=== PATIENT | female | born 1935 | race Caucasian/White ===

== ENCOUNTER 2020-04-22 18:50 | Observation (INO) ==
[2020-04-22] MEDS ORDERED: ONDANSETRON INJ 2 MG/ML 2 ML VIAL IV STA (19:10)
[2020-04-22] MEDS ORDERED: SODIUM CHLORIDE 0.9% 1000ML 500 ML IV ONE (19:10)
[2020-04-22 19:30] LABS: Basophils # (auto) 0.01 K/uL (0-0.2); Basophils % (auto) 0.1 %; Eosinophils # (auto) 0.05 K/uL (0-0.5); Eosinophils % (auto) 0.4 %; Hematocrit (blood only) 41.3 % (37-47); Hemoglobin 14.1 g/dL (12.0-16.0); Immature Granulocytes # (auto) 0.04 K/uL (0.00-0.02); Immature Granulocytes % (auto) 0.3 %; Lymphocytes # (auto) 1.27 K/uL (1.2-3.4); Lymphocytes % (auto) 10.4 %; Mean Corpuscular Hemoglobin 30.7 pg (25-34); Mean Corpuscular Hgb Conc 34.1 g/dL (32-36); Mean Platelet Volume 10.1 fL (7.4-10.4); Monocytes # (auto) 0.35 K/uL (0.11-0.59); Monocytes % (auto) 2.9 %; Neutrophils # (auto) 10.46 K/uL (1.4-6.5); Neutrophils % (auto) 85.9 %; Platelet Count 132 K/uL (130-400); RDW Coefficient of Variation 13.8 % (11.5-14.5); RDW Standard Deviation 45.5 fL (36.4-46.3); Red Blood Count 4.59 M/uL (4.2-5.4); White Blood Count 12.18 K/uL (4.8-10.8)
[2020-04-22 19:46] LABS: Alanine Aminotransferase 15 U/L (12-78); Aspartate Aminotransferase 20 U/L (15-37); BUN Creatinine Ratio 15.5 (10-20); Blood Urea Nitrogen 18 mg/dl (7-18); Calcium 9.7 mg/dl (8.5-10.1); Carbon Dioxide 26 mmol/L (21-32); Chloride 105 mmol/L (98-107); Creatinine Clr Calc Pharmacy 38.5 ml/min; Est GFR (African American) 48.5; Est GFR (Non-African American) 41.9; Glucose 134 mg/dl (70-99); Lipase 62 U/L (73-393); Potassium 3.5 mmol/L (3.5-5.1); Sodium 139 mmol/L (136-145)
[2020-04-22 19:51] LABS: Alkaline Phosphatase 77 U/L (45-117); Bilirubin,Total 0.8 mg/dl (0.2-1); Globulin 3.8 gm/dl (2.5-4.0); Total Protein 7.8 gm/dl (6.4-8.2); Troponin I < 0.015 ng/ml (0-0.045)
[2020-04-22] MEDS ORDERED: IOVERSOL 100ml IV ONE (19:57)
--- NOTE | 2020-04-22 20:18 | CT Scan Report ---
HEAD CT NONCONTRAST CT DOSE: 537.48 mGy.cm HISTORY: nausea vomiting, dizziness TECHNIQUE: Multiaxial CT images of the head were performed without the use of intravenous contrast. A utomated exposure control was utilized for this study. A dose lowering technique was utilized adheri ng to the principles of ALARA. Comparison: None. Findings: The paranasal sinuses and mastoid air cells are clear. The calvarium and skull base are int act. There is no mass, hematoma, midline shift, acute infarct. White matter hypodensity is nonspecifi c but suggestive of microvascular ischemic change. The ventricles and sulci demonstrate mild age-rela kiana involutional changes. 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 1 cm focus of encephalomalacia within the right cerebellar hemisphere is also consist ent with an old infarct. Impression: No acute intracranial abnormality. Atrophy and microvascular ischemic changes. A few old small infarc ts as described above. ACT 112: Negative or not required by law. Electronically signed by: Jarred Quintanilla M.D. 04/22/2020 8:17 PM
--- NOTE | 2020-04-22 20:26 | CT Scan Report ---
ABDOMEN AND PELVIS CT WITH IV CONTRAST CT DOSE: 1323.89 mGy.cm HISTORY: nausea vomiting TECHNIQUE: Multiaxial CT images of the abdomen and pelvis were performed following the use of intrave nous contrast. A dose lowering technique was utilized adhering to the principles of ALARA. COMPARISON STUDY: Abdomen and pelvis CT 02/14/2007. FINDINGS: Patchy groundglass densities and a few linear densities within the lung bases. This may rep resent mild pulmonary edema or an atypical pneumonia. The heart is enlarged. Pacemaker wires are note d. No pleural or pericardial effusions. There are poststernotomy changes. No pneumoperitoneum. No pne umatosis. No suspicious lytic or blastic osseous lesions. Subtle nodular contour to the liver consist ent with mild cirrhosis. No hepatic or splenic masses. The adrenal glands, pancreas, and right kidney are unremarkable. There is a punctate stone within the left kidney. A 6.4 cm exophytic cyst within t he lower pole the left kidney. No ureteral stones. No hydronephrosis. Multiple small gallstones parti ally filling the gallbladder. The gallbladder is distended. No definite gallbladder wall thickening. Normal caliber common bile duct. Calcified plaque within the normal caliber abdominal aorta. No retro peritoneal lymphadenopathy. The bladder, uterus, bilateral adnexa are within normal limits. No pelvic free fluid. A few colonic diverticula. No evidence for acute diverticulitis. No bowel wall thickenin g or obstruction. Normal appendix. IMPRESSION: 1. Multiple small gallstones within a distended gallbladder. No definite gallbladder wall thickening. Clinical correlation recommended to assess for the possibility of a developing acute cholecystitis g iven the gallbladder distention. 2. Patchy groundglass densities within the lung bases and cardiomegaly. This may represent mild pulmo nary edema or an atypical pneumonia. 3. Cirrhotic liver. 4. Left-sided nephrolithiasis. No ureteral stones. No hydronephrosis. 5. No bowel wall thickening or obstruction. 6. Normal appendix. ACT 112: Negative or not required by law. Electronically signed by: Jarred Quintanilla M.D. 04/22/2020 8:25 PM
[2020-04-22] MEDS ORDERED: PIPERACILL/TAZOBAC CONSULT ACTIVE PRN (20:42)
[2020-04-22] MEDS ORDERED: PIPERACILLIN/TAZOBACTAM 4.5 GM/120 ML BAG IV ONE (20:42)
--- NOTE | 2020-04-22 20:59 | Surgery Consultation ---
Date of Consultation April 22, 2020 Assessment & Plan (1) Cholelithiasis: -pt. is pain free and has normal LFTs -no surgical intervention at this time -pt. will need to be treated for underlying pneumonia prior to entertaining surgery Dr. Patel-Caroline saw the patient in the emergency room with her daughter-she appears to be resting comfortably and in no distress Her abdomen is soft she has no tenderness and is not complaining of any abdominal pain Her gallbladder on CT is distended with multiple gallstones but no thickening or pericholecystic fluid to indicate acute cholecystitis We will follow her with you with no urgent plan for cholecystectomy. May consider a HIDA scan depending on her progress History of Present Illness History of Present Illness 84 year old female presented to ED due to N/V over the past 24 hours. She denies cough or SOB. No fevers. She denies abdominal pain. No weight loss. No post-prandial abdominal pain. She denies recent travel or exposure to any contacts with COVID-19. In the ED, she was afebrile with stable vital signs. WBC was 12.1 Electrolytes, LFTs, and lipase were normal. CT scan showed distention of GB with gallstones. No GB wall thickening. She was noted to have bibasilar infiltrates. At the time of my exam she was resting comfortable in bed in no distress. Allergies Allergy/AdvReac Type Severity Reaction Status Date / Time oxycodone Allergy Intermediate HIVES Verified 04/22/20 20:15 propoxyphene Allergy Intermediate RASH Verified 04/22/20 20:15 lisinopril Allergy Unknown patient Verified 04/22/20 20:15 does not remember Home Medications Home Medications Medication Instructions Recorded Confirmed Type ascorbic acid (vitamin C) 100 mg 100 mg PO DAILY tab 06/10/19 04/22/20 History tablet cholecalciferol (vitamin D3) 25 25 mcg PO DAILY tab 06/10/19 04/22/20 History mcg (1,000 unit) tablet levothyroxine 125 mcg tablet 125 mcg PO DAILY #90 tab 08/26/19 04/22/20 Rx pen needle, diabetic 31 gauge x #100 ea 11/25/19 01/23/20 Rx 5/16" metoprolol succinate 100 mg 100 mg PO DAILY #90 tab 12/17/19 04/22/20 Rx tablet,extended release 24 hr lancing device with lancets kit #1 ea 01/09/20 01/23/20 Rx furosemide 40 mg tablet 40 mg PO DAILY #30 tab 02/03/20 04/22/20 Rx rivaroxaban 15 mg tablet 15 mg PO DAILY #90 tab 02/05/20 04/22/20 Rx flash glucose scanning reader #1 ea 02/15/20 Rx flash glucose sensor #1 ea 02/15/20 Rx amlodipine 5 mg tablet 5 mg PO BID #180 tab 02/19/20 04/22/20 Rx metformin 1,000 mg tablet 1,000 mg PO BID #180 tab 02/19/20 04/22/20 Rx calcium carbonate-vitamin D3 1 tab PO DAILY 04/22/20 04/22/20 History [Calcium 600 + D(3)] insulin glargine [Basaglar KwikPen 30 units SQ QAM 04/22/20 04/22/20 History U-100 Insulin] grhbnolrkbte-hejkrohs-vnflcj 1 tab PO DAILY 04/22/20 04/22/20 History [Centrum Silver] pravastatin 40 mg PO QPM 04/22/20 04/22/20 History Patient History Medical History (Updated 04/22/20 @ 20:56 by Leroy Zamorano PA-C) Atrial fibrillation with normal ventricular rate Diabetes DVT of lower extremity (deep venous thrombosis) History of cardioversion HX: breast cancer Hypertension Hypothyroidism Pure hypercholesterolemia Surgical History (Updated 04/16/20 @ 14:12 by Hernan Delaney MD) H/O aortic valve replacement History of hysterectomy Knee joint replacement status S/P breast lumpectomy S/P cardiac catheterization S/P rotator cuff repair S/P umbilical hernia repair, follow-up exam Family History Mother Myocardial infarction Cardiac disorder Brother Myocardial infarction Denies family history of Colon cancer Ovarian cancer Prostate cancer Breast cancer Social History Smoking Status: Never smoker Age Quit Using Tobacco: 31; Second Hand Exposure: No; Hx Alcohol Use: No Hx Substance Use: No Visual Impairment: No Limitations Hearing Ability: Hard of Hearing marital status: Single Current Living Situation: Alone current occupational status: retired Childhood Exposure to Second-Hand Smoke: No Dental Care, Regularly: No Physical Activity Frequency: Does not Exercise Seatbelt Use: always Review of Systems Constitutional: no fever and no chills Eyes: no diplopia Ear, Nose, Mouth, Throat: + hearing loss Respiratory: no cough and no dyspnea Cardiovascular: no chest pain Gastrointestinal: + nausea and + vomiting; no abdominal pain Genitourinary: no dysuria Musculoskeletal: no back pain Integumentary: no rash Neurologic: no localized weakness Physical Exam Constitutional: well developed and well nourished; no acute distress Eyes: wears glasses ENMT: Ears: no hearing impairment Neck: trachea midline Respiratory: normal respiratory effort; no respiratory distress and no labored breathing BS decreased slightly at bases Cardiovascular: Rate/Rhythm: regular rate and regular rhythm Gastrointestinal (Abdomen): Inspection/Auscultation: normal bowel sounds; abdomen not distended Percussion/Palpation: abdomen soft; abdomen nontender and no guarding Musculoskeletal: no calf pain Skin: no rashes, warm and dry Neurologic: moves all extremities Results & Data ([facility]) Vital Signs (Past 12 Hours) Vital Signs Temp Pulse Resp BP Pulse Ox 04/22/20 20:30 80 18 136/78 92 04/22/20 20:23 82 18 147/76 H 92 04/22/20 19:34 97 04/22/20 19:04 36.4 C L 85 20 113/74 89 L PG Care Time/CCT Total # of Minutes Spent Total Time Spent with Patient: Total time spent is greater than 50% in c oordination of care (as documented) at patient's floor/unit and/or counseling patient: Coding Level of Care Code 23358 Inpt Consult Level 5 Diagnoses Cholelithiasis K80.20
--- NOTE | 2020-04-22 21:13 | Emergency Department Note ---
Impression & Plan Respiratory failure with hypoxia, Pneumonia, Nausea & vomiting, Dizziness ED Provider Note NAME: GONZÁLEZ DICKENS AGE: 84 SEX: F : 1935 ARRIVES VIA: Ambulance INFORMANT: Patient, ED PROVIDER(S): Jey Denny MD Chief Complaint: Nausea, vomiting, dizziness HPI: Does present with the above complaints. He started today just around 1:30 PM. The patient states that she had gone about her normal day and been out shopping with the patient gradually felt the symptoms and they progressively got worse. The patient believes that she has vomited about 6 times. Patient is on rivaroxaban for history of A. fib. The patient denies any headache, shortness of breath, chest pain, or current nausea or vomiting. The patient denies any recent changes in medications or diet. The patient denies any recent travel. The patient did have a normal BSG prior to arrival. The patient was also noted to be in the high 80s and was placed on a small amount of supplemental oxygen. The patient does have a remote history of smoking many many years ago. The patient denies any current alcohol or tobacco use. The patient denies any vertiginous symptoms, numbness tingling or weakness. ROS: See HPI for pertinent positives and negatives. A total of 10 systems were reviewed and otherwise negative. Past medical history: See below Surgical history: See below Social history: See below Physical Exam: GENERAL: Wearing glasses and a mask, nasal cannula in place. NAD, non-toxic. EYE EXAM: Normal conjunctiva. PERRL, no anisocoria and EOM's grossly intact w/o pain. NECK: Supple, no nuchal rigidity, no adenopathy, non-tender. No signs of meningismus. LUNGS: Clear to auscultation. Normal chest wall mechanics. HEART: Irregularly irregular, no MRG. ABDOMEN: Abdomen soft, non-tender, normo-active bowel sounds, no masses, no rebound or guarding. BACK: No CVA TTP. SKIN: No rashes and no bruising. UPPER EXTREMITIES: Upper extremities are grossly normal. LOWER EXTREMITIES: Grossly normal, no edema. NEURO EXAM: A&O x3, cranial nerves II-XII grossly intact, normal speech, moves all 4 extremities on command w/o issue. Differential diagnoses: Appendicitis, ovarian cyst, ovarian torsion, ectopic , TOA, PID, infections, diverticulitis, UTI, obstruction, mesenteric ischemia, aortic pathology, inflammatory bowel disease, renal colic, PUD, pancreatitis, biliary pathology, hernia, volvulus, constipation, as well as other pathologies. Course: Patient was seen and evaluated the bedside. Full history physical exam was performed. EKG: Indication: Nausea vomiting A. fib, rate of 78, wide QRS, V paced complexes. Left bundle branch block throughout without obvious scar Bosa criteria. Imaging Studies: Radiology results as stated below per my review in the radiologist's interpretation: HEAD CT NONCONTRAST CT DOSE: 537.48 mGy.cm HISTORY: nausea vomiting, dizziness TECHNIQUE: Multiaxial CT images of the head were performed without the use of intravenous contrast. Automated exposure control was utilized for this study. A dose lowering technique was utilized adhering to the principles of ALARA. Comparison: None. Findings: The paranasal sinuses and mastoid air cells are clear. The calvarium and skull base are intact. There is no mass, hematoma, midline shift, acute infarct. White matter hypodensity is nonspecific but suggestive of microvascular ischemic change. The ventricles and sulci demonstrate mild age-related involutional changes. 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 1 cm focus of encephalomalacia within the right cerebellar hemisphere is also consistent with an old infarct. Impression: No acute intracranial abnormality. Atrophy and microvascular ischemic changes. A few old small infarcts as described above. ACT 112: Negative or not required by law. Electronically signed by: Jarred Quintanilla M.D. 04/22/2020 8:17 PM Dictated: 04/22/202005 Transcribed: 04/22/[address] WITH IV CONTRAST CT DOSE: 1323.89 mGy.cm HISTORY: nausea vomiting TECHNIQUE: Multiaxial CT images of the abdomen and pelvis were performed following the use of intravenous contrast. A dose lowering technique was utilized adhering to the principles of ALARA. COMPARISON STUDY: Abdomen and pelvis CT 02/14/2007. FINDINGS: Patchy groundglass densities and a few linear densities within the lung bases. This may represent mild pulmonary edema or an atypical pneumonia. The heart is enlarged. Pacemaker wires are noted. No pleural or pericardial effusions. There are poststernotomy changes. No pneumoperitoneum. No pneumatosis. No suspicious lytic or blastic osseous lesions. Subtle nodular contour to the liver consistent with mild cirrhosis. No hepatic or splenic masses. The adrenal glands, pancreas, and right kidney are unremarkable. There is a punctate stone within the left kidney. A 6.4 cm exophytic cyst within the lower pole the left kidney. No ureteral stones. No hydronephrosis. Multiple small gallstones partially filling the gallbladder. The gallbladder is distended. No definite gallbladder wall thickening. Normal caliber common bile duct. Calcified plaque within the normal caliber abdominal aorta. No retroperitoneal lymphadenopathy. The bladder, uterus, bilateral adnexa are within normal limits. No pelvic free fluid. A few colonic diverticula. No evidence for acute diverticulitis. No bowel wall thickening or obstruction. Normal appendix. IMPRESSION: 1. Multiple small gallstones within a distended gallbladder. No definite gallbladder wall thickening. Clinical correlation recommended to assess for the possibility of a developing acute cholecystitis given the gallbladder distention. 2. Patchy groundglass densities within the lung bases and cardiomegaly. This may represent mild pulmonary edema or an atypical pneumonia. 3. Cirrhotic liver. 4. Left-sided nephrolithiasis. No ureteral stones. No hydronephrosis. 5. No bowel wall thickening or obstruction. 6. Normal appendix. ACT 112: Negative or not required by law. Electronically signed by: Jarred Quintanilla M.D. 04/22/2020 8:25 PM Dictated: 04/22/202017 Transcribed: 04/22/202017 Cardiac monitoring: An order was placed for continuous cardiac monitoring. The monitor shows a rate of 78 with irregularly irregular rhythm. MDM: Patient was seen due to concern for nausea vomiting and lightheadedness. The patient denied a vertiginous symptoms or headache. Blood work is obtained along with a CT of the abdomen pelvis. EKG does show occasionally paced rhythm and A. fib. Patient is already anticoagulated. CT the head is unremarkable. Patient's blood work shows very mild white count. Patient CT did show multiple gallstones and distended gallbladder without any gallbladder wall thickening. Patient also does have the possibility for atypical pneumonia versus pulmonary edema. Given that patient does have some associated hypoxia I did consider the possibility of pneumonia or COVID or even aspiration pneumonia. Given the patient does have bilateral groundglass densities at the lung bases COVID swab was obtained. Blood cultures were obtained and the patient was given Zosyn. The patient does not complain of any acute symptoms of shortness of breath, chest pain. Troponin is negative. I did speak with Sean Zamorano PA-C who kindly evaluated the patient. The patient was admitted to the medicine service under Dr. Chiqui Weaver. Critical Care: I have personally spent 45 minutes of critical care time in direct management of this patient. This includes bedside care, interpretation of diagnostic studies, and testing, discussion with consultants, patient, and family members, and other require inpatient management activities. This 45 minutes is in excess of all separately billable procedures. Past Med/Surg History Medical History Atrial fibrillation with normal ventricular rate Diabetes DVT of lower extremity (deep venous thrombosis) History of cardioversion HX: breast cancer Hypertension Hypothyroidism Pure hypercholesterolemia Surgical History H/O aortic valve replacement History of hysterectomy Knee joint replacement status S/P breast lumpectomy S/P cardiac catheterization S/P rotator cuff repair S/P umbilical hernia repair, follow-up exam Family History Mother Myocardial infarction Cardiac disorder Brother Myocardial infarction Denies family history of Colon cancer Ovarian cancer Prostate cancer Breast cancer Social History Smoking Status: Never smoker Age Quit Using Tobacco: 31; Second Hand Exposure: No; Hx Alcohol Use: No Hx Substance Use: No Visual Impairment: No Limitations Hearing Ability: Hard of Hearing marital status: Single Current Living Situation: Alone current occupational status: retired Childhood Exposure to Second-Hand Smoke: No Dental Care, Regularly: No Physical Activity Frequency: Does not Exercise Seatbelt Use: always Allergies Allergies Allergy/AdvReac Type Severity Reaction Status Date / Time oxycodone Allergy Intermediate HIVES Verified 04/22/20 20:15 propoxyphene Allergy Intermediate RASH Verified 04/22/20 20:15 lisinopril Allergy Unknown patient Verified 04/22/20 20:15 does not remember Home Meds Home Medications Medication Instructions Recorded Confirmed ascorbic acid (vitamin C) 100 mg 100 mg PO DAILY tab 06/10/19 04/22/20 tablet cholecalciferol (vitamin D3) 25 25 mcg PO DAILY tab 06/10/19 04/22/20 mcg (1,000 unit) tablet calcium carbonate-vitamin D3 1 tab PO DAILY 04/22/20 04/22/20 [Calcium 600 + D(3)] insulin glargine [Basaglar KwikPen 30 units SQ QAM 04/22/20 04/22/20 U-100 Insulin] [id number]-[id number] 1 tab PO DAILY 04/22/20 04/22/20 [Centrum Silver] pravastatin 40 mg PO QPM 04/22/20 04/22/20 Previous Rx's Medication Instructions Recorded levothyroxine 125 mcg tablet 125 mcg PO DAILY #90 tab 08/26/19 pen needle, diabetic 31 gauge x #100 ea 11/25/1912/26" metoprolol succinate 100 mg 100 mg PO DAILY #90 tab 12/17/19 tablet,extended release 24 hr lancing device with lancets kit #1 ea 01/09/20 furosemide 40 mg tablet 40 mg PO DAILY #30 tab 02/03/20 rivaroxaban 15 mg tablet 15 mg PO DAILY #90 tab 02/05/20 flash glucose scanning reader #1 ea 02/15/20 flash glucose sensor #1 ea 02/15/20 amlodipine 5 mg tablet 5 mg PO BID #180 tab 02/19/20 metformin 1,000 mg tablet 1,000 mg PO BID #180 tab 02/19/20 Results & Data (ED) Vital Signs Vital Signs - 24 hr 04/22/20 19:04 04/22/20 19:34 04/22/20 20:23 Temperature 36.4 C L Temperature Source Oral Pulse Rate 85 82 Pulse Rate from SpO2 Sensor 89 Respiratory Rate 20 18 Respiratory Effort / Characteristics Non-Labored Spontaneous Respiratory Depth Normal Blood Pressure 113/74 147/76 H Blood Pressure Mean 87 85 Pulse Oximetry 89 L 97 92 Oxygen Delivery Method Room Air Nasal Cannula Oxygen Flow Rate 2 2 Sepsis Recent Fever Within 48 Hours No Sepsis New/Unexplained Change in Mental Status No Sepsis Action Taken by Nursing No Action Required 04/22/20 20:30 Temperature Temperature Source Pulse Rate 80 Pulse Rate from SpO2 Sensor 84 Respiratory Rate 18 Respiratory Effort / Characteristics Respiratory Depth Blood Pressure 136/78 Blood Pressure Mean 105 Pulse Oximetry 92 Oxygen Delivery Method Oxygen Flow Rate 2 Sepsis Recent Fever Within 48 Hours Sepsis New/Unexplained Change in Mental Status Sepsis Action Taken by Care Home Medications Current Medication List: was personally reviewed by me Laboratory Data Attestation: I reviewed the patient's lab results. Result diagrams: 04/22/20 19:01 04/22/20 19:01 Lab Results 04/22/20 04/22/20 04/22/20 Range/Units 19:01 19: 20:54 WBC 12.18 H (4.8-10.8) K/uL RBC 4.59 (4.2-5.4) M/uL Hgb 14.1 (12.0-16.0) g/dL Hct 41.3 (37-47) % MCV 90.0 (80-100) fL MCH 30.7 (25-34) pg MCHC 34.1 (32-36) g/dL RDW Std Deviation 45.5 (36.4-46.3) fL RDW Coeff of Patti 13.8 (11.5-14.5) % Plt Count 132 (130-400) K/uL MPV 10.1 (7.4-10.4) fL Immature Gran % (Auto) 0.3 % Neut % (Auto) 85.9 % Lymph % (Auto) 10.4 % Liberty % (Auto) 2.9 % Eos % (Auto) 0.4 % Baso % (Auto) 0.1 % Neut # (Auto) 10.46 H (1.4-6.5) K/uL Lymph # (Auto) 1.27 (1.2-3.4) K/uL Liberty # (Auto) 0.35 (0.11-0.59) K/uL Eos # (Auto) 0.05 (0-0.5) K/uL Baso # (Auto) 0.01 (0-0.2) K/uL Immature Gran # (Auto) 0.04 H (0.00-0.02) K/uL Sodium 139 (136-145) mmol/L Potassium 3.5 (3.5-5.1) mmol/L Chloride 105 (98-107) mmol/L Carbon Dioxide 26 (21-32) mmol/L Anion Gap 8.0 (3-11) BUN 18 (7-18) mg/dl Creatinine 1.19 (0.6-1.2) mg/dl Est Cr Clr Drug Dosing 38.5 ml/min Est GFR ( Amer) 48.5 Est GFR (Non-Af Amer) 41.9 BUN/Creatinine Ratio 15.5 (10-20) Glucose 134 H (70-99) mg/dl Calcium 9.7 (8.5-10.1) mg/dl Total Bilirubin 0.8 (0.2-1) mg/dl AST 20 (15-37) U/L ALT 15 (12-78) U/L Alkaline Phosphatase 77 (45-117) U/L Troponin I < 0.015 (0-0.045) ng/ml Total Protein 7.8 (6.4-8.2) gm/dl Albumin 4.0 (3.4-5.0) gm/dl Globulin 3.8 (2.5-4.0) gm/dl Albumin/Globulin Ratio 1.0 (0.9-2) Lipase 62 L (73-393) U/L COVID-19 Eval Order Covid19 Done at [facility] Administered Medications Discontinued Medications Sodium Chloride (Nss 1000ml) 500 mls @ 999 mls/hr IV .Q31M ONE Stop: 04/22/20 19:40 Last Infusion: 04/22/20 20:32 Dose: 0 mls/hr Documented by: [id number] Admin: 04/22/20 19:33 Dose: 999 mls/hr Documented by: [id number] Ioversol (Ioversol 100ml) 90 ml IV ONCE ONE Stop: 04/22/20 19:58 Last Admin: 04/22/20 19:58 Dose: 90 ml Documented by: [id number] Ondansetron HCl (Ondansetron Inj 2 Mg/Ml 2 Ml Vial) 4 mg IV NOW STA Stop: 04/22/20 19:11 Last Admin: 04/22/20 19:33 Dose: 4 mg Documented by: [id number] Discharge Plan Visit Data Chief Complaint: Vomiting Stated Complaint: dizzy, nausea, vomiting ED Provider: Jey Denny Discharge Problem: Respiratory failure with hypoxia, Pneumonia, Nausea & vomiting, Dizziness Forms Stand Alone Forms: My [employer] Prescriptions Prescriptions: No Action levothyroxine 125 mcg tablet 125 mcg PO DAILY Qty: 90 RF: 11 (DME) pen needle, diabetic [BD Ultra-Fine Short Pen Needle] 31 gauge x 5/16" needle See Dose Instructions .ROUTE .MEDSUPPLY Qty: 100 RF: 1 metoprolol succinate 100 mg tablet extended release 24 hr 100 mg PO DAILY Qty: 90 RF: 3 (DME) lancing device with lancets [Accu-Chek FastClix Lancing Dev] Kit See Rx Instructions .ROUTE .MEDSUPPLY Qty: 1 RF: 0 furosemide 40 mg tablet 40 mg PO DAILY Qty: 30 RF: 5 Xarelto 15 mg tablet 15 mg PO DAILY Qty: 90 RF: 1 (DME) FreeStyle Shannan 14 Day Sensor Kit See Rx Instructions .ROUTE .MEDSUPPLY Qty: 1 RF: 0 (DME) FreeStyle Shannan 14 Day [place] Misc See Rx Instructions .ROUTE .MEDSUPPLY Qty: 1 RF: 0 amlodipine 5 mg tablet 5 mg PO BID Qty: 180 RF: 1 metformin 1,000 mg tablet 1,000 mg PO BID Qty: 180 RF: 1 ascorbic acid (vitamin C) 100 mg tablet 100 mg PO DAILY RF: 0 cholecalciferol (vitamin D3) 25 mcg (1,000 unit) tablet 25 mcg PO DAILY RF: 0 calcium carbonate-vitamin D3 [Calcium 600 + D(3)] 600 mg(1,500mg) -200 unit Tablet 1 tab PO DAILY RF: 0 pravastatin 40 mg tablet 40 mg PO QPM RF: 0 Basaglar KwikPen U-100 Insulin 100 unit/mL (3 mL) insulin pen 30 units SQ QAM RF: 0 Centrum Silver Tablet 1 tab PO DAILY RF: 0 Discharge Problem: Respiratory failure with hypoxia Qualifiers: Chronicity: acute Qualified Code(s): J96.01 - Acute respiratory failure with hypoxia Pneumonia Qualifiers: Pneumonia type: due to unspecified organism Laterality: bilateral Lung location: lower lobe of lung Qualified Code(s): J18.9 - Pneumonia, unspecified organism Nausea & vomiting Qualifiers: Vomiting type: unspecified Vomiting Intractability: non-intractable Qualified Code(s): R11.2 - Nausea with vomiting, unspecified
[2020-04-22 23:30] LABS: Appearance Urine Turbid (Clear); Bacteria Urine Automated 4+ (Negative); Bilirubin Urine Negative (Negative); Blood Urine Trace (Negative); Color Urine Yellow; Epithelial Cell Urine Auto >30 /lpf (0-5); Glucose Urine UA Negative (Negative); Ketones Urine Negative (Negative); Leukocyte Esterase Urine 2+ (Negative); Nitrite Urine Negative (Negative); Protein Urine Negative (Negative); Specific Gravity Urine 1.028 (1.000-1.030); Urobilinogen Urine Negative (Negative); WBC Urine Automated >30 /hpf (0-5)
--- NOTE | 2020-04-22 23:44 | History & Physical Report ---
Date of Service April 22, 2020 Assessment & Plan (1) Nausea & vomitin-year-old female presenting with acute onset nausea with multiple episodes of nonbloody/nonbilious emesis. She is afebrile, hemodynamically stable, no acute distress. CT of the abdomen with multiple gal lstones and distention of the gallbladder. LFTs are unremarkable. Etiology of nausea uncertain. Has resolved at this time Check right upper quadrant ultrasound Repeat LFTs in the morning Zofran as needed for nausea Fluid and electrolyte repletion as needed P.o. as tolerated Present on Admission?: Yes (2) Pneumonia: CT chest with bilateral patchy infiltrates noted question pulmonary edema versus atypical pneumonia. Patient denies symptoms of fever/chills/cough/shortness of breath/night sweats. Also denies weight gain/orthopnea/edema. She does have a mild neutrophil predominant leukocytosis with WBC = 12.18. COVID testing by PCR negative. Currently no respiratory distress. Adequate oxygenation on 2 L nasal cannula. Patient does not wear oxygen at home Observation to medical floor Continue supplemental oxygen as needed to maintain saturation greater than 92% Check BNP Check procalcitonin Follow cultures Ceftriaxone and azithromycin to cover for community-acquired pneumonia Present on Admission?: Yes (3) Dizziness: Patient reports dizziness with positional changes over the last few days Check orthostatic vital signs Gentle fluids Present on Admission?: Yes (4) Respiratory failure with hypoxia: Patient hypoxic in the ER to 89% on room air. Has improved with supplemental oxygen. Question pneumonia versus possible CHF as above Supplemental oxygen as needed Continue to monitor Present on Admission?: Yes (5) CAD (coronary artery disease): Chronic. Stable. Patient denies chest pain. Troponin is negative and EKG with no evidence of acute ischemia Continue metoprolol 100 mg p.o. daily Continue pravastatin 40 mg p.o. every p.m. Present on Admission?: Yes (6) Hypertension: Blood pressure currently acceptable Continue amlodipine 5 mg p.o. twice daily Continue metoprolol Continue to monitor Present on Admission?: Yes (7) Atrial fibrillation with normal ventricular rate: Rate controlled. Continue metoprolol Continue rivaroxaban Present on Admission?: Yes (8) Hyperlipidemia: Chronic. Stable. Continue pravastatin Present on Admission?: Yes (9) Hypothyroidism: Chronic. Check TSH with a.m. labs Present on Admission?: Yes (10) Type 2 diabetes mellitus treated with insulin: Blood sugar = 134 Hold metformin Continue insulin Basaglar 30 units every morning with insulin sliding scale Goal blood sugar 100-140 [id number], electrolytes within normal limits, check magnesium and phosphorus x1, consistent carb diet as tolerated Prophylaxiscontinue rivaroxaban at home dose Codefull per discussion with patient Dispositionobservation to medical floor Present on Admission?: Yes History of Present Illness Chief Complaint: Nausea, vomiting Primary Care Provider: Nu Castro MD Temi Carter is an 84-year-old female presenting with nausea and v omiting. Patient reports nausea with approximately 10 episodes of nonbloody/nonbilious emesis and p.o. intolerance that started today around 1330. Patient denies chest pain/shortness of breath/fever /chills/headache/dysuria/myalgias/malaise/night sweats/loss of taste or smell. She did have some dizziness upon standing for the last few days. Otherwise, no complaints. Patient with past medical history significant for atrial fibrillation on rivaroxaban anticoagulation, diabetes, hypertension, hyperlipidemia, hypothyroidism and bioprosthetic aortic valve replacement. On arrival to the ER she was found to be afebrile, hemodynamically stable, mildly hypoxic at 89% on room air. Supplemental oxygen was placed in patient's saturations improved to 92% on 2 L. Patient denies recent travel or contact with COVID 19+ individuals. ER course: Zosyn, Zofran Allergies Allergy/AdvReac Type Severity Reaction Status Date / Time oxycodone Allergy Intermediate HIVES Verified 04/22/20 20:15 propoxyphene Allergy Intermediate RASH Verified 04/22/20 20:15 lisinopril Allergy Unknown patient Verified 04/22/20 20:15 does not remember Home Medications Home Medications Medication Instructions Recorded Confirmed Type ascorbic acid (vitamin C) 100 mg 100 mg PO DAILY tab 06/10/19 04/22/20 History tablet cholecalciferol (vitamin D3) 25 25 mcg PO DAILY tab 06/10/19 04/22/20 History mcg (1,000 unit) tablet levothyroxine 125 mcg tablet 125 mcg PO DAILY #90 tab 08/26/19 04/22/20 Rx pen needle, diabetic 31 gauge x #100 ea 11/25/19 01/23/20 Rx 5/16" metoprolol succinate 100 mg 100 mg PO DAILY #90 tab 12/17/19 04/22/20 Rx tablet,extended release 24 hr lancing device with lancets kit #1 ea 01/09/20 01/23/20 Rx furosemide 40 mg tablet 40 mg PO DAILY #30 tab 02/03/20 04/22/20 Rx rivaroxaban 15 mg tablet 15 mg PO DAILY #90 tab 02/05/20 04/22/20 Rx flash glucose scanning reader #1 ea 02/15/20 Rx flash glucose sensor #1 ea 02/15/20 Rx amlodipine 5 mg tablet 5 mg PO BID #180 tab 02/19/20 04/22/20 Rx metformin 1,000 mg tablet 1,000 mg PO BID #180 tab 02/19/20 04/22/20 Rx calcium carbonate-vitamin D3 1 tab PO DAILY 04/22/20 04/22/20 History [Calcium 600 + D(3)] insulin glargine [Basaglar KwikPen 30 units SQ QAM 04/22/20 04/22/20 History U-100 Insulin] mbartjdfzjls-ajefjury-labmaj 1 tab PO DAILY 04/22/20 04/22/20 History [Centrum Silver] pravastatin 40 mg PO QPM 04/22/20 04/22/20 History Past Med/Surg History Medical History Atrial fibrillation with normal ventricular rate Diabetes DVT of lower extremity (deep venous thrombosis) History of cardioversion HX: breast cancer Hypertension Hypothyroidism Pure hypercholesterolemia Surgical History H/O aortic valve replacement History of hysterectomy Knee joint replacement status S/P breast lumpectomy S/P cardiac catheterization S/P rotator cuff repair S/P umbilical hernia repair, follow-up exam Family History Mother Myocardial infarction Cardiac disorder Brother Myocardial infarction Denies family history of Colon cancer Ovarian cancer Prostate cancer Breast cancer Social History Smoking Status: Never smoker Age Quit Using Tobacco: 31; Second Hand Exposure: No; Hx Alcohol Use: No Hx Substance Use: No Visual Impairment: No Limitations Hearing Ability: Hard of Hearing marital status: Single Current Living Situation: Alone current occupational status: retired Childhood Exposure to Second-Hand Smoke: No Dental Care, Regularly: No Physical Activity Frequency: Does not Exercise Seatbelt Use: always Review of Systems Review of Systems: All systems reviewed & are unremarkable except as noted in HPI & below Physical Exam Physical Exam: General: patient resting comfortably, NAD, non-toxic in appearance, AA&O x3, hard of hearing Skin: warm, dry, intact, no rashes or lesions HEENT: NC/AT, PERRL, EOMI, anicteric sclera, conjunctiva without injection, external ear normal to inspection and nontender, nares patent, slightly dry mucus membranes, dentition intact, no oropharyngeal lesions, neck supple, trachea midline, no LAD, no thyromegaly, no JVD Heart: +S1/S2, irregularly irregular, 3/6 systolic ejection murmur at right second intercostal space Lungs: equal air entry bilaterally, faint crackles at the bases bilaterally, left greater than right Abd: +BS, soft, NT/ND, no masses/organomegaly/ascites Ext: warm, 2+ pulses in UE/LE bilaterally, no clubbing/cyanosis, trace pitting edema bilaterally Neuro: nonfocal, patient AA&O x 3, speech intact, no facial droop, moving all extremities on command with equal strength 5/5 Results & Data Results & Data ([facility]) Vital Signs (Past 12 Hours) Vital Signs Temp Pulse Resp BP Pulse Ox 04/22/20 22:00 89 18 144/88 H 04/22/20 21:00 75 18 136/77 92 04/22/20 20:30 80 18 136/78 92 04/22/20 20:23 82 18 147/76 H 92 04/22/20 19:34 97 04/22/20 19:04 36.4 C L 85 20 113/74 89 L Laboratory Results Lab Results 04/22/20 04/22/20 04/22/20 Range/Units 19:01 19:01 20:54 WBC 12.18 H (4.8-10.8) K/uL RBC 4.59 (4.2-5.4) M/uL Hgb 14.1 (12.0-16.0) g/dL Hct 41.3 (37-47) % MCV 90.0 (80-100) fL MCH 30.7 (25-34) pg MCHC 34.1 (32-36) g/dL RDW Std Deviation 45.5 (36.4-46.3) fL RDW Coeff of Patti 13.8 (11.5-14.5) % Plt Count 132 (130-400) K/uL MPV 10.1 (7.4-10.4) fL Immature Gran % (Auto) 0.3 % Neut % (Auto) 85.9 % Lymph % (Auto) 10.4 % Greer % (Auto) 2.9 % Eos % (Auto) 0.4 % Baso % (Auto) 0.1 % Neut # (Auto) 10.46 H (1.4-6.5) K/uL Lymph # (Auto) 1.27 (1.2-3.4) K/uL Greer # (Auto) 0.35 (0.11-0.59) K/uL Eos # (Auto) 0.05 (0-0.5) K/uL Baso # (Auto) 0.01 (0-0.2) K/uL Immature Gran # (Auto) 0.04 H (0.00-0.02) K/uL Sodium 139 (136-145) mmol/L Potassium 3.5 (3.5-5.1) mmol/L Chloride 105 (98-107) mmol/L Carbon Dioxide 26 (21-32) mmol/L Anion Gap 8.0 (3-11) BUN 18 (7-18) mg/dl Creatinine 1.19 (0.6-1.2) mg/dl Est Cr Clr Drug Dosing 38.5 ml/min Est GFR ( Amer) 48.5 Est GFR (Non-Af Amer) 41.9 BUN/Creatinine Ratio 15.5 (10-20) Glucose 134 H (70-99) mg/dl Calcium 9.7 (8.5-10.1) mg/dl Total Bilirubin 0.8 (0.2-1) mg/dl AST 20 (15-37) U/L ALT 15 (12-78) U/L Alkaline Phosphatase 77 (45-117) U/L Troponin I < 0.015 (0-0.045) ng/ml Total Protein 7.8 (6.4-8.2) gm/dl Albumin 4.0 (3.4-5.0) gm/dl Globulin 3.8 (2.5-4.0) gm/dl Albumin/Globulin Ratio 1.0 (0.9-2) Lipase 62 L (73-393) U/L COVID-19 Eval Order Covid19 Done at [facility] COVID-19 PCR (Negative) 04/22/20 Range/Units 20:54 WBC (4.8-10.8) K/uL RBC (4.2-5.4) M/uL Hgb (12.0-16.0) g/dL Hct (37-47) % MCV (80-100) fL MCH (25-34) pg MCHC (32-36) g/dL RDW Std Deviation (36.4-46.3) fL RDW Coeff of Patti (11.5-14.5) % Plt Count (130-400) K/uL MPV (7.4-10.4) fL Immature Gran % (Auto) % Neut % (Auto) % Lymph % (Auto) % Greer % (Auto) % Eos % (Auto) % Baso % (Auto) % Neut # (Auto) (1.4-6.5) K/uL Lymph # (Auto) (1.2-3.4) K/uL Greer # (Auto) (0.11-0.59) K/uL Eos # (Auto) (0-0.5) K/uL Baso # (Auto) (0-0.2) K/uL Immature Gran # (Auto) (0.00-0.02) K/uL Sodium (136-145) mmol/L Potassium (3.5-5.1) mmol/L Chloride (98-107) mmol/L Carbon Dioxide (21-32) mmol/L Anion Gap (3-11) BUN (7-18) mg/dl Creatinine (0.6-1.2) mg/dl Est Cr Clr Drug Dosing ml/min Est GFR ( Amer) Est GFR (Non-Af Amer) BUN/Creatinine Ratio (10-20) Glucose (70-99) mg/dl Calcium (8.5-10.1) mg/dl Total Bilirubin (0.2-1) mg/dl AST (15-37) U/L ALT (12-78) U/L Alkaline Phosphatase (45-117) U/L Troponin I (0-0.045) ng/ml Total Protein (6.4-8.2) gm/dl Albumin (3.4-5.0) gm/dl Globulin (2.5-4.0) gm/dl Albumin/Globulin Ratio (0.9-2) Lipase (73-393) U/L COVID-19 Eval Order COVID-19 PCR NEGATIVE (Negative) Diagnostic Findings HEAD CT NONCONTRAST CT DOSE: 537.48 mGy.cm HISTORY: nausea vomiting, dizziness TECHNIQUE: Multiaxial CT images of the head were performed without the use of intravenous contrast. Automated exposure control was utilized for this study. A dose lowering technique was utilized adhering to the principles of ALARA. Comparison: None. Findings: The paranasal sinuses and mastoid air cells are clear. The calvarium and skull base are intact. There is no mass, hematoma, midline shift, acute infarct. White matter hypodensity is nonspecific but suggestive of microvascular ischemic change. The ventricles and sulci demonstrate mild age-related involutional changes. 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 1 cm focus of encephalomalacia within the right cerebellar hemisphere is also consistent with an old infarct. Impression: No acute intracranial abnormality. Atrophy and microvascular ischemic changes. A few old small infarcts as described above. ACT 112: Negative or not required by law. Electronically signed by: Jarred Quintanilla M.D. 04/22/2020 8:17 PM Dictated: 04/22/202005 Transcribed: 04/22/[address] WITH IV CONTRAST CT DOSE: 1323.89 mGy.cm HISTORY: nausea vomiting TECHNIQUE: Multiaxial CT images of the abdomen and pelvis were performed following the use of intravenous contrast. A dose lowering technique was utilized adhering to the principles of ALARA. COMPARISON STUDY: Abdomen and pelvis CT 02/14/2007. FINDINGS: Patchy groundglass densities and a few linear densities within the lung bases. This may represent mild pulmonary edema or an atypical pneumonia. The heart is enlarged. Pacemaker wires are noted. No pleural or pericardial effusions. There are poststernotomy changes. No pneumoperitoneum. No pneumatosis. No suspicious lytic or blastic osseous lesions. Subtle nodular contour to the liver consistent with mild cirrhosis. No hepatic or splenic masses. The adrenal glands, pancreas, and right kidney are unremarkable. There is a punctate stone within the left kidney. A 6.4 cm exophytic cyst within the lower pole the left kidney. No ureteral stones. No hydronephrosis. Multiple small gallstones partially filling the gallbladder. The gallbladder is distended. No definite gallbladder wall thickening. Normal caliber common bile duct. Calcified plaque within the normal caliber abdominal aorta. No retroperitoneal lymphadenopathy. The bladder, uterus, bilateral adnexa are within normal limits. No pelvic free fluid. A few colonic diverticula. No evidence for acute diverticulitis. No bowel wall thickening or obstruction. Normal appendix. IMPRESSION: 1. Multiple small gallstones within a distended gallbladder. No definite gallbladder wall thickening. Clinical correlation recommended to assess for the possibility of a developing acute cholecystitis given the gallbladder distention. 2. Patchy groundglass densities within the lung bases and cardiomegaly. This may represent mild pulmonary edema or an atypical pneumonia. 3. Cirrhotic liver. 4. Left-sided nephrolithiasis. No ureteral stones. No hydronephrosis. 5. No bowel wall thickening or obstruction. 6. Normal appendix. ACT 112: Negative or not required by law. Chest x-rayper my interpretation, sternotomy wires in place, pacemaker device in place, cardiomegaly, increased interstitial markings Electronically signed by: Jarred Quintanilla M.D. 04/22/2020 8:25 PM Dictated: 04/22/202017 Transcribed: 04/22/202017 ECG Additional Comments: EKG shows atrial fibrillation with ventricular pacing complexes, left axis deviation, QRS = 138, QTc = 495 Code Status & VTE Plan Code Status Full code VTE Prophylaxis Plan VTE Prophylaxis will be ordered: Yes PG Care Time/CCT Total # of Minutes Spent Total Time Spent with Patient: Total time spent is greater than 50% in coordination of care (as documented) at patient's floor/unit and/or counseling patient: Coding Level of Care Code 08125 OBS Care - Level 3 Diagnoses Nausea & vomiting R11.2 Vomiting Intractability: non-intractable Vomiting type: unspecified Pneumonia J18.9 Laterality: bilateral Lung location: lower lobe of lung Pneumonia type: due to unspecified organism Dizziness R42 Respiratory failure with hypoxia J96.01 Chronicity: acute CAD (coronary artery disease) I25.10 Coronary Disease-Associated Artery/Lesion type: craig artery [place] vs. transplanted heart: craig heart Associated angina: without angina Hypertension I10 Hypertension type: essential hypertension Atrial fibrillation with normal ventricular rate I48.91 Hyperlipidemia E78.5 Hyperlipidemia type: unspecified Hypothyroidism E03.9 Hypothyroidism type: unspecified Type 2 diabetes mellitus treated with insulin E11.9; Z79.4 (1) Nausea & vomiting Vomiting Intractability: non-intractable Vomiting type: unspecified Qualified Code(s): R11.2 - Nausea with vomiting, unspecified (2) Pneumonia Laterality: bilateral Lung location: lower lobe of lung Pneumonia type: due to unspecified organism Qualified Code(s): J18.9 - Pneumonia, unspecified organism (3) Respiratory failure with hypoxia Chronicity: acute Qualified Code(s): J96.01 - Acute respiratory failure with hypoxia (4) CAD (coronary artery disease) Coronary Disease-Associated Artery/Lesion type: craig artery [place] vs. transplanted heart: craig heart Associated angina: without angina Qualified Code(s): I25.10 - Atherosclerotic heart disease of craig coronary artery without angina pectoris (5) Hypertension Hypertension type: essential hypertension Qualified Code(s): I10 - Essential (primary) hypertension (6) Hyperlipidemia Hyperlipidemia type: unspecified Qualified Code(s): E78.5 - Hyperlipidemia, unspecified (7) Hypothyroidism Hypothyroidism type: unspecified Qualified Code(s): E03.9 - Hypothyroidism, unspecified
[2020-04-23] MEDS ORDERED: DEXTROSE 50% 50 ML SYRINGE IV PRN (00:20)
[2020-04-23] MEDS ORDERED: GLUCAGON FOR INJ 1 MG VIAL SQ PRN (00:20)
[2020-04-23] MEDS ORDERED: GLUCOSE 40% GEL 15 GM TUBE PO PRN (00:20)
[2020-04-23] MEDS ORDERED: ONDANSETRON INJ 2 MG/ML 2 ML VIAL IV PRN (00:20)
[2020-04-23] MEDS ORDERED: CARBOHYDRATES FOR HYPOGLYCEMIA PO PRN (00:20)
[2020-04-23] MEDS ORDERED: AZITHROMYCIN 500 MG in DEXTROSE 5% 250 ML IV ONE (00:20)
[2020-04-23] MEDS ORDERED: GLUCOSE 10 TABS/TUBE PO PRN (00:20)
[2020-04-23] MEDS ORDERED: ACETAMINOPHEN 325 MG TAB PO PRN (00:20)
[2020-04-23 00:43] LABS: NT Pro B Type Natriuretic Pept 3323 pg/ml (0-1800)
[2020-04-23] MEDS ORDERED: PNEUMOCOCCAL Polysaccharide Vaccine 25mcg/0.5mL vial/Syr IM ONE (02:15)
[2020-04-23] MEDS ORDERED: cefTRIAXone SODIUM 2,000 MG in DEXTROSE 5% 50 ML IV SCH (06:00)
[2020-04-23 06:19] LABS: Basophils # (auto) 0.01 K/uL (0-0.2); Basophils % (auto) 0.1 %; Eosinophils # (auto) 0.02 K/uL (0-0.5); Eosinophils % (auto) 0.2 %; Hematocrit (blood only) 37.9 % (37-47); Hemoglobin 12.3 g/dL (12.0-16.0); Immature Granulocytes # (auto) 0.01 K/uL (0.00-0.02); Immature Granulocytes % (auto) 0.1 %; Lymphocytes # (auto) 1.55 K/uL (1.2-3.4); Lymphocytes % (auto) 17.2 %; Mean Corpuscular Hemoglobin 29.2 pg (25-34); Mean Corpuscular Hgb Conc 32.5 g/dL (32-36); Mean Platelet Volume 10.2 fL (7.4-10.4); Monocytes # (auto) 0.67 K/uL (0.11-0.59); Monocytes % (auto) 7.4 %; Neutrophils # (auto) 6.77 K/uL (1.4-6.5); Platelet Count 138 K/uL (130-400); RDW Standard Deviation 45.7 fL (36.4-46.3); Red Blood Count 4.21 M/uL (4.2-5.4); White Blood Count 9.03 K/uL (4.8-10.8)
--- NOTE | 2020-04-23 06:26 | XRay Report ---
XR chest 1V portable HISTORY: 84 years-old Female hypoxia, ?PNA acute hypoxia with possible pneumonia COMPARISON: CT abdomen and pelvis of same day, chest radiograph 06/04/2014 TECHNIQUE: Portable AP view of the chest FINDINGS: Moderate cardiomegaly. Prior median sternotomy with left subclavian pacer and prosthetic aortic valve . Calcified plaque of the thoracic aortic arch. No pneumothorax, pleural effusion or overt pulmonary edema. Chronic interstitial coarsening with mild bibasilar opacities. Pulmonary vascular congestion. Unchanged moderate hemidiaphragmatic elevation. Degenerative changes of the shoulders and spine. IMPRESSION: 1. Cardiomegaly with prior median sternotomy and prosthetic aortic valve. 2. Pulmonary vascular congestion without overt pulmonary edema. 3. Mild bibasilar opacities are suggestive of probable atelectasis. ACT 112: Negative or not required by law. The above report was generated using voice recognition software. It may contain grammatical, syntax o r spelling errors. Electronically signed by: Melchor Hawley M.D. 04/23/2020 6:24 AM
[2020-04-23] MEDS ORDERED: LEVOTHYROXINE SODIUM 125 MCG TABLET PO SCH (06:30)
--- NOTE | 2020-04-23 06:31 | Surgery Progress Note ---
Date of Service April 23, 2020 Assessment & Plan (1) Nausea & vomiting: Patient does not appear to have acute cholecystitis I would treat her expectantly Advance diet as tolerated Treat for pulmonary infiltrates Could consider HIDA scan depending on her progress but would not change plan at this point Admission and Anticipated Discharge Date Admission Date: April 22, 2020 Subjective Patient is awake and alert with no complaints no abdominal pain Physical Exam Constitutional: no acute distress and not ill appearing Eyes: + anicteric sclerae Respiratory: normal respiratory effort; no respiratory distress Cardiovascular: Rate/Rhythm: regular rate Gastrointestinal (Abdomen): Inspection/Auscultation: abdomen not distended Percussion/Palpation: abdomen soft Skin: no rashes, warm and dry Neurologic: awake Psychiatric: Orientation: alert Results & Data ([facility]) Vital Signs (Past 12 Hours) Vital Signs Temp Pulse Resp BP Pulse Ox 04/23/20 00:30 36.7 C 04/22/20 23:30 90 21 126/69 95 04/22/20 23:01 94 H 19 118/53 L 94 04/22/20 22:00 89 18 144/88 H 04/22/20 21:00 75 18 136/77 92 04/22/20 20:30 80 18 136/78 92 04/22/20 20:23 82 18 147/76 H 92 04/22/20 19:34 97 04/22/20 19:04 36.4 C L 85 20 113/74 89 L PG Care Time/CCT Total # of Minutes Spent Total Time Spent with Patient: Total time spent is greater than 50% in coordination of care (as documented) at patient's floor/unit and/or counseling patient: Coding Level of Care Code 62139 Subseq Hosp Care Lvl 3 Diagnoses Nausea & vomiting R11.2 Vomiting Intractability: non-intractable Vomiting type: unspecified (1) Nausea & vomiting Vomiting Intractability: non-intractable Vomiting type: unspecified Qualified Code(s): R11.2 - Nausea with vomiting, unspecified
[2020-04-23 06:48] LABS: Albumin Level 3.2 gm/dl (3.4-5.0); Bilirubin Direct 0.2 mg/dl (0-0.2); Calcium 9.2 mg/dl (8.5-10.1); Creatinine Clr Calc Pharmacy 40.1 ml/min; Est GFR (African American) 51.1; Est GFR (Non-African American) 44.1; Magnesium 2.4 mg/dl (1.8-2.4); Potassium 3.7 mmol/L (3.5-5.1)
[2020-04-23 07:05] LABS: Bilirubin,Total 0.7 mg/dl (0.2-1); Phosphorus 3.1 mg/dl (2.5-4.9); Thyroid Stimulating Hormone 0.825 uIu/ml (0.300-4.500); Total Protein 6.5 gm/dl (6.4-8.2)
[2020-04-23] MEDS: INSULIN ASPART 100 UNITS/ML 3 ML PEN SC SCH ×2 (08:39→12:45)
[2020-04-23] MEDS ORDERED: FUROSEMIDE 40 MG TAB PO SCH (09:00)
[2020-04-23] MEDS ORDERED: AMLODIPINE BESYLATE 5 MG TAB PO SCH (09:00)
[2020-04-23] MEDS ORDERED: INSULIN GLARGINE SOLOSTAR 100 UNITS/ML 3 ML PEN SQ SCH (09:00)
[2020-04-23] MEDS ORDERED: METOPROLOL SUCC 50MG EXT REL TAB PO SCH (09:00)
--- NOTE | 2020-04-23 10:15 | Ultrasound Report ---
ABDOMINAL ULTRASOUND, RIGHT UPPER QUADRANT HISTORY: Abnormal CT. Distended gallbladder. ?developing acute cholecystitis. COMPARISON: Abdomen and pelvis CT 04/22/2020. FINDINGS: Pancreas: The pancreatic tail is obscured by overlying bowel gas. The remaining portions of the pancr eas are within normal limits. Liver: Subtle nodular contour to the liver consistent with mild cirrhosis. No hepatic masses. Gallbladder: Multiple stones filling the gallbladder. No gallbladder wall thickening. No pericholecys tic fluid. CBD: 7 mm. This is within the range of normal limits given the patient's age. Right kidney: No hydronephrosis. IMPRESSION: 1. The gallbladder is filled with multiple small gallstones. No definite gallbladder wall thickening. 2. Mild cirrhosis. ACT 112: Negative or not required by law. Electronically signed by: Jarred Quintanilla M.D. 04/23/2020 10:14 AM
--- NOTE | 2020-04-23 12:11 | Discharge Summary ---
Date of Service April 23, 2020 Admission HPI Per Admitting Provider Temi Carter is an 84-year-old female presenting with nausea and vomiting. Patient reports nausea with approximately 10 episodes of nonbloody/nonbilious emesis and p.o. intolerance that started today around 1330. Patient denies chest pain/shortness of breath/fever/chills/headache/dysuria/myalgias/malaise/night sweats/loss of taste or smell. She did have some dizziness upon standing for the last few days. Otherwise, no complaints. Patient with past medical history significant for atrial fibrillation on rivaroxaban anticoagulation, diabetes, hypertension, hyperlipidemia, hypothyroidism and bioprosthetic aortic valve replacement. On arrival to the ER she was found to be afebrile, hemodynamically stable, mildly hypoxic at 89% on room air. Supplemental oxygen was placed in patient's saturations improved to 92% on 2 L. Patient denies recent travel or contact with COVID 19+ individuals. ER course: [facility] Admission Exam Per Admitting Provider General: patient resting comfortably, NAD, non-toxic in appearance, AA&O x3, hard of hearing Skin: warm, dry, intact, no rashes or lesions HEENT: NC/AT, PERRL, EOMI, anicteric sclera, conjunctiva without injection, external ear normal to inspection and nontender, nares patent, slightly dry mucus membranes, dentition intact, no oropharyngeal lesions, neck supple, trachea midline, no LAD, no thyromegaly, no JVD Heart: +S1/S2, irregularly irregular, 3/6 systolic ejection murmur at right second intercostal space Lungs: equal air entry bilaterally, faint crackles at the bases bilaterally, left greater than right Abd: +BS, soft, NT/ND, no masses/organomegaly/ascites Ext: warm, 2+ pulses in UE/LE bilaterally, no clubbing/cyanosis, trace pitting edema bilaterally Neuro: nonfocal, patient AA&O x 3, speech intact, no facial droop, moving all extremities on command with equal strength 5/5 Principal Diagnosis Nausea and Vomiting, Pneumonia Discharge Exam Constitutional well developed and well nourished; no acute distress and not ill appearing Eyes PERRL, conjunctivae normal, anicteric sclerae Respiratory normal respiratory effort; no respiratory distress Auscultation: + crackles (slight crackles in right lung base ); no diminished lung sounds Cardiovascular Rate/Rhythm: + irregularly irregular Heart Sounds: + click (aortic valve replacement) Vessels: no JVD Gastrointestinal (Abdomen) normal bowel sounds, soft, nontender, no hepatosplenomegaly Musculoskeletal no cyanosis or clubbing, extremities motor strength 5/5 Skin no rashes, warm and dry Psychiatric A+Ox3, euthymic affect Discharge Data Allergies Allergy/AdvReac Type Severity Reaction Status Date / Time oxycodone Allergy Intermediate HIVES Verified 04/22/20 20:15 propoxyphene Allergy Intermediate RASH Verified 04/22/20 20:15 lisinopril Allergy Unknown patient Verified 04/22/20 20:15 does not remember Consultations 04/22/20 20:42 ED Decision to Admit Stat Ordered Studies 04/22/20 19:10 CT abd pelvis IV con only Stat CT head/brain wo con Stat 04/23/20 09:00 US liver DAILY Hospital Course (1) Nausea & vomiting: Patient is a 84 year old female with PMHx Afib, Cardiac PM, HLD, Hypothyroidism, TDM2, HTN, CAD, who presented with 1 day history of non-billious non-bloody vomiting and dizziness upon standing, found to have ground glass opacities and concern for infiltrates in her lung bases bilateral on ab/pelv CTA. Nausea and Vomiting -Abdomen Pelv/CT noting stones in the gallbladder, no distention or wall thickening and a cirrhotic liver. -US Abdomen again showed stones in the gallbladder without signs of acute cholecystitis -Given a 500ml fluid bolus, Zofran, and IV Zosyn in the ED -Surgery consulted - patient not in acute cholecystitis, surgery was not recommended -Patients nausea and vomiting had resolved by the following day after admission and was eating breakfast without complaint. Pneumonia -Abdominal Ct showed concerns for ground glass opacities and infiltrate in patients lungs b/l -Started on IV Zosyn in the ED and was transitioned to IV Azithromycin and CTX -Also was provided with supplemental oxygen due to slight hypoxemia which patient titrated off of well prior to discharge -Patient was discharged with 3 days of Azithromycin to complete course. Dizziness -Likely secondary to orthostatic hypotension -Resolved upon fluid repletion Hypothyroidism -Continued patients home levothyroxine CAD/HTN -Continued home metoprolol, pravastatin, amlodipine -Continued patients home Lasix, but discussed with patient that she should revisit this with her PCP after discharge as she was unsure of why she was taking it. Afib -Continued metoprolol and Xarelto DMII -SSI while inpatient -Held metformin -Patient to hold metformin until 04/26/20 due to IV contrast utilization for CT scans (2) Pneumonia: (3) Respiratory failure with hypoxia: (4) CAD (coronary artery disease): (5) H/O aortic valve replacement: (6) Hypertension: (7) Atrial fibrillation with normal ventricular rate: (8) Hyperlipidemia: (9) Hypothyroidism: (10) Type 2 diabetes mellitus treated with insulin: Total Time Total Time Spent Total Time Spent (In Minutes): see attending attestation Discharge Plan Discharge Items Patient Disposition: Home - Self-Care Reason For Visit: NAUSEA / VOMITING, PNA Discharge Diagnosis: Nausea and Vomiting, Community Acquired Pneumonia Condition on Discharge: Good Activity: Resume your previous activity Non-emergency contact: Primary Care Provider Call non-emergency contact if: you have any medication questions and your symptoms worsen Follow-up/Referrals: Nu Castro MD [Primary Care Provider] - 04/27/20 10:20 am Diet: Regular Addtl Attending Provider Instructions: Alvarado, It was our pleasure caring for you at [facility] from 04/22/20 to 04/23/20 for your nausea, vomiting, and concern for pneumonia. Please see below for a summary of your care: Nausea and Vomiting -You arrived with concerns of nausea and vomiting. -In the ED you were given Intravenous fluids which improved your status. -You also had a CAT scan of your abdomen and pelvis which showed some stones in your gallbladder, but no current gallbladder infection -Surgery was consulted and they believed that you did not require surgery at this time. Pneumonia -You had increased need for oxygen while inpatient -This has been weaned off entirely by the time of your discharge -There was concern for pneumonia and you were treated with Azithromycin and Ceftriaxone IV (IV antibiotics) -We are discharging you with oral antibiotics for the next 3 days -Azithromycin 250mg by mouth daily for 3 days Please continue your home medications as prescribed otherwise noted below. Please follow up with your PCP in the next 2-3 days. Pending Studies at Discharge: No Stand-Alone Forms: My [facility], Smoking Cessation Medications and DC Order Prescriptions: New azithromycin 250 mg tablet 250 mg PO DAILY 3 Days Qty: 3 RF: 0 Continued levothyroxine 125 mcg tablet 125 mcg PO DAILY Qty: 90 RF: 11 (DME) pen needle, diabetic [BD Ultra-Fine Short Pen Needle] 31 gauge x 5/16" needle See Dose Instructions .ROUTE .MEDSUPPLY Qty: 100 RF: 1 metoprolol succinate 100 mg tablet extended release 24 hr 100 mg PO DAILY Qty: 90 RF: 3 (DME) lancing device with lancets [Accu-Chek FastClix Lancing Dev] Kit See Rx Instructions .ROUTE .MEDSUPPLY Qty: 1 RF: 0 furosemide 40 mg tablet 40 mg PO DAILY Qty: 30 RF: 5 Xarelto 15 mg tablet 15 mg PO DAILY Qty: 90 RF: 1 (DME) FreeStyle Shannan 14 Day Sensor Kit See Rx Instructions .ROUTE .MEDSUPPLY Qty: 1 RF: 0 (DME) FreeStyle Shannan 14 Day Ferrum Misc See Rx Instructions .ROUTE .MEDSUPPLY Qty: 1 RF: 0 amlodipine 5 mg tablet 5 mg PO BID Qty: 180 RF: 1 metformin 1,000 mg tablet 1,000 mg PO BID Qty: 180 RF: 1 ascorbic acid (vitamin C) 100 mg tablet 100 mg PO DAILY RF: 0 cholecalciferol (vitamin D3) 25 mcg (1,000 unit) tablet 25 mcg PO DAILY RF: 0 calcium carbonate-vitamin D3 [Calcium 600 + D(3)] 600 mg(1,500mg) -200 unit Tablet 1 tab PO DAILY RF: 0 pravastatin 40 mg tablet 40 mg PO QPM RF: 0 Basaglar KwikPen U-100 Insulin 100 unit/mL (3 mL) insulin pen 30 units SQ QAM RF: 0 [id number] Tablet 1 tab PO DAILY RF: 0 Discharge Orders: Discharge Order (Routine); Ordered 04/23/20 Ordered By: Feliciano Quintana/Other Patient Handouts: High Blood Sugar (Hyperglycemia), Hypoglycemia (Low Blood Sugar), Managing Type 2 Diabetes Admission Data Admit Date/Time: 04/22/20 22:53 Attending Provider: Raghav Ratliff Admit Provider: Chiqui Weaver Primary Care Provider: Nu Castro Other Providers: Chiqui Weaver Other Interventions: Discharge Summary Assessment (RN) Last Done: 04/23/20 12:17 Supervising Physician Co-Signing Physician Notes Attending attestation Pt seen and examined in concert with Dr. Cornell. In agreement with the documented findings as noted in the resident documentation with any exceptions or additions as noted here. 84 y/o female h/o DMII, HLD, hypothyroidism, AF p/w N/V and pneumonia Pneumonia, community acquired - complete course of azithromycin - follow up BCx in house and notify patient with any abnormalities Nausea/Vomiting - resolved - cholelithiasis without cholecystitis with surgical consultation without need for immediate intervention - encourage PO hydration, monitor and follow up for further care Else see resident documentation as noted. Resident Activity Tracking Resident Involvement: Resident Care Provided Care Provided: Adult Hospital Medicine
--- NOTE | 2020-04-23 12:40 | Electrocardiogram Report ---
Test Reason : Blood Pressure : / mmHG Vent. Rate : 078 BPM Atrial Rate : 078 BPM P-R Int : 000 ms QRS Dur : 142 ms QT Int : 402 ms P-R-T Axes : 000 -38 069 degrees QTc Int : 458 ms Atrial fibrillation with frequent ventricular-paced complexes Left axis deviation Non-specific intra-ventricular conduction block Abnormal ECG When compared with ECG of 05-JUN-2014 06:17, Electronic ventricular pacemaker has replaced Atrial fibrillation Confirmed by Madhu Weldon ([id number]) on 04/23/2020 12:40:41 PM Referred By: Nu Castro Confirmed By:Edu Weldon
[2020-04-23] MEDS ORDERED: RIVAROXABAN 15 MG TAB PO SCH (16:30)
[2020-04-23] MEDS ORDERED: PRAVASTATIN SOD 40 MG TAB PO SCH (21:00)
[2020-04-24] MEDS ORDERED: AZITHROMYCIN 250 MG in DEXTROSE 5% 250 ML IV SCH (08:00)
== END 2020-04-23 13:33 | disposition home or self-care (01) ==
LOC: ED 18:50 → 3W 18:50 → SUATTDRO 22:53 → 3W 23:56

== ENCOUNTER 2021-04-01 12:39 | Inpatient (IN) ==
[2021-04-01 14:55] LABS: Basophils # (auto) 0.01 K/uL (0-0.2); Basophils % (auto) 0.1 %; Eosinophils # (auto) 0.01 K/uL (0-0.5); Eosinophils % (auto) 0.1 %; Hematocrit (blood only) 40.7 % (37-47); Hemoglobin 14.4 g/dL (12.0-16.0); Immature Granulocytes # (auto) 0.04 K/uL (0.00-0.02); Immature Granulocytes % (auto) 0.3 %; Lymphocytes # (auto) 1.64 K/uL (1.2-3.4); Lymphocytes % (auto) 11.1 %; Mean Corpuscular Hemoglobin 31.6 pg (25-34); Mean Corpuscular Hgb Conc 35.4 g/dL (32-36); Mean Corpuscular Volume 89.3 fL (80-100); Mean Platelet Volume 10.4 fL (7.4-10.4); Monocytes # (auto) 0.95 K/uL (0.11-0.59); Monocytes % (auto) 6.4 %; Neutrophils # (auto) 12.12 K/uL (1.4-6.5); Platelet Count 162 K/uL (130-400); RDW Coefficient of Variation 13.9 % (11.5-14.5); RDW Standard Deviation 45.4 fL (36.4-46.3); Red Blood Count 4.56 M/uL (4.2-5.4); White Blood Count 14.77 K/uL (4.8-10.8)
[2021-04-01 15:02] LABS: Alanine Aminotransferase 21 U/L (12-78); Albumin Level 4.1 gm/dl (3.4-5.0); Aspartate Aminotransferase 32 U/L (15-37); BUN Creatinine Ratio 15.5 (10-20); Blood Urea Nitrogen 31 mg/dl (7-18); Calcium 10.6 mg/dl (8.5-10.1); Carbon Dioxide 31 mmol/L (21-32); Chloride 85 mmol/L (98-107); Est GFR (Non-African American) 22.5 ml/min; Glucose 168 mg/dl (70-99); Magnesium 2.2 mg/dl (1.8-2.4); Potassium 3.8 mmol/L (3.5-5.1); Sodium 125 mmol/L (136-145)
[2021-04-01 15:13] LABS: Albumin Globulin Ratio 1.1 (0.9-2); Alkaline Phosphatase 79 U/L (45-117); Bilirubin,Total 1.9 mg/dl (0.2-1); Creatine Kinase 391 U/L (26-192); Globulin 3.8 gm/dl (2.5-4.0); Total Protein 7.9 gm/dl (6.4-8.2); Troponin I < 0.015 ng/ml (0-0.045)
[2021-04-01 15:14] LABS: Appearance Urine Cloudy (Clear); Bacteria Urine Automated 2+ (Negative); Bilirubin Urine Negative (Negative); Blood Urine Trace (Negative); Color Urine Yellow; Glucose Urine UA Negative (Negative); Ketones Urine Negative (Negative); Leukocyte Esterase Urine 3+ (Negative); Nitrite Urine Negative (Negative); Protein Urine Negative (Negative); RBC Urine Automated 0-4 /hpf (0-4); Specific Gravity Urine 1.007 (1.000-1.030); Urobilinogen Urine Negative (Negative); WBC Urine Automated >30 /hpf (0-5)
--- NOTE | 2021-04-01 15:17 | XRay Report ---
XR chest 1V portable HISTORY: weakness COMPARISON: Chest 05/21/2020. FINDINGS: No pneumothorax. No pleural effusions. The heart is moderately enlarged. This remains uncha nged. There is a tortuous thoracic aorta. Poststernotomy changes and an aortic valve prosthesis are a gain noted. No new focal lung consolidations to suggest pneumonia. No evidence for pulmonary edema. I s left-sided dual-chamber pacemaker. IMPRESSION: No significant change compared to the prior study. No acute process. Stable cardiomegaly. ACT 112: Negative or not required by law. Electronically signed by: Jarred Quintanilla M.D. 04/01/2021 3:15 PM
[2021-04-01] MEDS ORDERED: SODIUM CHLORIDE 0.9% 1000ML 1,000 ML IV STA (15:19)
--- NOTE | 2021-04-01 15:27 | Emergency Department Note ---
Impression & Plan Acute hyponatremia, MARJ (acute kidney injury), Weakness, Falls ED Provider Note INFORMANT: Patient ED PROVIDER(S): Kevin Madrigal MD CHIEF COMPLAINT: Falls PLAN: Disposition: Admitted Condition: Good Outpatient prescription management: none Referral: None MEDICAL DECISION MAKING: Patient presented because of weakness and falls. She has recently had her diuretic increased. Blood work was obtained. ECG showed a paced rhythm. Chest x-ray showed cardiomegaly without myra failure. She had stable vital signs. The patient did not seem to suffer any significant injury from her fall. Blood work revealed that she had MARJ and hyponatremia present. She also had a slight leukocytosis. Urinalysis was ordered. Head CT imaging performed. [facility] The patient was evaluated in the ER admitted for further management. Triage Nursing notes reviewed and agree them. Vital Signs: reviewed and remarkable for no significant abnormalities Differential diagnosis: Infection, dehydration, metabolic abnormality, hypo/hyperglycemia, electrolyte disturbance, anemia, hypoxia, cardiac sources, intracerebral event, toxicologic, neurologic, as well as other pathologies. Diagnostics interpreted by me: ECG: Twelve-lead ECG reveals a ventricular paced rhythm at 70 bpm. Poor baseline data present. No ST elevation. No PVCs. Cardiac Monitoring: Cardiac monitoring ordered by me: The patient was placed on continuous cardiac monitoring and observed. It revealed a paced rhythm at 86 bpm. No dysrhythmia. Imaging studies: Chest x-ray performed and revealed significant cardiomegaly. No myra failure or infiltrate. There is pacemaker present. HPI: The patient is a 85-year-old female who presents to the Emergency Room with complaints of multiple falls. This started yesterday and today and is associated with weakness. The patient also notes the following associated symptoms, fatigue and poor appetite. Patient recently was seen by cardiology and had her diuretic increased. She thinks she may have taken an extra dose. Daughter notes she has been generally weak and not eating well. Patient had 2 falls but denies any significant injury. The patient has found no relieving factors. Current pain is rated as 0/10. Pt denies LOC, headache, fevers, chills, diaphoresis, visual changes, neck pain, chest pain, breathing dif ficulties, nausea, vomiting, abdominal pain, back pain, melena, hematochezia, urinary symptoms, numbness, lymphadenopathy, rash, or other complaints. ROS: See above HPI for pertinent positives & negatives. A total of 10 systems reviewed and were otherwise negative. PAST MEDICAL HISTORY:See Below , CHF hypertension PAST SURGICAL HISTORY:See Below, pacemaker FAMILY HISTORY:See Below SOCIAL HISTORY:See Below, retired HOME MEDICATIONS:See Below ALLERGIES:See Below VITALS:See Below PHYSICAL EXAMINATION: GENERAL: Awake, alert, tired-appearing, in no distress HENT: Normocephalic, atraumatic. Oropharynx unremarkable. EYES: Normal conjunctiva. Sclera non-icteric. NECK: Inspection normal. Non-tender. Supple. No nuchal rigidity. FROM. No masses. RESPIRATORY: Clear to auscultation. No wheezes. No rales. Normal respiratory effort. CARDIAC: Normal rate. Normal rhythm. Positive S4. Systolic murmur present. No rubs. Extremities warm and well perfused. Pulses equal. No JVD. GI: Soft, non-distended. No tenderness to palpation. No rebound or guarding. No masses. RECTAL: Deferred. MUSCULOSKELETAL: Atraumatic except for scattered old appearing bruises which patient states were there prior to the falls. Chest examination reveals no tenderness. The back is symmetrical on inspection without obvious abnormality. There is no CVA tenderness to palpation. No joint edema. LOWER EXTREMITIES: Calves are equal size bilaterally and non-tender. Trace edema. No discoloration. NEURO: Normal sensorium. No sensory or motor deficits noted. SKIN: No rash or jaundice noted. Kevin Madrigal MD Past Med/Surg History Medical History Atrial fibrillation with normal ventricular rate Cholelithiasis Diabetes DVT of lower extremity (deep venous thrombosis) History of cardioversion HX: breast cancer Hypertension Hypothyroidism Pneumonia Surgical History H/O aortic valve replacement History of hysterectomy Knee joint replacement status S/P breast lumpectomy S/P cardiac catheterization S/P rotator cuff repair S/P umbilical hernia repair, follow-up exam Family History Mother Myocardial infarction Cardiac disorder Brother Myocardial infarction Denies family history of Colon cancer Ovarian cancer Prostate cancer Breast cancer Social History Smoking Status: Never smoker Age Quit Using Tobacco: 31; Second Hand Exposure: No; Do You Dip or Chew Tobacco: No; Hx Alcohol Use: No Hx Substance Use: No Preferred Language: Georgian Communication Ability: Effective Visual Impairment: No Limitations Hearing Ability: Hard of Hearing Powerhouse Engineer Required: No Beliefs That Will Affect Care: None marital status: Single Current Living Situation: Alone Current Living Situation Comment: Home alone in a two story, only uses first level, daughter provides food current occupational status: retired Other Information That Helps Us Care for You: No Feels Safe at Home: Yes Safety Concerns: Feels Safe At This Time Childhood Exposure to Second-Hand Smoke: No Dental Care, Regularly: No Physical Activity Frequency: Does not Exercise Seatbelt Use: always Sunscreen Use: Yes Assistive Devices: Cane, Denture - Upper, Denture - Lower and Glasses Allergies Allergies Allergy/AdvReac Type Severity Reaction Status Date / Time oxycodone Allergy Intermediate HIVES Verified 04/01/21 13:41 propoxyphene Allergy Intermediate RASH Verified 04/01/21 13:41 lisinopril Allergy Unknown patient Verified 04/01/21 13:41 does not remember Home Meds Home Medications Medication Instructions Recorded Confirmed ascorbic acid (vitamin C) 100 mg 100 mg PO DAILY tab 06/10/19 04/01/21 tablet cholecalciferol (vitamin D3) 25 25 mcg PO DAILY tab 06/10/19 04/01/21 mcg (1,000 unit) tablet calcium carbonate 600 mg (1,500 1 tab PO DAILY 04/22/20 04/01/21 mg)-vitamin D3 200 unit tablet (Calcium 600 + D(3)) [id number] tablet 1 tab PO DAILY 04/22/20 04/01/21 Previous Rx's Medication Instructions Recorded flash glucose scanning reader #1 ea 02/15/20 (FreeStyle Shannan 14 Day [place]) flash glucose sensor (FreeStyle #1 ea 02/15/20 Shannan 14 Day Sensor) lancets (Accu-Chek Softclix #200 ea 06/02/20 Lancets) insulin glargine 100 unit/mL (3 30 unit SQ QAM #15 ml 07/06/20 mL) subcutaneous pen (Basaglar KwikPen U-100 Insulin) rivaroxaban 15 mg tablet (Xarelto) 15 mg PO DAILY #90 tab 08/05/20 amlodipine 5 mg tablet 5 mg PO BID #180 tab 09/15/20 levothyroxine 125 mcg tablet 125 mcg PO DAILY #90 tab 11/15/20 pen needle, diabetic 31 gauge x #100 ea 12/28/2012/26" (BD Ultra-Fine Short Pen Needle) metformin 1,000 mg tablet 1,000 mg PO BID #180 tab 01/12/21 furosemide 40 mg tablet 40 mg PO DAILY #90 tab 01/26/21 metoprolol succinate 100 mg 100 mg PO DAILY #90 tab 02/11/21 tablet,extended release 24 hr pravastatin 40 mg tablet 40 mg PO QPM #90 tab 03/13/21 metolazone 2.5 mg tablet 2.5 mg PO DAILY #15 tab 03/29/21 Results & Data (ED) Vital Signs Vital Signs - 24 hr 04/01/21 12:42 04/01/21 13:20 04/01/21 14:48 Temperature 36.8 C Temperature Source Oral Pulse Rate 64 Pulse Rate [Apical] 93 H Pulse Rhythm [Apical] Regular Respiratory Rate 18 22 Respiratory Effort / Characteristics Non-Labored Spontaneous Non-Labored Respiratory Depth Normal Normal Blood Pressure 125/62 Blood Pressure [Right Arm] 155/96 H Blood Pressure Mean 83 Blood Pressure Mean [Right Arm] 115 Pulse Oximetry 95 96 92 Oxygen Delivery Method Room Air Room Air Room Air Sepsis Recent Fever Within 48 Hours No Sepsis New/Unexplained Change in Mental Status No Sepsis Action Taken by Nursing No Action Required 04/01/21 15:07 Temperature Temperature Source Pulse Rate Pulse Rate [Apical] 86 Pulse Rhythm [Apical] Regular Respiratory Rate 16 Respiratory Effort / Characteristics Non-Labored Respiratory Depth Normal Blood Pressure Blood Pressure [Right Arm] Blood Pressure Mean Blood Pressure Mean [Right Arm] Pulse Oximetry 93 Oxygen Delivery Method Room Air Sepsis Recent Fever Within 48 Hours Sepsis New/Unexplained Change in Mental Status Sepsis Action Taken by Nursing Laboratory Data Result diagrams: 04/01/21 13:30 04/01/21 13:30 Lab Results 04/01/21 04/01/21 04/01/21 Range/Units 13:30 13:30 15:00 WBC 14.77 H (4.8-10.8) K/uL RBC 4.56 (4.2-5.4) M/uL Hgb 14.4 (12.0-16.0) g/dL Hct 40.7 (37-47) % MCV 89.3 (80-100) fL MCH 31.6 (25-34) pg MCHC 35.4 (32-36) g/dL RDW Std Deviation 45.4 (36.4-46.3) fL RDW Coeff of Patti 13.9 (11.5-14.5) % Plt Count 162 (130-400) K/uL MPV 10.4 (7.4-10.4) fL Immature Gran % (Auto) 0.3 % Neut % (Auto) 82.0 % Lymph % (Auto) 11.1 % Love % (Auto) 6.4 % Eos % (Auto) 0.1 % Baso % (Auto) 0.1 % Neut # (Auto) 12.12 H (1.4-6.5) K/uL Lymph # (Auto) 1.64 (1.2-3.4) K/uL Love # (Auto) 0.95 H (0.11-0.59) K/uL Eos # (Auto) 0.01 (0-0.5) K/uL Baso # (Auto) 0.01 (0-0.2) K/uL Immature Gran # (Auto) 0.04 H (0.00-0.02) K/uL Sodium 125 L (136-145) mmol/L Potassium 3.8 (3.5-5.1) mmol/L Chloride 85 L (98-107) mmol/L Carbon Dioxide 31 (21-32) mmol/L Anion Gap 9.0 (3-11) BUN 31 H (7-18) mg/dl Creatinine 1.98 H (0.6-1.2) mg/dl Est Cr Clr Drug Dosing Not Reportable Est GFR ( Amer) 26.0 ml/min Est GFR (Non-Af Amer) 22.5 ml/min BUN/Creatinine Ratio 15.5 (10-20) Glucose 168 H (70-99) mg/dl Calcium 10.6 H (8.5-10.1) mg/dl Magnesium 2.2 (1.8-2.4) mg/dl Total Bilirubin 1.9 H (0.2-1) mg/dl AST 32 (15-37) U/L ALT 21 (12-78) U/L Alkaline Phosphatase 79 (45-117) U/L Total Creatine Kinase 391 H (26-192) U/L Troponin I < 0.015 (0-0.045) ng/ml Total Protein 7.9 (6.4-8.2) gm/dl Albumin 4.1 (3.4-5.0) gm/dl Globulin 3.8 (2.5-4.0) gm/dl Albumin/Globulin Ratio 1.1 (0.9-2) TSH 2.520 (0.300-4.500) uIu/ml Urine Color Yellow Urine Appearance Cloudy A (Clear) Urine pH 6.0 (4.5-7.5) Ur Specific [place] 1.007 (1.000-1.030) Urine Protein Negative (Negative) Urine Glucose (UA) Negative (Negative) Urine Ketones Negative (Negative) Urine Blood Trace H (Negative) Urine Nitrite Negative (Negative) Urine Bilirubin Negative (Negative) Urine Urobilinogen Negative (Negative) Ur Leukocyte Esterase 3+ H (Negative) Urine WBC (Auto) >30 H (0-5) /hpf Urine RBC (Auto) 0-4 (0-4) /hpf U Hyaline Cast (Auto) 1-5 (0-5) /lpf U Epithel Cells (Auto) 5-10 H (0-5) /lpf Urine Bacteria (Auto) 2+ H (Negative) Urine Yeast Not Reportable COVID-19 Eval Order SARS-CoV-2 (PCR) (Negative) 04/01/21 04/01/21 Range/Units 15:30 15:30 WBC (4.8-10.8) K/uL RBC (4.2-5.4) M/uL Hgb (12.0-16.0) g/dL Hct (37-47) % MCV (80-100) fL MCH (25-34) pg MCHC (32-36) g/dL RDW Std Deviation (36.4-46.3) fL RDW Coeff of Patti (11.5-14.5) % Plt Count (130-400) K/uL MPV (7.4-10.4) fL Immature Gran % (Auto) % Neut % (Auto) % Lymph % (Auto) % Love % (Auto) % Eos % (Auto) % Baso % (Auto) % Neut # (Auto) (1.4-6.5) K/uL Lymph # (Auto) (1.2-3.4) K/uL Love # (Auto) (0.11-0.59) K/uL Eos # (Auto) (0-0.5) K/uL Baso # (Auto) (0-0.2) K/uL Immature Gran # (Auto) (0.00-0.02) K/uL Sodium (136-145) mmol/L Potassium (3.5-5.1) mmol/L Chloride (98-107) mmol/L Carbon Dioxide (21-32) mmol/L Anion Gap (3-11) BUN (7-18) mg/dl Creatinine (0.6-1.2) mg/dl Est Cr Clr Drug Dosing Est GFR ( Amer) ml/min Est GFR (Non-Af Amer) ml/min BUN/Creatinine Ratio (10-20) Glucose (70-99) mg/dl Calcium (8.5-10.1) mg/dl Magnesium (1.8-2.4) mg/dl Total Bilirubin (0.2-1) mg/dl AST (15-37) U/L ALT (12-78) U/L Alkaline Phosphatase (45-117) U/L Total Creatine Kinase (26-192) U/L Troponin I (0-0.045) ng/ml Total Protein (6.4-8.2) gm/dl Albumin (3.4-5.0) gm/dl Globulin (2.5-4.0) gm/dl Albumin/Globulin Ratio (0.9-2) TSH (0.300-4.500) uIu/ml Urine Color Urine Appearance (Clear) Urine pH (4.5-7.5) Ur Specific [place] (1.000-1.030) Urine Protein (Negative) Urine Glucose (UA) (Negative) Urine Ketones (Negative) Urine Blood (Negative) Urine Nitrite (Negative) Urine Bilirubin (Negative) Urine Urobilinogen (Negative) Ur Leukocyte Esterase (Negative) Urine WBC (Auto) (0-5) /hpf Urine RBC (Auto) (0-4) /hpf U Hyaline Cast (Auto) (0-5) /lpf U Epithel Cells (Auto) (0-5) /lpf Urine Bacteria (Auto) (Negative) Urine Yeast COVID-19 Eval Order Covid19 at [facility] SARS-CoV-2 (PCR) NEGATIVE (Negative) Administered Medications Amlodipine Besylate (Amlodipine Besylate 5 Mg Tab) 5 mg PO BID SUNITA Stop: 05/01/21 20:59 Last Admin: 04/01/21 21:09 Dose: 5 mg Documented by: [id number] Sodium Chloride (Nss 1000ml) 1,000 mls @ 50 mls/hr IV .Q20H STA Stop: 04/02/21 11:18 Last Infusion: 04/01/21 19:24 Dose: 50 mls/hr Documented by: [id number] Admin: 04/01/21 15:22 Dose: 50 mls/hr Documented by: [id number] Insulin Aspart (Insulin Aspart 100 Units/Ml 3 Ml Pen) 0 units SC ACHS SUNITA Stop: 05/01/21 18:58 Last Admin: 04/01/21 21:16 Dose: Not Given Documented by: [id number] Admin: 04/01/21 21:09 Dose: 3 units Documented by: [id number] Cosigned by: [id number] Insulin Glargine (Insulin Glargine Solostar 100 Units/Ml 3 Ml Pen) 12 units SC BID SUNITA Stop: 05/01/21 20:59 Last Admin: 04/01/21 21:09 Dose: 12 units Documented by: [id number] Cosigned by: [id number] Pravastatin Sodium (Pravastatin Sod 40 Mg Tab) 40 mg PO QPM SUNITA Stop: 05/01/21 20:59 Last Admin: 04/01/21 21:09 Dose: 40 mg Documented by: [id number] Discontinued Medications Enoxaparin Sodium (Enoxaparin Inj 40 Mg/0.4 Ml Syr) 40 mg SQ Q24H SUNITA Stop: 05/01/21 18:58 Last Admin: 04/01/21 20:48 Dose: Not Given Documented by: [id number] Imaging Data Radiologist's Impression: Chest X-Ray 04/01/21 14:46 XR chest 1V portable HISTORY: weakness COMPARISON: Chest 05/21/2020. FINDINGS: No pneumothorax. No pleural effusions. The heart is moderately enlarged. This remains unchanged. There is a tortuous thoracic aorta. Poststernotomy changes and an aortic valve prosthesis are again noted. No new focal lung consolidations to suggest pneumonia. No evidence for pulmonary edema. Is left-sided dual-chamber pacemaker. IMPRESSION: No significant change compared to the prior study. No acute process. Stable cardiomegaly. ACT 112: Negative or not required by law. Electronically signed by: Jarred Quintanilla M.D. 04/01/2021 3:[address] 04/01/21 14:46 CT SCAN OF THE BRAIN WITHOUT IV CONTRAST CLINICAL HISTORY: Fall. COMPARISON STUDY: CT of the brain dated 04/22/2020. TECHNIQUE: Unenhanced axial CT scan of the brain is performed from the vertex to the skull base. A dose lowering technique was utilized adhering to the principles of ALARA. CT DOSE: 537.48 mGy.cm FINDINGS: Brain parenchyma: There are age-related involutional changes noting moderate to advanced subcortical and periventricular microangiopathic change. There is no hemorrhage, mass effect, or evidence of acute territorial ischemia by CT criteri a. Grace-white matter differentiation is preserved. No extra-axial fluid collection is identified. 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 Mineralization is noted in the basal ganglia. Ventricles, sulci, cisterns: Prominent secondary to involutional change. Intracranial vasculature: There is atherosclerotic calcification of the cavernous carotid and vertebral arteries. Calvarium: The skeletal structures are osteopenic. There is no depressed calvarial fracture. Sinuses and mastoids: The visualized paranasal sinuses are clear. The mastoid air cells are well pneumatized. Orbits: The bony orbits are grossly intact. There are bilateral ocular lens implants. IMPRESSION: There is no hemorrhage, mass effect, or evidence of acute territorial ischemia by CT criteria. ACT 112: Negative or not required by law. Electronically signed by: Rober Tovar M.D. 04/01/2021 3:43 PM Discharge Plan Visit Data Chief Complaint: Fall Stated Complaint: fall ED Provider: Kevin Madrigal Discharge Problem: Acute hyponatremia, MARJ (acute kidney injury), Weakness, Falls Patient Disposition: Admitted As Inpatient Discharge Instructions Interventions: ED Discharge Assessment Last Done: 04/01/21 18:17
--- NOTE | 2021-04-01 15:44 | CT Scan Report ---
CT SCAN OF THE BRAIN WITHOUT IV CONTRAST CLINICAL HISTORY: Fall. COMPARISON STUDY: CT of the brain dated 04/22/2020. TECHNIQUE: Unenhanced axial CT scan of the brain is performed from the vertex to the skull base. A do se lowering technique was utilized adhering to the principles of ALARA. CT DOSE: 537.48 mGy.cm FINDINGS: Brain parenchyma: There are age-related involutional changes noting moderate to advanced subcortical and periventricular microangiopathic change. There is no hemorrhage, mass effect, or evidence of acu te territorial ischemia by CT criteria. Grace-white matter differentiation is preserved. No extra-axia l fluid collection is identified. A chronic lacunar infarct is seen in the right cerebellar hemispher e. Mineralization is noted in the basal ganglia. Ventricles, sulci, cisterns: Prominent secondary to involutional change. Intracranial vasculature: There is atherosclerotic calcification of the cavernous carotid and vertebr al arteries. Calvarium: The skeletal structures are osteopenic. There is no depressed calvarial fracture. Sinuses and mastoids: The visualized paranasal sinuses are clear. The mastoid air cells are well pneu matized. Orbits: The bony orbits are grossly intact. There are bilateral ocular lens implants. IMPRESSION: There is no hemorrhage, mass effect, or evidence of acute territorial ischemia by CT kristina vanegas. ACT 112: Negative or not required by law. Electronically signed by: Rober Tovar M.D. 04/01/2021 3:43 PM
--- NOTE | 2021-04-01 16:09 | History & Physical Report ---
Date of Service April 01, 2021 Assessment & Plan (1) Acute hyponatremia: Plan: Lw=110 from previously normal value of 139 on 08/23/20. Most likely secondary to increased diuretic use. Patient given IVF in ER -Repeat chemistry -Hold diuretics -Continue NSS at 80mL/hr x 1 liter (2) MARJ (acute kidney injury): Plan: Elevation of BUN and Cr from baseline. Possibly secondary to increased diuretic use. Mild elevation of CK. Patient is urinating without difficulty. Hyponatremia as above, K is normal at 3.8 -IVF as above -Monitor BUN, Cr, electrolytes and UOP -Avoid nephrotoxic agents -Renal dosing where needed (3) Weakness: Plan: Most likely secondary to acute hyponatremia and MARJ as above -Plan as discussed -PT evaluation appreciated -Fall precautions (4) CAD (coronary artery disease): Plan: Chronic. Stable. No complaint of CP or exertional symptoms -Continue Metoprolol -Continue Pravastatin (5) Hypertension: Plan: Blood pressure stable -Continue Metoprolol and Amlodipine -Continue to monitor (6) Atrial fibrillation with normal ventricular rate: Plan: Rate controlled -Continue Metoprolol -Continue Xarelto -Continue to monitor (7) Hyperlipidemia: Plan: Chronic. Stable -Continue Pravastatin (8) Hypothyroidism: Plan: Chronic. -Continue Synthroid (9) Type 2 diabetes mellitus treated with insulin: Plan: Chronic. Blood sugar = 168 on arrival. A1C of 5.5 in August 2020 - has been below 6 since 2018 per our records. [place] on 30u glargine q AM and Metformin outpatient -Hold oral agents -Lantus 12u BID with ISS -Goal blood sugar 100 - 140 -Patient may benefit from deescalation of therapy outpatient - AIC of 5.5, 85yo Plan: F/E/N - NSS at 80mL/hr, monitor Na, CC, AHA diet as tolerated Ppx - On Xarelto, will continue as above Code - Full per discussion with patient Dispo - Admit to Medical History of Present Illness Chief Complaint: weakness, fatitue Primary Care Provider: Nu Castro MD Temi Carter is an 85yo female with history of Aortic stenosis s/p bioprosthetic AVR, AF on anticoagulation, DM, HTN, Hypothyroid and CAD. She was seen in Cardiology clinic on 03/29 with complaitn of SOB. She had an echo performed which was unremarkable. She was suspected to have pulmonary vascular congestion and was instructed to take Lasix 80mg daily + Metolazone. She has been taking those medications since yesterday. She presents today with weakness, fatigue and difficulty with ambulation. She fell last night and was unable to get up due to weakness and she fell again this AM. Her breathing has improved. She denies chest pain, abdominal pain, nausea, vomiting, constipation. She does have a headache and her daughter states that her speech is more "thick tongued" than normal. No additional complaints. ER Course: NSS x 1 L Allergies Allergy/AdvReac Type Severity Reaction Status Date / Time oxycodone Allergy Intermediate HIVES Verified 04/01/21 13:41 propoxyphene Allergy Intermediate RASH Verified 04/01/21 13:41 lisinopril Allergy Unknown patient Verified 04/01/21 13:41 does not remember Home Medications Medication Instructions Recorded Confirmed Type ascorbic acid (vitamin C) 100 mg 100 mg PO DAILY tab 06/10/19 04/01/21 History tablet cholecalciferol (vitamin D3) 25 25 mcg PO DAILY tab 06/10/19 04/01/21 History mcg (1,000 unit) tablet flash glucose scanning reader #1 ea 02/15/20 03/29/21 Rx (FreeStyle Shannan 14 Day Trimble) flash glucose sensor (FreeStyle #1 ea 02/15/20 03/29/21 Rx Shannan 14 Day Sensor) calcium carbonate 600 mg (1,500 1 tab PO DAILY 04/22/20 04/01/21 History mg)-vitamin D3 200 unit tablet (Calcium 600 + D(3)) [id number]-[id number] tablet 1 tab PO DAILY 04/22/20 04/01/21 History lancets (Accu-Chek Softclix #200 ea 06/02/20 03/29/21 Rx Lancets) insulin glargine 100 unit/mL (3 30 unit SQ QAM #15 ml 07/06/20 04/01/21 Rx mL) subcutaneous pen (Basaglar KwikPen U-100 Insulin) rivaroxaban 15 mg tablet (Xarelto) 15 mg PO DAILY #90 tab 08/05/20 04/01/21 Rx amlodipine 5 mg tablet 5 mg PO BID #180 tab 09/15/20 04/01/21 Rx levothyroxine 125 mcg tablet 125 mcg PO DAILY #90 tab 11/15/20 04/01/21 Rx pen needle, diabetic 31 gauge x #100 ea 12/28/20 03/29/21 Rx 12/26" (BD Ultra-Fine Short Pen Needle) metformin 1,000 mg tablet 1,000 mg PO BID #180 tab 01/12/21 04/01/21 Rx furosemide 40 mg tablet 40 mg PO DAILY #90 tab 01/26/21 04/01/21 Rx metoprolol succinate 100 mg 100 mg PO DAILY #90 tab 02/11/21 04/01/21 Rx tablet,extended release 24 hr pravastatin 40 mg tablet 40 mg PO QPM #90 tab 03/13/21 04/01/21 Rx metolazone 2.5 mg tablet 2.5 mg PO DAILY #15 tab 03/29/21 04/01/21 Rx Past Med/Surg History Medical History Atrial fibrillation with normal ventricular rate Cholelithiasis Diabetes DVT of lower extremity (deep venous thrombosis) History of cardioversion HX: breast cancer Hypertension Hypothyroidism Pneumonia Surgical History H/O aortic valve replacement History of hysterectomy Knee joint replacement status S/P breast lumpectomy S/P cardiac catheterization S/P rotator cuff repair S/P umbilical hernia repair, follow-up exam Family History Mother Myocardial infarction Cardiac disorder Brother Myocardial infarction Denies family history of Colon cancer Ovarian cancer Prostate cancer Breast cancer Social History Smoking Status: Never smoker Age Quit Using Tobacco: 31; Second Hand Exposure: No; Do You Dip or Chew Tobacco: No; Hx Alcohol Use: No Hx Substance Use: No Preferred Language: Lao Communication Ability: Effective Visual Impairment: No Limitations Hearing Ability: Hard of Hearing Billboard Erector Helper Required: No Beliefs That Will Affect Care: None marital status: Single Current Living Situation: Alone Current Living Situation Comment: Home alone in a two story, only uses first level, daughter provides food current occupational status: retired Other Information That Helps Us Care for You: No Feels Safe at Home: Yes Safety Concerns: Feels Safe At This Time Childhood Exposure to Second-Hand Smoke: No Dental Care, Regularly: No Physical Activity Frequency: Does not Exercise Seatbelt Use: always Sunscreen Use: Yes Assistive Devices: Cane, Denture - Upper, Denture - Lower and Glasses Review of Systems Review of Systems: All systems reviewed & are unremarkable except as noted in HPI & below +ALVAREZ Physical Exam Physical Exam: General: patient resting comfortably, NAD, non-toxic in appearance, AA&O x 4 Skin: warm, dry, intact, no rashes or lesions HEENT: NC/AT, PERRL, EOMI, anicteric sclera, conjunctiva without injection, external ear normal to inspection and nontender, nares patent, dry mucus membranes, dentition intact, no oropharyngeal lesions, neck supple, trachea midline, no LAD, no thyromegaly, no JVD Heart: +S1/S2, irregularly irregular, no m/r/g Lungs: equal air entry bilaterally, no rales/rhonchi/wheezes Abd: +BS, soft, NT/ND, no masses/organomegaly/ascites Ext: warm, 2+ pulses in UE/LE bilaterally, no clubbing/cyanosis, trace edema Neuro: nonfocal, patient AA&O x 4, speech intact, no facial droop, moving all extremities on command with equal strength 5/5 Results & Data Results & Data ([facility]) Vital Signs (Past 12 Hours) Vital Signs Temp Pulse Pulse Resp BP BP Pulse Ox 04/01/21 15:07 86 16 93 04/01/21 14:48 92 04/01/21 13:20 93 H 22 155/96 H 96 04/01/21 12:42 36.8 C 64 18 125/62 95 Laboratory Results Lab Results 04/01/21 04/01/21 04/01/21 Range/Units 13:30 13:30 15:00 WBC 14.77 H (4.8-10.8) K/uL RBC 4.56 (4.2-5.4) M/uL Hgb 14.4 (12.0-16.0) g/dL Hct 40.7 (37-47) % MCV 89.3 (80-100) fL MCH 31.6 (25-34) pg MCHC 35.4 (32-36) g/dL RDW Std Deviation 45.4 (36.4-46.3) fL RDW Coeff of Patti 13.9 (11.5-14.5) % Plt Count 162 (130-400) K/uL MPV 10.4 (7.4-10.4) fL Immature Gran % (Auto) 0.3 % Neut % (Auto) 82.0 % Lymph % (Auto) 11.1 % Cross % (Auto) 6.4 % Eos % (Auto) 0.1 % Baso % (Auto) 0.1 % Neut # (Auto) 12.12 H (1.4-6.5) K/uL Lymph # (Auto) 1.64 (1.2-3.4) K/uL Cross # (Auto) 0.95 H (0.11-0.59) K/uL Eos # (Auto) 0.01 (0-0.5) K/uL Baso # (Auto) 0.01 (0-0.2) K/uL Immature Gran # (Auto) 0.04 H (0.00-0.02) K/uL Sodium 125 L (136-145) mmol/L Potassium 3.8 (3.5-5.1) mmol/L Chloride 85 L (98-107) mmol/L Carbon Dioxide 31 (21-32) mmol/L Anion Gap 9.0 (3-11) BUN 31 H (7-18) mg/dl Creatinine 1.98 H (0.6-1.2) mg/dl Est Cr Clr Drug Dosing Not Reportable Est GFR ( Amer) 26.0 ml/min Est GFR (Non-Af Amer) 22.5 ml/min BUN/Creatinine Ratio 15.5 (10-20) Glucose 168 H (70-99) mg/dl POC Glucose (70-99) mg/dl Calcium 10.6 H (8.5-10.1) mg/dl Magnesium 2.2 (1.8-2.4) mg/dl Total Bilirubin 1.9 H (0.2-1) mg/dl AST 32 (15-37) U/L ALT 21 (12-78) U/L Alkaline Phosphatase 79 (45-117) U/L Total Creatine Kinase 391 H (26-192) U/L Troponin I < 0.015 (0-0.045) ng/ml Total Protein 7.9 (6.4-8.2) gm/dl Albumin 4.1 (3.4-5.0) gm/dl Globulin 3.8 (2.5-4.0) gm/dl Albumin/Globulin Ratio 1.1 (0.9-2) TSH 2.520 (0.300-4.500) uIu/ml Urine Color Yellow Urine Appearance Cloudy A (Clear) Urine pH 6.0 (4.5-7.5) Ur Specific [place] 1.007 (1.000-1.030) Urine Protein Negative (Negative) Urine Glucose (UA) Negative (Negative) Urine Ketones Negative (Negative) Urine Blood Trace H (Negative) Urine Nitrite Negative (Negative) Urine Bilirubin Negative (Negative) Urine Urobilinogen Negative (Negative) Ur Leukocyte Esterase 3+ H (Negative) Urine WBC (Auto) >30 H (0-5) /hpf Urine RBC (Auto) 0-4 (0-4) /hpf U Hyaline Cast (Auto) 1-5 (0-5) /lpf U Epithel Cells (Auto) 5-10 H (0-5) /lpf Urine Bacteria (Auto) 2+ H (Negative) Urine Yeast Not Reportable COVID-19 Eval Order SARS-CoV-2 (PCR) (Negative) 04/01/21 04/01/21 04/01/21 Range/Units 15:30 15:30 21:03 WBC (4.8-10.8) K/uL RBC (4.2-5.4) M/uL Hgb (12.0-16.0) g/dL Hct (37-47) % MCV (80-100) fL MCH (25-34) pg MCHC (32-36) g/dL RDW Std Deviation (36.4-46.3) fL RDW Coeff of Patti (11.5-14.5) % Plt Count (130-400) K/uL MPV (7.4-10.4) fL Immature Gran % (Auto) % Neut % (Auto) % Lymph % (Auto) % Cross % (Auto) % Eos % (Auto) % Baso % (Auto) % Neut # (Auto) (1.4-6.5) K/uL Lymph # (Auto) (1.2-3.4) K/uL Cross # (Auto) (0.11-0.59) K/uL Eos # (Auto) (0-0.5) K/uL Baso # (Auto) (0-0.2) K/uL Immature Gran # (Auto) (0.00-0.02) K/uL Sodium (136-145) mmol/L Potassium (3.5-5.1) mmol/L Chloride (98-107) mmol/L Carbon Dioxide (21-32) mmol/L Anion Gap (3-11) BUN (7-18) mg/dl Creatinine (0.6-1.2) mg/dl Est Cr Clr Drug Dosing Est GFR ( Amer) ml/min Est GFR (Non-Af Amer) ml/min BUN/Creatinine Ratio (10-20) Glucose (70-99) mg/dl POC Glucose 187 H (70-99) mg/dl Calcium (8.5-10.1) mg/dl Magnesium (1.8-2.4) mg/dl Total Bilirubin (0.2-1) mg/dl AST (15-37) U/L ALT (12-78) U/L Alkaline Phosphatase (45-117) U/L Total Creatine Kinase (26-192) U/L Troponin I (0-0.045) ng/ml Total Protein (6.4-8.2) gm/dl Albumin (3.4-5.0) gm/dl Globulin (2.5-4.0) gm/dl Albumin/Globulin Ratio (0.9-2) TSH (0.300-4.500) uIu/ml Urine Color Urine Appearance (Clear) Urine pH (4.5-7.5) Ur Specific [place] (1.000-1.030) Urine Protein (Negative) Urine Glucose (UA) (Negative) Urine Ketones (Negative) Urine Blood (Negative) Urine Nitrite (Negative) Urine Bilirubin (Negative) Urine Urobilinogen (Negative) Ur Leukocyte Esterase (Negative) Urine WBC (Auto) (0-5) /hpf Urine RBC (Auto) (0-4) /hpf U Hyaline Cast (Auto) (0-5) /lpf U Epithel Cells (Auto) (0-5) /lpf Urine Bacteria (Auto) (Negative) Urine Yeast COVID-19 Eval Order Covid19 at [facility] SARS-CoV-2 (PCR) NEGATIVE (Negative) Code Status & VTE Plan VTE Prophylaxis Plan VTE Prophylaxis will be ordered: Yes PG Care Time/CCT Total # of Minutes Spent Total Time Spent with Patient: Total time spent is greater than 50% in coordination of care (as documented) at patient's floor/unit and/or counseling patient: Coding Level of Care Code 25332 Initial Inpt Care Lvl 3 Diagnoses Acute hyponatremia E87.1 MARJ (acute kidney injury) N17.9 Weakness R53.1 CAD (coronary artery disease) I25.10 Coronary Disease-Associated Artery/Lesion type: [place] artery [place] vs. transplanted heart: [place] heart Associated angina: without angina Hypertension I10 Hypertension type: essential hypertension Atrial fibrillation with normal ventricular rate I48.91 Hyperlipidemia E78.5 Hyperlipidemia type: unspecified Hypothyroidism E03.9 Hypothyroidism type: unspecified Type 2 diabetes mellitus treated with insulin E11.9; Z79.4 (1) CAD (coronary artery disease) Coronary Disease-Associated Artery/Lesion type: [place] artery [place] vs. transplanted heart: [place] heart Associated angina: without angina Qualified Code(s): I25.10 - Atherosclerotic heart disease of [place] coronary artery without angina pectoris (2) Hypertension Hypertension type: essential hypertension Qualified Code(s): I10 - Essential (primary) hypertension (3) Hyperlipidemia Hyperlipidemia type: unspecified Qualified Code(s): E78.5 - Hyperlipidemia, unspecified (4) Hypothyroidism Hypothyroidism type: unspecified Qualified Code(s): E03.9 - Hypothyroidism, unspecified
[2021-04-01] MEDS ORDERED: ONDANSETRON INJ 2 MG/ML 2 ML VIAL IV PRN (18:59)
[2021-04-01] MEDS ORDERED: ENOXAPARIN INJ 40 MG/0.4 ML SYR SQ SCH (18:59)
[2021-04-01] MEDS ORDERED: CARBOHYDRATES FOR HYPOGLYCEMIA PO PRN (18:59)
[2021-04-01] MEDS ORDERED: GLUCOSE 10 TABS/TUBE PO PRN (18:59)
[2021-04-01] MEDS ORDERED: DEXTROSE 50% 50 ML SYRINGE IV PRN (18:59)
[2021-04-01] MEDS ORDERED: GLUCAGON FOR INJ 1 MG VIAL SQ PRN (18:59)
[2021-04-01] MEDS ORDERED: GLUCOSE 40% GEL 15 GM TUBE PO PRN (18:59)
[2021-04-01] MEDS ORDERED: ACETAMINOPHEN 325 MG TAB PO PRN (18:59)
[2021-04-01] MEDS ORDERED: SODIUM CHLORIDE 0.9% 500 ML IV SCH (18:59)
[2021-04-01] MEDS ORDERED: PATIENT'S HEIGHT AND/OR WEIGHT NEEDED SCH (19:15)
[2021-04-01] MEDS: amLODIPine BESYLATE 5 MG TAB PO SCH (21:09)
[2021-04-01] MEDS: INSULIN GLARGINE SOLOSTAR 100 UNITS/ML 3 ML PEN SC SCH (21:09)
[2021-04-01] MEDS: INSULIN ASPART 100 UNITS/ML 3 ML PEN SC SCH ×2 (21:09→21:16)
[2021-04-01] MEDS: PRAVASTATIN SOD 40 MG TAB PO SCH (21:09)
[2021-04-01 23:58] LABS: BUN Creatinine Ratio 21.8 (10-20); Creatinine Clr Calc Pharmacy 28.4 ml/min; Est GFR (Non-African American) 29.3 ml/min; Potassium 3.3 mmol/L (3.5-5.1)
[2021-04-02] MEDS: LEVOTHYROXINE SODIUM 125 MCG TABLET PO SCH (05:14)
[2021-04-02 06:32] LABS: Basophils # (auto) 0.01 K/uL (0-0.2); Basophils % (auto) 0.1 %; Eosinophils # (auto) 0.19 K/uL (0-0.5); Eosinophils % (auto) 1.9 %; Hematocrit (blood only) 37.3 % (37-47); Hemoglobin 13.3 g/dL (12.0-16.0); Immature Granulocytes # (auto) 0.02 K/uL (0.00-0.02); Immature Granulocytes % (auto) 0.2 %; Lymphocytes # (auto) 1.67 K/uL (1.2-3.4); Lymphocytes % (auto) 16.7 %; Mean Corpuscular Hemoglobin 31.2 pg (25-34); Mean Corpuscular Hgb Conc 35.7 g/dL (32-36); Mean Corpuscular Volume 87.6 fL (80-100); Mean Platelet Volume 9.3 fL (7.4-10.4); Monocytes # (auto) 0.78 K/uL (0.11-0.59); Monocytes % (auto) 7.8 %; Neutrophils # (auto) 7.33 K/uL (1.4-6.5); Neutrophils % (auto) 73.3 %; Platelet Count 126 K/uL (130-400); Red Blood Count 4.26 M/uL (4.2-5.4)
[2021-04-02 06:49] LABS: Albumin Level 3.4 gm/dl (3.4-5.0); BUN Creatinine Ratio 22.6 (10-20); Bilirubin Direct 0.4 mg/dl (0-0.2); Calcium 9.5 mg/dl (8.5-10.1); Creatinine Clr Calc Pharmacy 31.1 ml/min; Est GFR (Non-African American) 32.8 ml/min
[2021-04-02 06:52] LABS: Bilirubin,Total 1.7 mg/dl (0.2-1); Total Protein 6.7 gm/dl (6.4-8.2)
[2021-04-02] MEDS: INSULIN GLARGINE SOLOSTAR 100 UNITS/ML 3 ML PEN SC SCH ×2 (09:14→21:04)
[2021-04-02] MEDS: INSULIN ASPART 100 UNITS/ML 3 ML PEN SC SCH ×4 (09:14→21:05)
[2021-04-02] MEDS: METOPROLOL SUCC 50MG EXT REL TAB PO SCH (09:51)
[2021-04-02] MEDS: amLODIPine BESYLATE 5 MG TAB PO SCH (09:51)
[2021-04-02] MEDS ORDERED: POTASSIUM CHLORIDE CRTAB 20 MEQ TABCR PO STA (11:29)
[2021-04-02 13:17] LABS: Creatinine Clr Calc Pharmacy 31.8 ml/min; Est GFR (African American) 38.9 ml/min; Est GFR (Non-African American) 33.6 ml/min; Potassium 3.3 mmol/L (3.5-5.1)
[2021-04-02] MEDS ORDERED: SODIUM CHLORIDE 1 GM TABLET PO SCH (14:00)
--- NOTE | 2021-04-02 17:49 | Hospitalist Progress Note ---
Date of Service April 02, 2021 Assessment & Plan (1) Acute hyponatremia: Plan: - Na 125 on admission and gradually trended up to 127 with NSS. On repeat labs reduced back to 125 but asymptomatic - Stop additional IVF and will implement Na tablets 1 g daily and reassess labs in AM - Continue to hold diuretics now - suspect possibly metalozone was the underlying culprit but fluid balance margin may be narrow and could have resulted in some dilution with fluids added (2) MARJ (acute kidney injury): Plan: - Elevation of BUN and Cr from baseline. Possibly secondary to increased diuretic use and also mild elevation of CK. Patient is urinating without difficulty. - Hold diuretics; Initially given IVF and will check AM labs -Avoid nephrotoxic agents; Renal dosing where needed (3) Weakness: Plan: - RESOLVED - Likely in the setting of hyponatremia -- UA is dirty but no urinary symptoms, no fever, no leukocytosis anymore - can hold on Abx as asymptomatic bacteruria does not need to be treated - if symptoms should occur could initiate Abx - PT evaluations; fall precautions (4) CAD (coronary artery disease): Plan: - Chronic/Stable. No complaint of CP or exertional symptoms - Continue Metoprolol with hold parameters - Continue Pravastatin (5) Hypertension: Plan: - Blood pressure stable but low normal - Continue Metoprolol and hold Amlodipine - Continue to monitor; may benefit from dose reduction - could consider removal of amlodipine in setting of continued Metoprolol (6) Atrial fibrillation with normal ventricular rate: Plan: - Rate controlled - Continue Metoprolol and Xarelto (7) Hyperlipidemia: Plan: - Chronic/Stable - Continue Pravastatin (8) Hypothyroidism: Plan: - Chronic. - Continue Synthroid (9) Type 2 diabetes mellitus treated with insulin: Plan: - Chronic. Blood sugar = 168 on arrival. A1C of 5.5 in August 2020 - has been below 6 since 2018 per our records. Patient on 30u glargine q AM and Metformin outpatient - Hold oral agents and Lantus 12u BID with ISS - Goal blood sugar 100 - 140 - Patient may benefit from deescalation of therapy outpatient and discussed with patient and daughter - AIC of 5.5, 85yo Plan: DVT Prophylaxis - On Xarelto, will continue as above Code - Full Dispo - Check AM labs in AM; PT evaluations however suspect she will be able to return home; possibly home tomorrow if labs improved Admission and Anticipated Discharge Date Admission Date: April 01, 2021 Subjective Patient reports feeling well today. Na was slowly increasing but on afternoon labs returned to 125. Appears asymptomatic but will stop fluids and add sodium tablets. It appears this was likely in the setting of metolazone. Her renal function is improving, CK reducing, K repleted and improved, WBC resolved. Her urine does look dirty but she is asymptomatic in regards to urinary symptoms and afebrile and no leukocytosis. Did hold BP medications as her BP was low normal this AM. Review of Systems Review of Systems: REVIEW OF SYSTEMS General/Constitutional: Denies fever/chills, fatigue, weakness, headache ENT: Denies visual changes, nasal drainage, sore throat Cardiovascular: Denies chest pain, palpitations, edema Respiratory: Denies cough, sputum, SOB, wheezing, orthopnea GI: Denies nausea, vomiting, abdominal pain, constipation, diarrhea, melena/hematochezia : Denies dysuria, frequency, hematuria, suprapubic pain Musculoskeletal: Denies joint/muscle aches, weakness, swelling Neurologic: Denies dizziness/lightheadedness, numbness/tingling, weakness Hematologic/Lymphatic: Denies bleeding/clotting abnormalities Skin: Denies rash, itch, new skin changes, easy bruising Physical Exam Physical Exam: PHYSICAL EXAM General Appearance: WDWN in NAD who is A&O x 3 HEENT: Head is normocephalic/atraumatic; Hearing grossly intact; Mucous membranes moist; Pharynx negative for exudate/lesions Neck: Supple; Trachea midline; Neg JVD Heart: RRR with no M/G/R Lungs: CTA in all lung corrales bilaterally; Respirations unlabored; Neg accessory muscle use Abdomen: Soft, non-tender, non-distended; Positive BS x 4 quadrants; Neg organomegaly Extremities: Capillary refill < 2 seconds; Neg cyanosis or edema Neurological: Speech clear; Gross motor/sensory function intact; Neg focal neurologic deficits Psychiatric: Appropriate mood/affect Skin: Normal Color; Warm/Dry Results & Data Results & Data ([facility]) Vital Signs (Past 12 Hours) Vital Signs Temp Pulse Resp BP Pulse Ox 04/02/21 15:08 36.7 C 70 16 116/77 92 04/02/21 12:55 115/67 04/02/21 09:13 64 100/55 L 04/02/21 07:16 36.6 C 61 16 130/66 92 PG Care Time/CCT Total # of Minutes Spent Total Time Spent with Patient: Total time spent is greater than 50% in coordination of care (as documented) at patient's floor/unit and/or counseling patient: Coding Level of Care Code 62623 Subseq Hosp Care Lvl 3 Diagnoses Acute hyponatremia E87.1 MARJ (acute kidney injury) N17.9 Weakness R53.1 CAD (coronary artery disease) I25.10 Associated angina: without angina Coronary Disease-Associated Artery/Lesion type: [place] artery [place] vs. transplanted heart: [place] heart Hypertension I10 Hypertension type: essential hypertension Atrial fibrillation with normal ventricular rate I48.91 Hyperlipidemia E78.5 Hyperlipidemia type: unspecified Hypothyroidism E03.9 Hypothyroidism type: unspecified Type 2 diabetes mellitus treated with insulin E11.9; Z79.4 (1) CAD (coronary artery disease) Associated angina: without angina Coronary Disease-Associated Artery/Lesion type: [place] artery [place] vs. transplanted heart: [place] heart Qualified Code(s): I25.10 - Atherosclerotic heart disease of [place] coronary artery without angina pectoris (2) Hyperlipidemia Hyperlipidemia type: unspecified Qualified Code(s): E78.5 - Hyperlipidemia, unspecified (3) Hypothyroidism Hypothyroidism type: unspecified Qualified Code(s): E03.9 - Hypothyroidism, unspecified (4) Hypertension Hypertension type: essential hypertension Qualified Code(s): I10 - Essential (primary) hypertension
[2021-04-02] MEDS: RIVAROXABAN 15 MG TAB PO SCH (18:02)
[2021-04-02] MEDS: PRAVASTATIN SOD 40 MG TAB PO SCH (19:51)
[2021-04-03] MEDS: LEVOTHYROXINE SODIUM 125 MCG TABLET PO SCH (04:56)
[2021-04-03] MEDS: METOPROLOL SUCC 50MG EXT REL TAB PO SCH (08:54)
[2021-04-03] MEDS: INSULIN ASPART 100 UNITS/ML 3 ML PEN SC SCH ×4 (08:54→21:10)
[2021-04-03] MEDS: INSULIN GLARGINE SOLOSTAR 100 UNITS/ML 3 ML PEN SC SCH ×2 (08:54→21:11)
[2021-04-03] MEDS ORDERED: SODIUM CHLORIDE 1 GM TABLET PO SCH (09:00)
[2021-04-03 09:17] LABS: BUN Creatinine Ratio 24.4 (10-20); Calcium 10.1 mg/dl (8.5-10.1); Creatinine Clr Calc Pharmacy 34.2 ml/min; Est GFR (African American) 42.5 ml/min; Est GFR (Non-African American) 36.7 ml/min; Potassium 3.5 mmol/L (3.5-5.1)
[2021-04-03 14:06] LABS: Hematocrit (blood only) 35.6 % (37-47); Mean Corpuscular Hemoglobin 31.9 pg (25-34); Mean Corpuscular Hgb Conc 36.5 g/dL (32-36); Mean Corpuscular Volume 87.5 fL (80-100); Mean Platelet Volume 9.6 fL (7.4-10.4); Platelet Count 135 K/uL (130-400); RDW Coefficient of Variation 13.8 % (11.5-14.5); RDW Standard Deviation 43.9 fL (36.4-46.3); Red Blood Count 4.07 M/uL (4.2-5.4); White Blood Count 11.01 K/uL (4.8-10.8)
[2021-04-03 14:24] LABS: BUN Creatinine Ratio 20.3 (10-20); Calcium 9.5 mg/dl (8.5-10.1); Creatinine Clr Calc Pharmacy 30.5 ml/min; Potassium 3.6 mmol/L (3.5-5.1)
[2021-04-03] MEDS: RIVAROXABAN 15 MG TAB PO SCH (18:08)
--- NOTE | 2021-04-03 18:08 | Hospitalist Progress Note ---
Date of Service April 03, 2021 Assessment & Plan (1) Acute hyponatremia: Plan: - Na 125 on admission and gradually trended up to 127 with NSS. On repeat labs reduced back to 125 but asymptomatic - Stop additional IVF and will implement Na tablets 1 g BID and reassess labs in AM - Continue to hold diuretics now - suspect possibly metalozone was the underlying culprit but fluid balance margin may be narrow and could have resulted in some dilution with fluids added - Symptoms are resolved that prompted ER visit however would like to see Na closer to 130. Could continue a couple days of salt tabs with outpatient labs and f/u with PCP (2) MARJ (acute kidney injury): Plan: - Elevation of BUN and Cr from baseline. Possibly secondary to increased diuretic use and also mild elevation of CK. Patient is urinating without difficulty. - Hold diuretics; Initially given IVF and now will hold additional fluids - Suspect it may take a few days for renal function to return to normal as she was using increased Lasix prior to adding the metalozone -Avoid nephrotoxic agents; Renal dosing where needed (3) Weakness: Plan: - RESOLVED - Likely in the setting of hyponatremia -- UA is dirty but no urinary symptoms, no fever, no leukocytosis anymore - can hold on Abx as asymptomatic bacteruria does not need to be treated - if symptoms should occur could initiate Abx - PT evaluations; fall precautions - Recommend to utilize wheeled walker for time being and discussed with patient and daughter - pt has walker at home but normally utilizes a cane - Has a large hard hematoma of the R hip from fall and being on Xarelto - Hgb remains stable (4) CAD (coronary artery disease): Plan: - Chronic/Stable. No complaint of CP or exertional symptoms - Continue Metoprolol with hold parameters - Continue Pravastatin (5) Hypertension: Plan: - Blood pressure stable and no longer low normal - Continue Metoprolol and hold Amlodipine - Continue to monitor; may benefit from dose reduction - could consider removal of amlodipine in setting of continued Metoprolol (6) Atrial fibrillation with normal ventricular rate: Plan: - Rate controlled - Continue Metoprolol and Xarelto (7) Hyperlipidemia: Plan: - Chronic/Stable - Continue Pravastatin (8) Hypothyroidism: Plan: - Chronic. - Continue Synthroid (9) Type 2 diabetes mellitus treated with insulin: Plan: - Chronic. Blood sugar = 168 on arrival. A1C of 5.5 in August 2020 - has been below 6 since 2018 per our records. Patient on 30u glargine q AM and Metformin outpatient - Hold oral agents and Lantus 12u BID with ISS - Goal blood sugar 100 - 140 - Patient may benefit from deescalation of therapy outpatient and discussed with patient and daughter - AIC of 5.5, 85yo Plan: DVT Prophylaxis - On Xarelto, will continue as above Code - Full Dispo - Check AM labs in AM; PT evaluations completed and recommend walker and possibly home PT - did discuss with patient who is not interested but could discuss with case management on Sunday or pt can F/U with PCP if she would change her mind -- Would like to see Na at 130 at least as her symptoms are improved - outpatient labs to confirm improvement could likely D/C home tomorrow pending on AM labs or if they do get repeated in afternoon Admission and Anticipated Discharge Date Admission Date: April 01, 2021 Subjective Reports doing well today. Feels her baseline. She worked with PT and did overall well but did recommend using a walker at least initially. Pt does have a walker at home. Her Na is up to 127 and not feeling weak. She has a large bruise to the R hip that is hard but pt is not bothered by it Review of Systems Review of Systems: REVIEW OF SYSTEMS General/Constitutional: Denies fever/chills, fatigue, weakness, headache ENT: Denies nasal drainage, sore throat Cardiovascular: Denies chest pain, palpitations, edema Respiratory: Denies cough, sputum, SOB, wheezing, orthopnea GI: Denies nausea, vomiting, abdominal pain, constipation, diarrhea, melena/hematochezia : Denies dysuria, frequency, hematuria, suprapubic pain Musculoskeletal: Denies joint/muscle aches, weakness, swelling Neurologic: Denies dizziness/lightheadedness, numbness/tingling, weakness Hematologic/Lymphatic: Denies bleeding/clotting abnormalities Skin: +R hip bruise; Denies rash, itch Physical Exam Physical Exam: PHYSICAL EXAM General Appearance: WDWN in NAD who is A&O x 3 HEENT: Head is normocephalic/atraumatic; Hearing grossly intact Neck: Supple; Trachea midline; Neg JVD Heart: RRR Lungs: CTA in all lung corrales bilaterally; Respirations unlabored; Neg accessory muscle use Abdomen: Soft, non-tender, non-distended; Positive BS x 4 quadrants; Neg organomegaly Extremities: Capillary refill < 2 seconds; Neg cyanosis or edema Neurological: Speech clear; Gross motor/sensory function intact; Neg focal neurologic deficits Psychiatric: Appropriate mood/affect Skin: +large hard hematoma to the R hip; Normal Color; Warm/Dry Results & Data Results & Data ([place]) Vital Signs (Past 12 Hours) Vital Signs Temp Pulse Resp BP Pulse Ox 04/03/21 16:08 36.8 C 68 16 153/86 H 92 04/03/21 07:44 36.7 C 65 18 125/58 L 96 PG Care Time/CCT Total # of Minutes Spent Total Time Spent with Patient: Total time spent is greater than 50% in coordination of care (as documented) at patient's floor/unit and/or counseling patient: Coding Level of Care Code 03975 Subseq Hosp Care Lvl 2 Diagnoses Acute hyponatremia E87.1 MARJ (acute kidney injury) N17.9 Weakness R53.1 CAD (coronary artery disease) I25.10 Associated angina: without angina Coronary Disease-Associated Artery/Lesion type: [place] artery [place] vs. transplanted heart: [place] heart Hypertension I10 Hypertension type: essential hypertension Atrial fibrillation with normal ventricular rate I48.91 Hyperlipidemia E78.5 Hyperlipidemia type: unspecified Hypothyroidism E03.9 Hypothyroidism type: unspecified Type 2 diabetes mellitus treated with insulin E11.9; Z79.4 (1) CAD (coronary artery disease) Associated angina: without angina Coronary Disease-Associated Artery/Lesion type: [place] artery [place] vs. transplanted heart: [place] heart Qualified Code(s): I25.10 - Atherosclerotic heart disease of [place] coronary artery without angina pectoris (2) Hyperlipidemia Hyperlipidemia type: unspecified Qualified Code(s): E78.5 - Hyperlipidemia, unspecified (3) Hypothyroidism Hypothyroidism type: unspecified Qualified Code(s): E03.9 - Hypothyroidism, unspecified (4) Hypertension Hypertension type: essential hypertension Qualified Code(s): I10 - Essential (primary) hypertension
[2021-04-03] MEDS: SODIUM CHLORIDE 1 GM TABLET PO SCH (21:09)
[2021-04-03] MEDS: PRAVASTATIN SOD 40 MG TAB PO SCH (21:09)
[2021-04-04] MEDS: LEVOTHYROXINE SODIUM 125 MCG TABLET PO SCH (05:51)
[2021-04-04 08:31] LABS: BUN Creatinine Ratio 23.3 (10-20); Creatinine Clr Calc Pharmacy 39.2 ml/min; Est GFR (African American) 50.2 ml/min; Est GFR (Non-African American) 43.4 ml/min; Potassium 3.1 mmol/L (3.5-5.1)
[2021-04-04] MEDS ORDERED: POTASSIUM CHLORIDE CRTAB 20 MEQ TABCR PO STA (08:34)
--- NOTE | 2021-04-04 08:35 | Hospitalist Progress Note ---
Date of Service April 04, 2021 Assessment & Plan Admission and Anticipated Discharge Date Admission Date: April 01, 2021 Results & Data Results & Data ([place]) Vital Signs (Past 12 Hours) Vital Signs Temp Pulse Resp BP Pulse Ox 04/04/21 07:37 36.6 C 66 16 123/66 90 04/03/21 22:52 36.9 C 74 18 133/71 96 Laboratory Results 04/04/21 04/04/21 04/03/21 Range/Units 08:10 07:17 20:49 WBC (4.8-10.8) K/uL RBC (4.2-5.4) M/uL Hgb (12.0-16.0) g/dL Hct (37-47) % MCV (80-100) fL MCH (25-34) pg MCHC (32-36) g/dL RDW Std Deviation (36.4-46.3) fL RDW Coeff of Patti (11.5-14.5) % Plt Count (130-400) K/uL MPV (7.4-10.4) fL Sodium 128 L (136-145) mmol/L Potassium 3.1 L (3.5-5.1) mmol/L Chloride 90 L (98-107) mmol/L Carbon Dioxide 29 (21-32) mmol/L Anion Gap 9.0 (3-11) BUN 27 H (7-18) mg/dl Creatinine 1.15 D (0.6-1.2) mg/dl Est Cr Clr Drug Dosing 39.2 ml/min Est GFR ( Amer) 50.2 ml/min Est GFR (Non-Af Amer) 43.4 ml/min BUN/Creatinine Ratio 23.3 H (10-20) Glucose 117 H (70-99) mg/dl POC Glucose 132 H 175 H (70-99) mg/dl Calcium 10.0 (8.5-10.1) mg/dl Total Creatine Kinase (26-192) U/L 04/03/21 04/03/21 04/03/21 Range/Units 17:15 13:51 13:51 WBC 11.01 H (4.8-10.8) K/uL RBC 4.07 L (4.2-5.4) M/uL Hgb 13.0 (12.0-16.0) g/dL Hct 35.6 L (37-47) % MCV 87.5 (80-100) fL MCH 31.9 (25-34) pg MCHC 36.5 H (32-36) g/dL RDW Std Deviation 43.9 (36.4-46.3) fL RDW Coeff of Patti 13.8 (11.5-14.5) % Plt Count 135 (130-400) K/uL MPV 9.6 (7.4-10.4) fL Sodium 127 L (136-145) mmol/L Potassium 3.6 (3.5-5.1) mmol/L Chloride 90 L (98-107) mmol/L Carbon Dioxide 32 (21-32) mmol/L Anion Gap 5.0 (3-11) BUN 30 H (7-18) mg/dl Creatinine 1.48 H (0.6-1.2) mg/dl Est Cr Clr Drug Dosing 30.5 ml/min Est GFR ( Amer) 37.0 ml/min Est GFR (Non-Af Amer) 32.0 ml/min BUN/Creatinine Ratio 20.3 H (10-20) Glucose 147 H (70-99) mg/dl POC Glucose 137 H (70-99) mg/dl Calcium 9.5 (8.5-10.1) mg/dl Total Creatine Kinase (26-192) U/L 04/03/21 04/03/21 Range/Units 12:01 07:45 WBC (4.8-10.8) K/uL RBC (4.2-5.4) M/uL Hgb (12.0-16.0) g/dL Hct (37-47) % MCV (80-100) fL MCH (25-34) pg MCHC (32-36) g/dL RDW Std Deviation (36.4-46.3) fL RDW Coeff of Patti (11.5-14.5) % Plt Count (130-400) K/uL MPV (7.4-10.4) fL Sodium 127 L (136-145) mmol/L Potassium 3.5 (3.5-5.1) mmol/L Chloride 88 L (98-107) mmol/L Carbon Dioxide 30 (21-32) mmol/L Anion Gap 9.0 (3-11) BUN 32 H (7-18) mg/dl Creatinine 1.32 H (0.6-1.2) mg/dl Est Cr Clr Drug Dosing 34.2 ml/min Est GFR ( Amer) 42.5 ml/min Est GFR (Non-Af Amer) 36.7 ml/min BUN/Creatinine Ratio 24.4 H (10-20) Glucose 134 H (70-99) mg/dl POC Glucose 164 H (70-99) mg/dl Calcium 10.1 (8.5-10.1) mg/dl Total Creatine Kinase 149 (26-192) U/L PG Care Time/CCT Total # of Minutes Spent Total Time Spent with Patient: Total time spent is greater than 50% in coordination of care (as documented) at patient's floor/unit and/or counseling patient: Coding
[2021-04-04] MEDS: SODIUM CHLORIDE 1 GM TABLET PO SCH (09:27)
[2021-04-04] MEDS: METOPROLOL SUCC 50MG EXT REL TAB PO SCH (09:27)
[2021-04-04] MEDS: INSULIN GLARGINE SOLOSTAR 100 UNITS/ML 3 ML PEN SC SCH (09:28)
[2021-04-04] MEDS: INSULIN ASPART 100 UNITS/ML 3 ML PEN SC SCH ×2 (09:28→12:57)
--- NOTE | 2021-04-04 10:10 | Electrocardiogram Report ---
Test Reason : Blood Pressure : / mmHG Vent. Rate : 070 BPM Atrial Rate : 036 BPM P-R Int : 000 ms QRS Dur : 212 ms QT Int : 510 ms P-R-T Axes : 000 -71 103 degrees QTc Int : 550 ms Poor data quality, interpretation may be adversely affected Ventricular-paced rhythm Abnormal ECG When compared with ECG of 01-APR-2021 14:54, (unconfirmed) Premature ventricular complexes are no longer Present Vent. rate has decreased BY 2 BPM Confirmed by Gerber Shook ([id number]) on 04/04/2021 10:10:36 AM Referred By: Confirmed By:Gerber Shook
[2021-04-04 10:21] LABS: Basophils # (auto) 0.01 K/uL (0-0.2); Basophils % (auto) 0.1 %; Eosinophils # (auto) 0.21 K/uL (0-0.5); Eosinophils % (auto) 2.3 %; Hematocrit (blood only) 36.1 % (37-47); Hemoglobin 12.7 g/dL (12.0-16.0); Immature Granulocytes # (auto) 0.03 K/uL (0.00-0.02); Immature Granulocytes % (auto) 0.3 %; Lymphocytes # (auto) 1.96 K/uL (1.2-3.4); Lymphocytes % (auto) 21.6 %; Mean Corpuscular Hemoglobin 30.9 pg (25-34); Mean Corpuscular Hgb Conc 35.2 g/dL (32-36); Mean Corpuscular Volume 87.8 fL (80-100); Mean Platelet Volume 9.9 fL (7.4-10.4); Monocytes # (auto) 0.83 K/uL (0.11-0.59); Monocytes % (auto) 9.2 %; Neutrophils # (auto) 6.02 K/uL (1.4-6.5); Neutrophils % (auto) 66.5 %; Platelet Count 154 K/uL (130-400); RDW Coefficient of Variation 13.8 % (11.5-14.5); RDW Standard Deviation 44.1 fL (36.4-46.3); Red Blood Count 4.11 M/uL (4.2-5.4); White Blood Count 9.06 K/uL (4.8-10.8)
--- NOTE | 2021-04-04 11:03 | Discharge Summary ---
Date of Service April 04, 2021 Admission HPI Per Admitting Provider Temi Carter is an 85yo female with history of Aortic stenosis s/p bioprosthetic AVR, AF on anticoagulation, DM, HTN, Hypothyroid and CAD. She was seen in Cardiology clinic on 03/29 with complaitn of SOB. She had an echo performed which was unremarkable. She was suspected to have pulmonary vascular congestion and was instructed to take Lasix 80mg daily + Metolazone. She has been taking those medications since yesterday. She presents today with weakness, fatigue and difficulty with ambulation. She fell last night and was unable to get up due to weakness and she fell again this AM. Her breathing has improved. She denies chest pain, abdominal pain, nausea, vomiting, constipation. She does have a headache and her daughter states that her speech is more "thick tongued" than normal. No additional complaints. ER Course: NSS x 1 L Admission Exam Per Admitting Provider General: patient resting comfortably, NAD, non-toxic in appearance, AA&O x 4 Skin: warm, dry, intact, no rashes or lesions HEENT: NC/AT, PERRL, EOMI, anicteric sclera, conjunctiva without injection, external ear normal to inspection and nontender, nares patent, dry mucus membranes, dentition intact, no oropharyngeal lesions, neck supple, trachea midline, no LAD, no thyromegaly, no JVD Heart: +S1/S2, irregularly irregular, no m/r/g Lungs: equal air entry bilaterally, no rales/rhonchi/wheezes Abd: +BS, soft, NT/ND, no masses/organomegaly/ascites Ext: warm, 2+ pulses in UE/LE bilaterally, no clubbing/cyanosis, trace edema Neuro: nonfocal, patient AA&O x 4, speech intact, no facial droop, moving all extremities on command with equal strength 5/5 Principal Diagnosis Hyponatremia, Acute Kidney Injury, UTI Discharge Exam General Appearance: WDWN in NAD who is A&O x 3 HEENT: Head is normocephalic/atraumatic; Hearing grossly intact Neck: Supple; Trachea midline; Neg JVD Heart: RRR Lungs: CTA in all lung corrales bilaterally; Respirations unlabored; Neg accessory muscle use Abdomen: Soft, non-tender, non-distended; Positive BS x 4 quadrants; Neg organomegaly Extremities: Capillary refill < 2 seconds; Neg cyanosis or edema Neurological: Speech clear; Gross motor/sensory function intact; Neg focal neurologic deficits Psychiatric: Appropriate mood/affect Skin: +large hard hematoma to the R hip; Normal Color; Warm/Dry Discharge Data Allergies Allergy/AdvReac Type Severity Reaction Status Date / Time oxycodone Allergy Intermediate HIVES Verified 04/01/21 13:41 propoxyphene Allergy Intermediate RASH Verified 04/01/21 13:41 lisinopril Allergy Unknown patient Verified 04/01/21 13:41 does not remember Ordered Studies Chest X-Ray 04/01/21 14:46 XR chest 1V portable HISTORY: weakness COMPARISON: Chest 05/21/2020. FINDINGS: No pneumothorax. No pleural effusions. The heart is moderately enlarged. This remains unchanged. There is a tortuous thoracic aorta. Poststernotomy changes and an aortic valve prosthesis are again noted. No new focal lung consolidations to suggest pneumonia. No evidence for pulmonary edema. Is left-sided dual-chamber pacemaker. IMPRESSION: No significant change compared to the prior study. No acute process. Stable cardiomegaly. ACT 112: Negative or not required by law. Electronically signed by: Jarred Quintanilla M.D. 04/01/2021 3:[address] 04/01/21 14:46 CT SCAN OF THE BRAIN WITHOUT IV CONTRAST CLINICAL HISTORY: Fall. COMPARISON STUDY: CT of the brain dated 04/22/2020. TECHNIQUE: Unenhanced axial CT scan of the brain is performed from the vertex to the skull base. A dose lowering technique was utilized adhering to the principles of ALARA. CT DOSE: 537.48 mGy.cm FINDINGS: Brain parenchyma: There are age-related involutional changes noting moderate to advanced subcortical and periventricular microangiopathic change. There is no hemorrhage, mass effect, or evidence of acute territorial ischemia by CT criteria. Grace-white matter differentiation is preserved. No extra-axial fluid collection is identified. A chronic lacunar infarct is seen in the right ce rebellar hemisphere. Mineralization is noted in the basal ganglia. Ventricles, sulci, cisterns: Prominent secondary to involutional change. Intracranial vasculature: There is atherosclerotic calcification of the cavernous carotid and vertebral arteries. Calvarium: The skeletal structures are osteopenic. There is no depressed calvarial fracture. Sinuses and mastoids: The visualized paranasal sinuses are clear. The mastoid air cells are well pneumatized. Orbits: The bony orbits are grossly intact. There are bilateral ocular lens implants. IMPRESSION: There is no hemorrhage, mass effect, or evidence of acute territorial ischemia by CT criteria. ACT 112: Negative or not required by law. Electronically signed by: Rober Tovar M.D. 04/01/2021 3:43 PM Hospital Course (1) Acute hyponatremia: Patient seen by formal service waiter prior to admission with reports of shortness of breath and was instructed to take increased 80 mg of Lasix along with 2.5 mg of metolazone for 2 to 3 days prior to admission where she was found to have a fall, weakness, dehydration and a sodium level of 125. Also could be due to lack of oral intake as she was subsequently found to have a Serratia marcescens/group B strep UTI and will be sent on Cipro for 3 days to complete treatment (asymptomatic) IV fluids were provided but then held and patient was placed on sodium tablets 1 g twice daily with sodium holding steady at 128 and patient remains asymptomatic. Instructed patient to take an additional 4 doses of sodium chloride and to continue to hold her Lasix for the next 2 to 3 days with repeat labs as an outpatient to ensure sodium back to normal before resuming. Follow- up with her primary care provider as well as her formal service waiter with possible benefit from following with the CHF clinic to utilize as needed diuretics to maintain euvolemia Discussed with patient about staying an additional night to continue to monitor her electrolytes and getting her sodium closer to 130 however patient requested that she be able to be discharged and decided on the above plan with close follow-up. Patient declined any home physical therapy and felt that her daughter would be able to assist with her cane and walker at home. If this condition changes she decides to alert her primary care about arranging for some home health (2) MARJ (acute kidney injury): = BUN and creatinine elevated to 1.98 on admissionsecondary to increased diuretic and metolazone as above Diuretics were held and patient was rehydrated with instructions to continue to hold her diuretics for an additional 2 3 days at discharge with repeat labs to ensure stable kidney function Suspect it may take a few days for renal function to completely normalize however. And is 1.14 prior to discharge (3) Weakness: - RESOLVED - Likely in the setting of hyponatremia -- UA is dirty but no urinary symptoms, no fever, no leukocytosis anymore - can hold on Abx as asymptomatic bacteruria does not need to be treated - if symptoms should occur could initiate Abx - PT evaluations; fall precautions - Recommend to utilize wheeled walker for time being and discussed with patient and daughter - pt has walker at home but normally utilizes a cane - Has a large hard hematoma of the R hip from fall and being on Xarelto - Hgb remained stable (4) CAD (coronary artery disease): - Chronic/Stable. No complaint of CP or exertional symptoms - Continued Metoprolol with hold parameters - Continued Pravastatin (5) Hypertension: - Blood pressure stable and no longer low normal - Continued Metoprolol --Discontinued the pain prevent worsening hypotension/fall (6) Atrial fibrillation with normal ventricular rate: - Rate controlled - Continued Metoprolol and Xarelto (7) Hyperlipidemia: - Chronic/Stable - Continued Pravastatin (8) Hypothyroidism: - Chronic. TSH wnl - Continued Synthroid (9) Type 2 diabetes mellitus treated with insulin: - Chronic. Blood sugar = 168 on arrival. A1C of 5.5 in August 2020 - has been below 6 since 2018 per our records. Patient on 30u glargine q AM and Metformin outpatient - Hold oral agents and Lantus 12u BID with ISS - Goal blood sugar 100 - 140 - Patient may benefit from deescalation of therapy outpatient and discussed with patient and daughter - AIC of 5.5, 85yo --> to follow up with PCP. No hypoglycemia during inpatient stay DVT Prophylaxis - On Xarelto, will continue as above Code - Full Discharged home with daughter Total Time Total Time Spent Total Time Spent (In Minutes): 60 Discharge Plan Discharge Items Patient Disposition: Home - Self-Care Reason For Visit: FALL, HYPONATREMIA, DEHYDRATION Discharge Diagnosis: Acute Hyponatremia, Acute Kidney Injury Goals: You have been hospitalized for an acute medical problem. During your stay at [facility], we have made an effort to correct the problem that brought you to the hospital while keeping you as comfortable as possible. Medications were used to bring your condition under control and your discharge instructions will include directions for any medications you should take after leaving the hospital. Please make sure you see your Primary Care Provider as part of your follow up plan. Activity: As commented below Activity Comment: advance with walker with family support Non-emergency contact: Primary Care Provider and International Guest Coordinator Call non-emergency contact if: you have any medication questions Follow-up/Referrals: Nu Castro MD [Primary Care Provider] - Diet: Carb Consistent or DM2 and Heart Healthy Ambulatory Orders: Basic Metabolic Panel (Routine) Timeframe: 3 Days Location: Determined by Patient Ordered By: Patria Minayatl Attending Provider Instructions: You have been hospitalized for acute hyponatremia and kidney injury, likely secondary to your diuretic use prior to hospitalization. Your diuretics were held and you should continue to hold these for the next three days, and can resume your usual dose on 04/08 after your repeat labs are drawn to ensure your sodium is back to normal. You have been treated with some salt tablets and should continue these for 2 days, twice daily, for a total of 4 doses. You should follow up with your cardiology office to monitor your progress within the week after discharge and should discuss possible follow up with CHF clinic for closer monitoring of your weights to see about extra "as needed" diuretics to prevent several days of strong diuretics and resulting in large dehydration/falls/kidney injury like current hospitalization. You should follow up with your primary care after discharge to monitor your progress. Your urine grew out bacteria, and you are being sent on CIPROFLOXACIN 250mg by mouth TWICE daily for THREE days to complete treatment. Please return to the nearest emergency department with any chest pain, shortness of breath, inability to keep up with oral intake, or for any other symptoms that are concerning for you. It has been a pleasure being a part of the medical team providing for you while you have been in the hospital. Take care! Pending Studies at Discharge: No Stand-Alone Forms: My [facility] Medications and DC Order Prescriptions: New ciprofloxacin HCl 250 mg tablet 250 mg PO Q12H Qty: 6 RF: 0 sodium chloride 1 gram Tablet 1 g PO BID Qty: 4 RF: 0 Continued (DME) FreeStyle Shannan 14 Day Sensor Kit See Rx Instructions .ROUTE .MEDSUPPLY Qty: 1 RF: 0 (DME) FreeStyle Shannan 14 Day [place] Misc See Rx Instructions .ROUTE .MEDSUPPLY Qty: 1 RF: 0 (DME) lancets [Accu-Chek Softclix Lancets] Misc See Rx Instructions .ROUTE .MEDSUPPLY Qty: 200 RF: 5 Basaglar KwikPen U-100 Insulin 100 unit/mL (3 mL) insulin pen 30 unit SQ QAM Qty: 15 RF: 6 amlodipine 5 mg tablet 5 mg PO BID Qty: 180 RF: 1 levothyroxine 125 mcg tablet 125 mcg PO DAILY Qty: 90 RF: 1 (DME) pen needle, diabetic [BD Ultra-Fine Short Pen Needle] 31 gauge x 5/16" needle See Dose Instructions .ROUTE .MEDSUPPLY Qty: 100 RF: 1 metformin 1,000 mg tablet 1,000 mg PO BID Qty: 180 RF: 1 furosemide 40 mg tablet 40 mg PO DAILY Qty: 90 RF: 1 metoprolol succinate 100 mg tablet extended release 24 hr 100 mg PO DAILY Qty: 90 RF: 3 pravastatin 40 mg tablet 40 mg PO QPM Qty: 90 RF: 3 ascorbic acid (vitamin C) 100 mg tablet 100 mg PO DAILY RF: 0 cholecalciferol (vitamin D3) 25 mcg (1,000 unit) tablet 25 mcg PO DAILY RF: 0 Xarelto 15 mg tablet 15 mg PO DAILY Qty: 90 RF: 1 calcium carbonate-vitamin D3 [Calcium 600 + D(3)] 600 mg(1,500mg) -200 unit Tablet 1 tab PO DAILY RF: 0 [id number] Tablet 1 tab PO DAILY RF: 0 Discontinued metolazone 2.5 mg tablet 2.5 mg PO DAILY Qty: 15 RF: 1 Discharge Orders: Discharge Order (Routine); Ordered 04/04/21 Ordered By: Patria Quintana/Other Patient Handouts: High Blood Sugar (Hyperglycemia), Hypoglycemia (Low Blood Sugar), Managing Type 2 Diabetes Admission Data Admit Date/Time: 04/01/21 16:08 Attending Provider: Feliciano Kennedy Admit Provider: Chiqui Weaver Primary Care Provider: Nu Castro Coding Level of Care Code D/C DAY MANAGEMENT >30 MINS Diagnoses Acute hyponatremia E87.1 MARJ (acute kidney injury) N17.9 Weakness R53.1 CAD (coronary artery disease) I25.10 Associated angina: without angina Coronary Disease-Associated Artery/Lesion type: [place] artery [place] vs. transplanted heart: [place] heart Hypertension I10 Hypertension type: essential hypertension Atrial fibrillation with normal ventricular rate I48.91 Hyperlipidemia E78.5 Hyperlipidemia type: unspecified Hypothyroidism E03.9 Hypothyroidism type: unspecified Type 2 diabetes mellitus treated with insulin E11.9; Z79.4
[2021-04-04 14:47] LABS: BUN Creatinine Ratio 21.1 (10-20); Calcium 9.7 mg/dl (8.5-10.1); Creatinine Clr Calc Pharmacy 39.6 ml/min; Est GFR (African American) 50.8 ml/min; Est GFR (Non-African American) 43.8 ml/min; Potassium 3.7 mmol/L (3.5-5.1)
[2021-04-04] MEDS: RIVAROXABAN 15 MG TAB PO SCH (16:09)
== END 2021-04-04 16:35 | disposition home or self-care (01) | DRG 683 ==
LOC: ED 12:39 → SUATTDRO 16:08 → 3N 16:08
DX: I25.10 Atherosclerotic heart disease of native coronary artery without angina pectoris; E78.5 Hyperlipidemia, unspecified; N39.0 Urinary tract infection, site not specified; Z87.891 Personal history of nicotine dependence; R79.89 Other specified abnormal findings of blood chemistry; T50.2X5A Adverse effect of carbonic-anhydrase inhibitors, benzothiadiazides and other diuretics, initial encounter; E03.9 Hypothyroidism, unspecified; Z82.49 Family history of ischemic heart disease and other diseases of the circulatory system; I50.9 Heart failure, unspecified; I48.91 Unspecified atrial fibrillation; Z79.899 Other long term (current) drug therapy; Z79.890 Hormone replacement therapy; Z79.01 Long term (current) use of anticoagulants; Z88.5 Allergy status to narcotic agent; E11.9 Type 2 diabetes mellitus without complications; N17.9 Acute kidney failure, unspecified; Z91.81 History of falling; Z95.2 Presence of prosthetic heart valve; E87.1 Hypo-osmolality and hyponatremia; Z88.8 Allergy status to other drugs, medicaments and biological substances; Z86.718 Personal history of other venous thrombosis and embolism; Z95.0 Presence of cardiac pacemaker; I11.0 Hypertensive heart disease with heart failure; Z79.4 Long term (current) use of insulin

== ENCOUNTER 2022-03-31 15:24 | Inpatient (IN) ==
--- NOTE | 2022-03-31 15:49 | Emergency Department Note ---
Impression & Plan CHF (congestive heart failure), BOWMAN (dyspnea on exertion), Hypoxia ED Provider Note Provider: Juan Manuel Cadet MD DATE OF SERVICE: 03/31/2022 CHIEF COMPLAINT: Shortness of breath HISTORY OF PRESENT ILLNESS: Patient is a 86-year-old female history of aortic stenosis s/p replacement, atrial fibrillation on Xarelto, type 2 diabetes, hypertension, CAD, pacemaker presenting today via ambulance from her primary care doctor's office. Patient was there with her daughter by her report for evaluation. She states that she has had some shortness of breath developing last several days but no more at rest. Patient herself states she does not have any pain. She denies fall or trauma. Denies significant leg swelling. States compliance with home medications. Does not wear oxygen at home. At the doctor's office was noted to have room air oxygen's 89 to 90% on room air and had pursed lip breathing. She evidently had some increase in her weight and was sent here for further evaluation. Denies sick contact. REVIEW OF SYSTEMS: A total of 10 review of systems was obtained and negative except as stated above in the HPI. PAST MEDICAL HISTORY: As noted above MEDICATIONS: Reviewed home medication list which includes Lasix and Xarelto SOCIAL HISTORY: Patient reports living by herself on one level PHYSICAL EXAM: GENERAL: alert and oriented in no acute distress on stretcher Head: normocephalic and atraumatic EYES: No injection, discharge or icterus. NECK: Trachea midline. ENT: Mucous membranes pink and moist. LUNGS: Airway patent. No retractions. Breath sounds with diminished bases and slight crackles HEART: Regular rate and rhythm. No chest wall tenderness ABDOMEN: Soft and non-tender, without guarding or rebound. SKIN: Acyanotic, warm, dry, without rashes EXTREMITIES: Without tenderness or deformity with mild trace bilateral edema of the legs. NEUROLOGICAL: No focal deficits. No aphasia. No facial droop or slurred speech. EK bpm AV paced with prolonged AV conduction. No acute ST segment elevation and appears similar in appearance to previous from March 2021 in the system. QTc 522. CONTINUOUS CARDIAC MONITORING: was ordered and showed a heart rate of 60s bpm in AV paced rhythm Patient's laboratory studies and imaging reviewed. Differential includes Reactive airway disease, pneumonia, pneumothorax, COPD, CHF, infections, cardiac ischemia, pulmonary embolism, musculoskeletal, gastrointestinal, as well as other pathologies. IMPRESSION/MEDICAL DECISION MAKING: Patient with multiple medical comorbidities on Xarelto. Low suspicion for PE given the anticoagulation. Denies significant chest pain. EKG and troponin were completed however. Concern given some increased weight gain this may represent fluid overload given her delicate fluid balance given her comorbidities. Chest x-ray obtained as well as basic blood work. COVID test sent. Chest x-ray per radiology with some cardiomegaly. Laboratory studies without anemia or leukocytosis. No significant electrolyte abnormality. Mild troponin elevation of 22. BNP elevated 346. Negative COVID. Stable renal function creatinine 1.2. Patient was on room air here over went to ambulate to the bathroom and desaturated quickly into the low 80s. Placed on supplemental oxygen to help her rebound after this. Given her hypoxia with ambulation which is new with her delicate fluid balance believe she is somewhat fluid overloaded. BNP again is somewhat elevated. Given some additional IV Lasix here. Believe further care here at the hospital is indicated. Daughter updated at bedside and agrees the patient should stay. Patient begrudgingly agrees. Given 80 mg of IV Lasix. DIAGNOSIS: Dyspnea with exertion, CHF exacerbation, fluid overload DISPOSITION: Hospitalist will evaluate Patient was agreeable with this plan. Past Med/Surg History Medical History Atrial fibrillation with normal ventricular rate Cholelithiasis Diabetes DVT of lower extremity (deep venous thrombosis) History of cardioversion HX: breast cancer Hypertension Hypothyroidism Pneumonia Surgical History H/O aortic valve replacement History of hysterectomy Knee joint replacement status S/P breast lumpectomy S/P cardiac catheterization S/P rotator cuff repair S/P umbilical hernia repair, follow-up exam Family History Mother Myocardial infarction Cardiac disorder Brother Myocardial infarction Denies family history of Colon cancer Ovarian cancer Prostate cancer Breast cancer Social History Smoking Status: Never smoker Age Quit Using Tobacco: 31; Second Hand Exposure: No; Hx Alcohol Use: No Hx Substance Use: No Preferred Language: Norwegian Communication Ability: Effective Visual Impairment: No Limitations Hearing Ability: Hard of Hearing Chemistry Quality Control Technician Required: No Beliefs That Will Affect Care: None marital status: / Current Living Situation: Alone Current Living Situation Comment: Home alone in a two story, only uses first level, daughter provides food current occupational status: retired Feels Safe at Home: Yes Childhood Exposure to Second-Hand Smoke: No Dental Care, Regularly: No Physical Activity Frequency: Does not Exercise Seatbelt Use: always Sunscreen Use: Yes Assistive Devices: Cane Allergies Allergies Allergy/AdvReac Type Severity Reaction Status Date / Time oxycodone Allergy Intermediate HIVES Verified 03/31/22 14:10 propoxyphene Allergy Intermediate RASH Verified 03/31/22 14:10 lisinopril Allergy Unknown patient Verified 03/31/22 14:10 does not remember Home Meds Home Medications Medication Instructions Recorded Confirmed ascorbic acid (vitamin C) 100 mg 100 mg PO DAILY 06/10/19 03/31/22 tablet cholecalciferol (vitamin D3) 25 25 mcg PO DAILY 06/10/19 03/31/22 mcg (1,000 unit) tablet calcium carbonate 600 mg-vitamin 1 tab PO DAILY 04/22/20 03/31/22 D3 5 mcg (200 unit) tablet (Calcium 600 + D(3)) gyhwcuzymkpj-zlxykxhq-gjbion tablet 1 tab PO DAILY 04/22/20 03/31/22 metformin 1,000 mg tablet 1,000 mg PO BID 03/31/22 03/31/22 pravastatin 40 mg tablet 40 mg PO QPM 03/31/22 03/31/22 rivaroxaban 15 mg tablet (Xarelto) 15 mg PO DAILY 03/31/22 03/31/22 Previous Rx's Medication Instructions Recorded flash glucose scanning reader #1 ea 02/15/20 (FreeStyle Shannan 14 Day [place]) flash glucose sensor (FreeStyle #1 ea 02/15/20 Shannan 14 Day Sensor kit) lancets (Accu-Chek Softclix #200 ea 06/02/20 Lancets) levothyroxine 125 mcg tablet 125 mcg PO DAILY Hypothyroidism 04/27/21 #90 tabs insulin glargine 100 unit/mL (3 30 unit (0.3 mL) subcut QAM #15 mL 06/24/21 mL) subcutaneous pen (Basaglar KwikPen U-100 Insulin) furosemide 40 mg tablet 80 mg PO DAILY #180 tabs 08/08/21 metoprolol succinate 100 mg 100 mg PO DAILY #90 tabs 01/30/22 tablet,extended release 24 hr pen needle, diabetic 31 gauge x #100 ea 02/02/22 5/16" (BD Ultra-Fine Short Pen Needle) Results & Data (ED) Vital Signs Vital Signs - 24 hr 03/31/22 15:38 03/31/22 15:45 03/31/22 16:36 Temperature 36.4 C L Temperature Source Oral Pulse Rate 64 60 Pulse Rhythm Regular Respiratory Rate 20 20 Respiratory Effort / Characteristics Non-Labored Respiratory Depth Normal Respiratory Pattern Blood Pressure 150/61 H Blood Pressure Mean 90 Blood Pressure Position Semi-fowlers Pulse Oximetry 92 83 L Oxygen Delivery Method Room Air Room Air Room Air Other Oxygen Flow Rate Sepsis Recent Fever Within 48 Hours No Sepsis New/Unexplained Change in Mental Status No Sepsis Action Taken by Nursing No Action Required 03/31/22 15:58 03/31/22 16:35 Temperature Temperature Source Pulse Rate Pulse Rhythm Respiratory Rate Respiratory Effort / Characteristics Spontaneous Respiratory Depth Normal Respiratory Pattern Regular Blood Pressure Blood Pressure Mean Blood Pressure Position Pulse Oximetry Oxygen Delivery Method Room Air Room Air Other Oxygen Flow Rate 3 Sepsis Recent Fever Within 48 Hours Sepsis New/Unexplained Change in Mental Status Sepsis Action Taken by Nursing Laboratory Data Result diagrams: 03/31/22 16:05 03/31/22 16:05 Lab Results 03/31/22 03/31/22 03/31/22 Range/Units 15:45 16:05 16:05 WBC 7.83 (4.8-10.8) K/ul RBC 4.08 (3.93-5.22) M/uL Hgb 12.8 (12.0-16.0) g/dl Hct 37.8 (34.1-44.9) % MCV 92.6 (80.0-100.0) fL MCH 31.4 (25.0-34.0) pg MCHC 33.9 (32.0-36.0) g/dL RDW Std Deviation 46.6 H (36.4-46.3) fL RDW Coeff of Patti 13.7 (11.5-14.5) % Plt Count 141 (130-400) K/uL MPV 9.7 (9.4-12.3) fL Immature Gran % (Auto) 0.5 % Neut % (Auto) 65.9 % Lymph % (Auto) 21.1 % [place] % (Auto) 8.0 % Eos % (Auto) 4.2 % Baso % (Auto) 0.3 % Neut # (Auto) 5.16 (1.4-6.5) K/uL Lymph # (Auto) 1.65 (1.2-3.4) K/uL [place] # (Auto) 0.63 (0.24-0.82) K/uL Eos # (Auto) 0.33 (0-0.50) K/uL Baso # (Auto) 0.02 (0-0.2) K/uL Immature Gran # (Auto) 0.04 H (0.00-0.02) K/uL PT 11.9 (9.0-12.0) Seconds INR 1.1 (0.9-1.1) Sodium (136-145) mmol/L Potassium (3.5-5.1) mmol/L Chloride (98-107) mmol/L Carbon Dioxide (21-32) mmol/L Anion Gap (3-11) BUN (6-23) mg/dl Creatinine (0.6-1.2) mg/dl Est Cr Clr Drug Dosing ml/min Est GFR ( Amer) ml/min Est GFR (Non-Af Amer) ml/min BUN/Creatinine Ratio (10-20) Glucose (70-99(Fasting)) mg/dl Lactate (0.4-2.0) mmol/L Calcium (8.5-10.1) mg/dl Magnesium (1.7-2.4) mg/dl Total Bilirubin (0.2-1.0) mg/dl AST (13-39) U/L ALT (7-52) U/L Alkaline Phosphatase (34-104) U/L Troponin I High Sens (0-14) pg/ml B-Natriuretic Peptide (0-100) pg/ml Total Protein (6.0-8.3) gm/dl Albumin (3.4-5.0) gm/dl Globulin (2.5-4.0) gm/dl Albumin/Globulin Ratio (0.9-2) Procalcitonin (0-0.5) ng/ml TSH (0.300-4.500) uIu/ml Lyme Disease IgG Ab (Negative) Lyme Disease IgM Ab (Negative) SARS-CoV-2, RNA, NAAT NEGATIVE (NEGATIVE) 03/31/22 03/31/22 03/31/22 Range/Units 16:05 16:05 16:05 WBC (4.8-10.8) K/ul RBC (3.93-5.22) M/uL Hgb (12.0-16.0) g/dl Hct (34.1-44.9) % MCV (80.0-100.0) fL MCH (25.0-34.0) pg MCHC (32.0-36.0) g/dL RDW Std Deviation (36.4-46.3) fL RDW Coeff of Patti (11.5-14.5) % Plt Count (130-400) K/uL MPV (9.4-12.3) fL Immature Gran % (Auto) % Neut % (Auto) % Lymph % (Auto) % [place] % (Auto) % Eos % (Auto) % Baso % (Auto) % Neut # (Auto) (1.4-6.5) K/uL Lymph # (Auto) (1.2-3.4) K/uL [place] # (Auto) (0.24-0.82) K/uL Eos # (Auto) (0-0.50) K/uL Baso # (Auto) (0-0.2) K/uL Immature Gran # (Auto) (0.00-0.02) K/uL PT (9.0-12.0) Seconds INR (0.9-1.1) Sodium 136 (136-145) mmol/L Potassium 3.8 (3.5-5.1) mmol/L Chloride 99 (98-107) mmol/L Carbon Dioxide 31 (21-32) mmol/L Anion Gap 6 (3-11) BUN 23 (6-23) mg/dl Creatinine 1.26 H (0.6-1.2) mg/dl Est Cr Clr Drug Dosing 38.2 ml/min Est GFR ( Amer) 44.7 ml/min Est GFR (Non-Af Amer) 38.5 ml/min BUN/Creatinine Ratio 18.3 (10-20) Glucose 148 H (70-99(Fasting)) mg/dl Lactate 1.8 (0.4-2.0) mmol/L Calcium 10.7 H (8.5-10.1) mg/dl Magnesium 2.2 (1.7-2.4) mg/dl Total Bilirubin 0.8 (0.2-1.0) mg/dl AST 16 (13-39) U/L ALT 10 (7-52) U/L Alkaline Phosphatase 66 (34-104) U/L Troponin I High Sens 22.4 H (0-14) pg/ml B-Natriuretic Peptide 346 H (0-100) pg/ml Total Protein 7.0 (6.0-8.3) gm/dl Albumin 4.2 (3.4-5.0) gm/dl Globulin 2.8 (2.5-4.0) gm/dl Albumin/Globulin Ratio 1.5 (0.9-2) Procalcitonin (0-0.5) ng/ml TSH (0.300-4.500) uIu/ml Lyme Disease IgG Ab (Negative) Lyme Disease IgM Ab (Negative) SARS-CoV-2, RNA, NAAT (NEGATIVE) 03/31/22 03/31/22 Range/Units 16:05 16:05 WBC (4.8-10.8) K/ul RBC (3.93-5.22) M/uL Hgb (12.0-16.0) g/dl Hct (34.1-44.9) % MCV (80.0-100.0) fL MCH (25.0-34.0) pg MCHC (32.0-36.0) g/dL RDW Std Deviation (36.4-46.3) fL RDW Coeff of Patti (11.5-14.5) % Plt Count (130-400) K/uL MPV (9.4-12.3) fL Immature Gran % (Auto) % Neut % (Auto) % Lymph % (Auto) % [place] % (Auto) % Eos % (Auto) % Baso % (Auto) % Neut # (Auto) (1.4-6.5) K/uL Lymph # (Auto) (1.2-3.4) K/uL [place] # (Auto) (0.24-0.82) K/uL Eos # (Auto) (0-0.50) K/uL Baso # (Auto) (0-0.2) K/uL Immature Gran # (Auto) (0.00-0.02) K/uL PT (9.0-12.0) Seconds INR (0.9-1.1) Sodium (136-145) mmol/L Potassium (3.5-5.1) mmol/L Chloride (98-107) mmol/L Carbon Dioxide (21-32) mmol/L Anion Gap (3-11) BUN (6-23) mg/dl Creatinine (0.6-1.2) mg/dl Est Cr Clr Drug Dosing ml/min Est GFR ( Amer) ml/min Est GFR (Non-Af Amer) ml/min BUN/Creatinine Ratio (10-20) Glucose (70-99(Fasting)) mg/dl Lactate (0.4-2.0) mmol/L Calcium (8.5-10.1) mg/dl Magnesium (1.7-2.4) mg/dl Total Bilirubin (0.2-1.0) mg/dl AST (13-39) U/L ALT (7-52) U/L Alkaline Phosphatase (34-104) U/L Troponin I High Sens (0-14) pg/ml B-Natriuretic Peptide (0-100) pg/ml Total Protein (6.0-8.3) gm/dl Albumin (3.4-5.0) gm/dl Globulin (2.5-4.0) gm/dl Albumin/Globulin Ratio (0.9-2) Procalcitonin < 0.05 (0-0.5) ng/ml TSH 3.502 (0.300-4.500) uIu/ml Lyme Disease IgG Ab Negative (Negative) Lyme Disease IgM Ab Negative (Negative) SARS-CoV-2, RNA, NAAT (NEGATIVE) Imaging Data Radiologist's Impression: Chest X-Ray 03/31/22 15:34 XR chest 1V portable HISTORY: 86 years-old Female weakness, sob acute weakness with shortness of breath COMPARISON: Chest radiograph 04/01/2021 TECHNIQUE: Portable AP view of the chest FINDINGS: Cardiac silhouette is enlarged. Prior median sternotomy with cardiac valvular prosthesis. Left subclavian pacer. Atherosclerosis of the aorta. No pneumothorax. Eventration right hemidiaphragm. Surgical clips of the left axilla. Chronic interstitial coarsening. IMPRESSION: Cardiomegaly without acute process. ACT 112: Negative or not required by law. The above report was generated using voice recognition software. It may contain grammatical, syntax or spelling errors. Electronically signed by: Talat Hawley M.D. 03/31/2022 4:06 PM Discharge Plan Visit Data Chief Complaint: Shortness of Breath/Dyspnea Stated Complaint: SOB ED Provider: Juan Manuel Cadet Discharge Problem: CHF (congestive heart failure), BOWMAN (dyspnea on exertion), Hypoxia Patient Disposition: Being Evaluated by Hospitalist Forms Stand Alone Forms: Keep[employer] Prescriptions Prescriptions: No Action (DME) FreeStyle Shannan 14 Day Sensor Kit See Rx Instructions .ROUTE .MEDSUPPLY Qty: 1 0RF Rx Instructions: As directed (DME) FreeStyle Shannan 14 Day [place] Misc See Rx Instructions .ROUTE .MEDSUPPLY Qty: 1 0RF Rx Instructions: As directed (DME) lancets [Accu-Chek Softclix Lancets] Misc See Rx Instructions .ROUTE .MEDSUPPLY Qty: 200 5RF Rx Instructions: test twice daily; dx code-E11.9 levothyroxine 125 mcg tablet 125 mcg PO DAILY Qty: 90 3RF Basaglar KwikPen U-100 Insulin 100 unit/mL (3 mL) insulin pen 30 unit SQ QAM Qty: 15 6RF furosemide 40 mg tablet 80 mg PO DAILY Qty: 180 3RF metoprolol succinate 100 mg tablet extended release 24 hr 100 mg PO DAILY Qty: 90 3RF (DME) pen needle, diabetic [BD Ultra-Fine Short Pen Needle] 31 gauge x 5/16" needle See Dose Instructions .ROUTE .MEDSUPPLY Qty: 100 1RF Rx Instructions: Use to inject once daily ascorbic acid (vitamin C) 100 mg tablet 100 mg PO DAILY cholecalciferol (vitamin D3) 25 mcg (1,000 unit) tablet 25 mcg PO DAILY calcium carbonate-vitamin D3 [Calcium 600 + D(3)] 600 mg(1,500mg) -200 unit Tablet 1 tab PO DAILY exxnbnqwpxkd-wuxkwrqq-xudcpo Tablet 1 tab PO DAILY pravastatin 40 mg tablet 40 mg PO QPM Rx Instructions: take 1 tablet by mouth every evening Xarelto 15 mg tablet 15 mg PO DAILY Rx Instructions: take 1 tablet by mouth once daily metformin 1,000 mg tablet 1,000 mg PO BID Rx Instructions: take 1 tablet by mouth twice a day Referrals Referrals: Nu Castro MD [Primary Care Provider] - : CHF (congestive heart failure) Qualifiers: Heart failure type: unspecified Heart failure chronicity: acute on chronic Qualified Code(s): I50.9 - Heart failure, unspecified
--- NOTE | 2022-03-31 16:08 | XRay Report ---
XR chest 1V portable HISTORY: 86 years-old Female weakness, sob acute weakness with shortness of breath COMPARISON: Chest radiograph 04/01/2021 TECHNIQUE: Portable AP view of the chest FINDINGS: Cardiac silhouette is enlarged. Prior median sternotomy with cardiac valvular prosthesis. Left subcla vian pacer. Atherosclerosis of the aorta. No pneumothorax. Eventration right hemidiaphragm. Surgical clips of the left axilla. Chronic interstitial coarsening. IMPRESSION: Cardiomegaly without acute process. ACT 112: Negative or not required by law. The above report was generated using voice recognition software. It may contain grammatical, syntax o r spelling errors. Electronically signed by: Talat Hawley M.D. 03/31/2022 4:06 PM
[2022-03-31 16:19] LABS: Hematocrit (blood only) 37.8 % (34.1-44.9); Hemoglobin 12.8 g/dl (12.0-16.0); Mean Corpuscular Hemoglobin 31.4 pg (25.0-34.0); Mean Corpuscular Hgb Conc 33.9 g/dL (32.0-36.0); Mean Corpuscular Volume 92.6 fL (80.0-100.0); Mean Platelet Volume 9.7 fL (9.4-12.3); Platelet Count 141 K/uL (130-400); RDW Coefficient of Variation 13.7 % (11.5-14.5); RDW Standard Deviation 46.6 fL (36.4-46.3); Red Blood Count 4.08 M/uL (3.93-5.22); White Blood Count 7.83 K/ul (4.8-10.8)
[2022-03-31 16:27] LABS: INR 1.1 (0.9-1.1); Prothrombin Time 11.9 Seconds (9.0-12.0)
[2022-03-31 16:33] LABS: Basophils # (auto) 0.02 K/uL (0-0.2); Basophils % (auto) 0.3 %; Eosinophils # (auto) 0.33 K/uL (0-0.50); Eosinophils % (auto) 4.2 %; Immature Granulocytes # (auto) 0.04 K/uL (0.00-0.02); Immature Granulocytes % (auto) 0.5 %; Lymphocytes # (auto) 1.65 K/uL (1.2-3.4); Lymphocytes % (auto) 21.1 %; Monocytes # (auto) 0.63 K/uL (0.24-0.82); Neutrophils # (auto) 5.16 K/uL (1.4-6.5); Neutrophils % (auto) 65.9 %
[2022-03-31 16:45] LABS: Albumin Globulin Ratio 1.5 (0.9-2); Albumin Level 4.2 gm/dl (3.4-5.0); BUN Creatinine Ratio 18.3 (10-20); Bilirubin,Total 0.8 mg/dl (0.2-1.0); Calcium 10.7 mg/dl (8.5-10.1); Creatinine Clr Calc Pharmacy 38.2 ml/min; Est GFR (African American) 44.7 ml/min; Est GFR (Non-African American) 38.5 ml/min; Globulin 2.8 gm/dl (2.5-4.0); Magnesium 2.2 mg/dl (1.7-2.4); Potassium 3.8 mmol/L (3.5-5.1)
[2022-03-31 16:48] LABS: Troponin I High Sensitivity 22.4 pg/ml (0-14)
[2022-03-31 17:02] LABS: Procalcitonin < 0.05 ng/ml (0-0.5)
[2022-03-31 17:07] LABS: Lyme Ab IgG w/WB Rflx Negative (Negative); Lyme Ab IgM w/WB Rflx Negative (Negative)
[2022-03-31] MEDS ORDERED: FUROSEMIDE 40 MG/4 ML VIAL IV ONE (17:08)
--- NOTE | 2022-03-31 17:15 | History & Physical Report ---
Date of Service March 31, 2022 Assessment & Plan (1) CHF (congestive heart failure): Plan: - Appears clinically volume overloaded, hypoxic, up 6 lbs from dry weight (197lbs), BNP 346. - 80 mg IV Lasix given in ED; continue 80 mg IV daily. - Home Lasix dosing is 80 mg PO daily with additional 80 mg for weight > 200 lbs. - Strict I & Os. - Daily standing weights. - Low sodium/diabetic diet. - Will obtain echo tomorrow, and she is scheduled for this for surveillance of her aortic stenosis. - Echo tomorrow. - Monitor renal function with diuresis, volume status in setting of severe restenosis of AVR. (2) Acute respiratory failure with hypoxia: Plan: - Secondary to CHF exacerbation. Pro-Gordon negative, no leukocytosis, no evidence for pneumonia on CXR. (3) Severe aortic stenosis: Plan: - S/p AVR in 2009, with significant restenosis in 2018. - Echo last March with EF 50 to 55%, well-seated prosthetic aortic valve. - Repeat echo while admitted as she is due for this. (4) Atrial fibrillation with normal ventricular rate: Plan: - Paced rhythm, continue Xarelto 15 mg daily, metoprolol 100 mg daily. (5) Type 2 diabetes mellitus treated with insulin: Plan: - Continue home dose of 30 units glargine in AM, as well as accuchekc ACHS with SSI - CF 45, carb ratio 15 - A1c in October 6.3%, acceptable. - Hold home metformin. (6) CAD (coronary artery disease): Plan: - Continue metoprolol, statin. - Updating echo as above. - No chest pain. - Trop likely mildly elevated in setting of CHF, will trend overnight. EKG w ithout evidence of ischemia or infarct. - EKG with any new chest pain. (7) Pacemaker: Plan: - In 2013, due to sick sinus syndrome. (8) Hypertension: Plan: - Controlled with metformin for A. fib, Lasix for CHF. - P.o. Lasix held for IV formulation. (9) Hyperlipidemia: Plan: - Continue present 40 mg at night (10) Hypothyroidism: Plan: - Continue levothyroxine 25 mcg daily. - TSH 3.5. Plan - Admit to medicine w/ telemetry. - SCDs and Xarelto for DVT PPx. - Full code. History of Present Illness Chief Complaint: Shortness of breath, weight gain over the past week Primary Care Provider: Nu Castro MD Temi Childers is an 86 y/o female with a past medical history significant for aortic stenosis s/p AVR and subsequent restenosis, A. fib on Xarelto, pacemaker placed in 2013 due to sick sinus syndrome, CAD, hypertension, hyperlipidemia, DM2, and hypothyroidism who presents to the ED upon referral from her PCP due to acute shortness of breath. Patient reportedly been more short of breath with activities last several days and some weight gain. Shortness of breath was initially only with activity, worsened with lying flat, however it progressed to be present even at rest now. Reports subjective weight gain over the past week and swelling in her legs, however no chest pain, palpitations, productive cough. She reports compliance with her Lasix, as well as other medications and a low- sodium diet. She has an 8 ounce glass that she feels with water 45 times a day. In ED, SPO2 90% at rest, however with ambulation to bathroom desatted down to 83%, now on 3 L NC. Otherwise mildly hypertensive 150/61, vital signs stable. Labs remarkable for BNP of 346, hs trop 22.4, creatinine 1.26, patient baseline. Without leukocytosis, Pro-Gordon <0.05, lactate 1.8. COVID negative. Glucose slightly elevated 148. CXR shows cardiomegaly, no acute process. She did receive 80 mg IV in the ED. Allergies Allergy/AdvReac Type Severity Reaction Status Date / Time oxycodone Allergy Intermediate HIVES Verified 03/31/22 14:10 propoxyphene Allergy Intermediate RASH Verified 03/31/22 14:10 lisinopril Allergy Unknown patient Verified 03/31/22 14:10 does not remember Home Medications Medication Instructions Recorded Confirmed Type ascorbic acid (vitamin C) 100 mg 100 mg PO DAILY 06/10/19 03/31/22 History tablet cholecalciferol (vitamin D3) 25 25 mcg PO DAILY 06/10/19 03/31/22 History mcg (1,000 unit) tablet flash glucose scanning reader #1 ea 02/15/20 03/31/22 Rx (FreeStyle Shannan 14 Day Henning) flash glucose sensor (FreeStyle #1 ea 02/15/20 03/31/22 Rx Shannan 14 Day Sensor kit) calcium carbonate 600 mg-vitamin 1 tab PO DAILY 04/22/20 03/31/22 History D3 5 mcg (200 unit) tablet (Calcium 600 + D(3)) [id number] tablet 1 tab PO DAILY 04/22/20 03/31/22 History lancets (Accu-Chek Softclix #200 ea 06/02/20 03/31/22 Rx Lancets) levothyroxine 125 mcg tablet 125 mcg PO DAILY Hypothyroidism 04/27/21 03/31/22 Rx #90 tabs insulin glargine 100 unit/mL (3 30 unit (0.3 mL) subcut QAM #15 mL 06/24/21 03/31/22 Rx mL) subcutaneous pen (Basaglar KwikPen U-100 Insulin) furosemide 40 mg tablet 80 mg PO DAILY #180 tabs 08/08/21 03/31/22 Rx metoprolol succinate 100 mg 100 mg PO DAILY #90 tabs 01/30/22 03/31/22 Rx tablet,extended release 24 hr pen needle, diabetic 31 gauge x #100 ea 02/02/22 03/31/22 Rx 5/16" (BD Ultra-Fine Short Pen Needle) metformin 1,000 mg tablet 1,000 mg PO BID 03/31/22 03/31/22 History pravastatin 40 mg tablet 40 mg PO QPM 03/31/22 03/31/22 History rivaroxaban 15 mg tablet (Xarelto) 15 mg PO DAILY 03/31/22 03/31/22 History Past Med/Surg History Medical History Atrial fibrillation with normal ventricular rate Cholelithiasis Diabetes DVT of lower extremity (deep venous thrombosis) History of cardioversion HX: breast cancer Hypertension Hypothyroidism Pneumonia Surgical History H/O aortic valve replacement History of hysterectomy Knee joint replacement status S/P breast lumpectomy S/P cardiac catheterization S/P rotator cuff repair S/P umbilical hernia repair, follow-up exam Family History Mother Myocardial infarction Cardiac disorder Brother Myocardial infarction Denies family history of Colon cancer Ovarian cancer Prostate cancer Breast cancer Social History Smoking Status: Former smoker Age Quit Using Tobacco: 31; Second Hand Exposure: No; Do You Dip or Chew Tobacco: No; Tobacco Cessation Education Requested by Patient: No Hx Alcohol Use: No Hx Substance Use: No Preferred Language: Belarusian Communication Ability: Effective Visual Impairment: No Limitations Hearing Ability: Hard of Hearing [employer] Exchange Service Adviser Required: No Beliefs That Will Affect Care: None marital status: / Current Living Situation: Alone Current Living Situation Comment: Home alone in a two story, only uses first level, daughter provides food current occupational status: retired Other Information That Helps Us Care for You: No Feels Safe at Home: Yes Safety Concerns: Feels Safe At This Time Childhood Exposure to Second-Hand Smoke: No Dental Care, Regularly: No Physical Activity Frequency: Does not Exercise Seatbelt Use: always Sunscreen Use: Yes Assistive Devices: Cane Assistive Devices Comment: Has no cane at her bedside Review of Systems Review of Systems: Constitutional: Subjective weight gain, unable to estimate how much; no fever/chills, weakness, fatigue, myalgias, anorexia, night sweats Eyes: No diplopia, no worsening or blurred vision ENT: normal hearing, no trouble swallowing Respiratory: Progressive shortness of breath over the past week, initially just with activity and worse with lying flat, now at rest Cardiovascular: No chest pain, tightness or palpitations Abdomen: No pain, nausea, vomiting, diarrhea or constipation : Denies dysuria, hematuria, increased urgency/frequency, urinary retention Musculoskeletal: No joint pain, calf pain, swelling Neurologic: No weakness, numbness/tingling, or balance problems Psychiatric: No anxiety or depression Skin: No rash or itch Physical Exam Physical Exam: General: awake, alert, no apparent distress Head: Normocephalic, atraumatic ENT: PERRL, EOMI, no pharyngeal exudate, mucous membranes moist Chest: Diminished breath sounds bibasilar lung corrales, breathing comfortably on nasal cannula; otherwise clear to auscultation Cardiac: JVD appreciated; Regular rate and rhythm, no murmur, normal peripheral pulses, good capillary refill Abdominal: NABS x 4 quadrants, soft, nontender to palpation, no rebound, guard ing or tenderness Extremities: Mild bilateral lower extremity swelling; otherwise normal inspection, or erythema, calfs nontender to palpation Psych: Normal mood and affect Neuro: AAO x 3, strength intact bilaterally and rated 5/5, no motor deficits, speech is clear, no peripheral sensory deficits Skin: no rash or erythema Results & Data Results & Data ([facility]) Vital Signs (Past 12 Hours) Vital Signs Temp Pulse Resp BP Pulse Ox O2 Del Method O2 Flow Rate 03/31/22 16:35 Room Air, Other 3 03/31/22 15:58 Room Air 03/31/22 16:36 83 L Room Air, Other 03/31/22 15:45 60 20 Room Air 03/31/22 15:38 36.4 C L 64 20 150/61 H 92 Room Air Laboratory Results Abnormal lab results 03/31/22 03/31/22 03/31/22 Range/Units 16:05 16:05 16:05 RDW Std Deviation 46.6 H (36.4-46.3) fL Immature Gran # (Auto) 0.04 H (0.00-0.02) K/uL Creatinine 1.26 H (0.6-1.2) mg/dl Glucose 148 H (70-99(Fasting)) mg/dl Calcium 10.7 H (8.5-10.1) mg/dl Troponin I High Sens 22.4 H (0-14) pg/ml B-Natriuretic Peptide 346 H (0-100) pg/ml Diagnostic Findings Chest X-Ray 03/31/22 15:34 XR chest 1V portable HISTORY: 86 years-old Female weakness, sob acute weakness with shortness of breath COMPARISON: Chest radiograph 04/01/2021 TECHNIQUE: Portable AP view of the chest FINDINGS: Cardiac silhouette is enlarged. Prior median sternotomy with cardiac valvular prosthesis. Left subclavian pacer. Atherosclerosis of the aorta. No pneumothorax. Eventration right hemidiaphragm. Surgical clips of the left axilla. Chronic interstitial coarsening. IMPRESSION: Cardiomegaly without acute process. ACT 112: Negative or not required by law. The above report was generated using voice recognition software. It may contain grammatical, syntax or spelling errors. Electronically signed by: Talat Hawley M.D. 03/31/2022 4:06 PM ECG Additional Comments: AV dual-paced rhythm with prolonged AV conduction Abnormal ECG When compared with ECG of 01-APR-2021 14:55, Vent. rate has decreased BY 6 BPM. Code Status & VTE Plan Code Status Full Code. Supervising Physician Co-Signing Physician Notes Patient seen and examined, chart reviewed, case discussed with Alba Sol PA-C and I agree with the assessment and plan as above except as otherwise noted Labs and images reviewed Temi is a 86-year-old female with a past medical history of CHF, CAD, aortic valve replacement, A. fib on Xarelto, hyperlipidemia, hypothyroidism, and type 2 diabetes mellitus who presents with shortness of breath and hypoxia on exertion. Symptoms have been present for several days, are improved by rest. She has had a recent increase in her weight. CXR with cardiomegaly, EKG AV paced rhythm without acute findings of ischemia and similar compared to 2020. QTC is prolonged at 522. Did receive IV Lasix in the emergency department. At bedside she has bibasilar crackles, breathing is comfortable on nasal cannula. Regular rate and rhythm. No acute distress Hypoxic respiratory failure with ambulation 2/2 acute on chronic CHF with mildly reduced ejection fraction Procalcitonin normal, no signs of pneumonia BNP mildly elevated to 346 Prior dry weight of 197 pounds. Home dose of Lasix 80 mg daily with an additional dose if weight is over 200 TTE 03/2021: EF 50-55%, LV SF normal, no regional wall motion abnormalities, mild concentric LVH, prosthetic aortic valve is well-seated with abnormal g radient. Was pending a outpatient repeat echo prior to April for follow-up of her prosthetic aortic valve and will obtain as inpatient History of pacemaker last interrogated 10/2021. No ventricle dysrhythmia appreciated. That had some adjustments for noise, not A. fib. Received Lasix 80 mg IV x1 in ER Continue Lasix 80 daily Troponin mildly elevated to 22.4. 2-hour repeat pending, no acute ST segment changes on EKG. No chest pain/shortness of breath at rest. 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 Continue Xarelto. Continue metoprolol Hypertension: Continue metoprolol Hypothyroidism: TSH pending. Continue Synthroid Hyperlipidemia: Continue pravastatin Hypercalcemia: Corrected calcium for albumin 10.5, upper limit of normal. PTH pending PG Care Time/CCT Total # of Minutes Spent Total Time Spent with Patient: Total time spent is greater than 50% in coordination of care (as documented) at patient's floor/unit and/or counseling patient: Coding Level of Care Code 16663 Initial Inpt Care Lvl 2 Diagnoses CHF (congestive heart failure) I50.9 Heart failure chronicity: acute on chronic Heart failure type: unspecified Acute respiratory failure with hypoxia J96.01 Severe aortic stenosis I35.0 Atrial fibrillation with normal ventricular rate I48.91 Type 2 diabetes mellitus treated with insulin E11.9; Z79.4 CAD (coronary artery disease) I25.10 Associated angina: without angina Coronary Disease-Associated Artery/Lesion type: [place] artery [place] vs. transplanted heart: [place] heart Pacemaker Z95.0 Hypertension I10 Hypertension type: essential hypertension Hyperlipidemia E78.5 Hyperlipidemia type: unspecified Hypothyroidism E03.9 Hypothyroidism type: unspecified (1) CAD (coronary artery disease) Associated angina: without angina Coronary Disease-Associated Artery/Lesion type: [place] artery [place] vs. transplanted heart: [place] heart Qualified Code(s): I25.10 - Atherosclerotic heart disease of [place] coronary artery without angina pectoris (2) CHF (congestive heart failure) Heart failure chronicity: acute on chronic Heart failure type: unspecified Qualified Code(s): I50.9 - Heart failure, unspecified (3) Hyperlipidemia Hyperlipidemia type: unspecified Qualified Code(s): E78.5 - Hyperlipidemia, unspecified (4) Hypothyroidism Hypothyroidism type: unspecified Qualified Code(s): E03.9 - Hypothyroidism, unspecified (5) Hypertension Hypertension type: essential hypertension Qualified Code(s): I10 - Essential (primary) hypertension
[2022-03-31] MEDS ORDERED: ACETAMINOPHEN 325 MG TAB PO PRN (19:38)
[2022-03-31] MEDS ORDERED: GLUCOSE 10 TAB/TUBE PO PRN (19:38)
[2022-03-31] MEDS ORDERED: POLYETHYLENE (MIRALAX) 17 GM PACK PO PRN (19:38)
[2022-03-31] MEDS ORDERED: CARBOHYDRATES FOR HYPOGLYCEMIA PO PRN (19:38)
[2022-03-31] MEDS ORDERED: GLUCAGON FOR INJ 1 MG VIAL SQ PRN (19:38)
[2022-03-31] MEDS ORDERED: DEXTROSE 50% 50 ML SYRINGE IV PRN (19:38)
[2022-03-31] MEDS ORDERED: ONDANSETRON INJ 2 MG/ML 2 ML VIAL IV PRN (19:38)
[2022-03-31] MEDS ORDERED: GLUCOSE 40% GEL 15 GM TUBE PO PRN (19:38)
[2022-03-31 21:53] LABS: Appearance Urine Clear (Clear); Bilirubin Urine Negative (Negative); Blood Urine Negative (Negative); Color Urine Yellow; Glucose Urine UA Negative (Negative); Ketones Urine Negative (Negative); Leukocyte Esterase Urine Negative (Negative); Nitrite Urine Negative (Negative); Protein Urine Negative (Negative); Specific Gravity Urine 1.006 (1.000-1.030); Urobilinogen Urine Negative (Negative); pH Urine 7.5 (4.5-7.5)
[2022-03-31] MEDS: INSULIN ASPART PER UNIT SC SCH (21:54)
[2022-03-31] MEDS: PRAVASTATIN SOD 40 MG TAB PO SCH (21:58)
[2022-04-01] MEDS: LEVOTHYROXINE SODIUM 125 MCG TABLET PO SCH (05:43)
[2022-04-01 07:20] LABS: BUN Creatinine Ratio 19.5 (10-20); Calcium 9.8 mg/dl (8.5-10.1); Creatinine Clr Calc Pharmacy 37.6 ml/min; Est GFR (Non-African American) 39.7 ml/min; Magnesium 2.2 mg/dl (1.7-2.4); Potassium 3.6 mmol/L (3.5-5.1)
[2022-04-01 07:23] LABS: Basophils % (auto) 0.2 %; Eosinophils # (auto) 0.25 K/uL (0-0.50); Eosinophils % (auto) 2.7 %; Hematocrit (blood only) 36.8 % (34.1-44.9); Hemoglobin 12.6 g/dl (12.0-16.0); Immature Granulocytes % (auto) 0.2 %; Lymphocytes # (auto) 1.59 K/uL (1.2-3.4); Lymphocytes % (auto) 17.2 %; Mean Corpuscular Hemoglobin 31.3 pg (25.0-34.0); Mean Corpuscular Hgb Conc 34.2 g/dL (32.0-36.0); Mean Corpuscular Volume 91.5 fL (80.0-100.0); Mean Platelet Volume 9.9 fL (9.4-12.3); Monocytes % (auto) 7.6 %; Neutrophils # (auto) 6.68 K/uL (1.4-6.5); Neutrophils % (auto) 72.1 %; Platelet Count 140 K/uL (130-400); RDW Standard Deviation 47.4 fL (36.4-46.3); Red Blood Count 4.02 M/uL (3.93-5.22); White Blood Count 9.26 K/ul (4.8-10.8)
[2022-04-01 07:24] LABS: Basophils # (auto) 0.02 K/uL (0-0.2); Immature Granulocytes # (auto) 0.02 K/uL (0.00-0.02)
[2022-04-01] MEDS: CALCIUM CARBONATE 1250MG TAB PO SCH (08:54)
[2022-04-01] MEDS: RIVAROXABAN 15 MG TAB PO SCH (08:54)
[2022-04-01] MEDS: CHOLECALCIFEROL 1,000 UNITS 25 MCG TAB PO SCH (08:54)
[2022-04-01] MEDS: CHOLECALCIFEROL 400 UNITS 10 MCG TAB PO SCH (08:54)
[2022-04-01] MEDS: METOPROLOL SUCC 50MG EXT REL TAB PO SCH (08:54)
[2022-04-01] MEDS: INSULIN ASPART PER UNIT SC SCH ×4 (08:55→20:36)
[2022-04-01] MEDS: FUROSEMIDE 40 MG/4 ML VIAL IV SCH (08:55)
[2022-04-01] MEDS: LANTUS PER UNIT CHARGE SQ SCH (08:56)
[2022-04-01] MEDS ORDERED: NON-FORMULARY MEDICATION (Ascorbic Acid (Vitamin C) 100 mg tablet) PO SCH (09:00)
--- NOTE | 2022-04-01 14:29 | XCELERA ---
[id number] \\[id number]___[id number]
--- NOTE | 2022-04-01 14:35 | Hospitalist Progress Note ---
Date of Service April 01, 2022 Assessment & Plan (1) CHF (congestive heart failure): Plan: - Appears clinically volume overloaded, hypoxic, up 6 lbs from dry weight (1 97lbs), BNP 346. - 80 mg IV Lasix given in ED; continue 80 mg IV daily. - Home Lasix dosing is 80 mg PO daily with additional 80 mg for weight > 200 lbs. - Strict I & Os (clearly not being accurately documented) - Daily standing weights. - Low sodium/diabetic diet. Fluid restrict to 1800 cc / day - Will obtain echo, and she is scheduled for this for surveillance of her aortic stenosis. - Monitor renal function with diuresis, volume status in setting of severe restenosis of AVR. - Uncertain if echo completed today, will reach out to cardiac imaging if not on chart by tomorrow - Per documentation dry weight is 197 and currently her weight of 88.6 kg puts her at 194 lb but still requiring O2 - Continue diuresis for another 24 hours but watch BP closely in setting of severe (2) Acute respiratory failure with hypoxia: Plan: - Secondary to CHF exacerbation. Pro-Gordon negative, no leukocytosis, no evidence for pneumonia on CXR. - Continue diuresis and wean O2 as able - Two-step demonstrated she continues to desaturate with ambulation (down to 86%) - Not normally on home O2 (3) Severe aortic stenosis: Plan: - S/p AVR in 2009, with significant restenosis in 2018. - Echo last March with EF 50 to 55%, well-seated prosthetic aortic valve. - Repeat echo while admitted as she is due for this. (4) Atrial fibrillation with normal ventricular rate: Plan: - Paced rhythm, continue Xarelto 15 mg daily, metoprolol 100 mg daily. (5) Type 2 diabetes mellitus treated with insulin: Plan: - Continue home dose of 30 units glargine in AM, as well as accuchekc ACHS with SSI - CF 45, carb ratio 15 - A1c in October 6.3%, acceptable. - Hold home metformin. (6) CAD (coronary artery disease): Plan: - Continue metoprolol, statin. - Updating echo as above. - No chest pain. - Trop likely mildly elevated in setting of CHF, will trend overnight. EKG without evidence of ischemia or infarct. - EKG with any new chest pain. (7) Pacemaker: Plan: - In 2013, due to sick sinus syndrome. (8) Hypertension: Plan: - Controlled with metformin for A. fib, Lasix for CHF. - P.o. Lasix held for IV formulation. (9) Hyperlipidemia: Plan: - Continue atorvastatin 40 mg at night (10) Hypothyroidism: Plan: - Continue levothyroxine 25 mcg daily. - TSH 3.5. Plan PT/OT eval. Continue diuresis. Wean O2 as able. Follow up labs in AM. D/c planning. Will discuss above with Dr. Geller. Admission and Anticipated Discharge Date Admission Date: March 31, 2022 Supervising Physician Co-Signing Physician Notes chart reviewed, bradley Avila PAC, as above Subjective Patient was seen on daily rounds this morning. She is resting comfortably in bed and offers no complaints. Reports that breathing has improved. Denies cough, or dyspnea, chest pain, n/v/d, f/c, headache, or gu symptoms. Review of Systems Review of Systems: All systems reviewed and are unremarkable except as noted in HPI and below. Denies fever, chills, fatigue, headache, nasal congestion, sore throat, cough, chest pain, shortness of breath, palpitations, orthopnea, PND, abdominal pain, n/v/d, constipation, dysuria, hematuria, frequency, back pain, joint pain or swelling, easy bruising or bleeding, skin lesions or rashes. Physical Exam Physical Exam: GENERAL: 86 yo Well-developed, well-nourished elderly WF. NAD. LUNGS: Clear to auscultation bilaterally. No W/R/R. CARDIOVASCULAR: Regular rate and rhythm w/ 4/6 THAO. ABDOMEN: Soft, non-tender and non-distended. BS normoactive x 4 quad. EXTREMITIES: Trace edema. Non-tender. Peripheral pulses +2/4. NEUROLOGIC: A&O x3. PSYCHIATRIC: Cooperative. Appropriate mood and affect. SKIN: Warm, dry, intact. No rashes or lesions. Results & Data Results & Data ([facility]) Vital Signs (Past 12 Hours) Vital Signs Temp Pulse Pulse Pulse Pulse Pulse Pulse 04/01/22 12:09 36.7 C 04/01/22 11:45 68 59 L 63 60 56 L 04/01/22 10:43 04/01/22 07:59 60 04/01/22 05:44 04/01/22 03:42 36.5 C Pulse Resp Resp Resp Resp Resp Resp 04/01/22 12:09 60 20 04/01/22 11:45 20 18 20 18 18 04/01/22 10:43 04/01/22 07:59 04/01/22 05:44 76 04/01/22 03:42 59 L 18 BP Pulse Ox Pulse Ox Pulse Ox Pulse Ox Pulse Ox Pulse Ox 04/01/22 12:09 150/72 H 86 L 04/01/22 11:45 87 L 91 85 L 93 93 04/01/22 10:43 04/01/22 07:59 04/01/22 05:44 130/62 04/01/22 03:42 184/64 H 95 O2 Del Method O2 Flow Rate O2 Flow Rate O2 Flow Rate O2 Flow Rate 04/01/22 12:09 Room Air 04/01/22 11:45 1 2 2 04/01/22 10:43 Nasal Cannula 2 04/01/22 07:59 04/01/22 05:44 04/01/22 03:42 Nasal Cannula 3 Laboratory Results 04/01/22 06:22 04/01/22 06:22 PG Care Time/CCT Total # of Minutes Spent Total Time Spent with Patient: Total time spent is greater than 50% in coordination of care (as documented) at patient's floor/unit and/or counseling patient: Coding Level of Care Code 03306 Subseq Hosp Care Lvl 2 Diagnoses CHF (congestive heart failure) I50.9 Heart failure chronicity: acute on chronic Heart failure type: unspecified Acute respiratory failure with hypoxia J96.01 Severe aortic stenosis I35.0 Atrial fibrillation with normal ventricular rate I48.91 Type 2 diabetes mellitus treated with insulin E11.9; Z79.4 CAD (coronary artery disease) I25.10 Associated angina: without angina Coronary Disease-Associated Artery/Lesion type: [place] artery [place] vs. transplanted heart: [place] heart Pacemaker Z95.0 Hypertension I10 Hypertension type: essential hypertension Hyperlipidemia E78.5 Hyperlipidemia type: unspecified Hypothyroidism E03.9 Hypothyroidism type: unspecified (1) CAD (coronary artery disease) Associated angina: without angina Coronary Disease-Associated Artery/Lesion type: [place] artery [place] vs. transplanted heart: [place] heart Qualified Code(s): I25.10 - Atherosclerotic heart disease of [place] coronary artery without angina pectoris (2) CHF (congestive heart failure) Heart failure chronicity: acute on chronic Heart failure type: unspecified Qualified Code(s): I50.9 - Heart failure, unspecified (3) Hyperlipidemia Hyperlipidemia type: unspecified Qualified Code(s): E78.5 - Hyperlipidemia, unspecified (4) Hypothyroidism Hypothyroidism type: unspecified Qualified Code(s): E03.9 - Hypothyroidism, unspecified (5) Hypertension Hypertension type: essential hypertension Qualified Code(s): I10 - Essential (primary) hypertension
[2022-04-01] MEDS: PRAVASTATIN SOD 40 MG TAB PO SCH (20:39)
--- NOTE | 2022-04-01 22:15 | Electrocardiogram Report ---
Test Reason : Blood Pressure : / mmHG Vent. Rate : 064 BPM Atrial Rate : 043 BPM P-R Int : 254 ms QRS Dur : 196 ms QT Int : 506 ms P-R-T Axes : 000 -66 101 degrees QTc Int : 522 ms AV dual-paced rhythm with prolonged AV conduction Abnormal ECG When compared with ECG of 01-APR-2021 14:55, Vent. rate has decreased BY 6 BPM Confirmed by Garcia Alan ([id number]) on 04/01/2022 10:15:38 PM Referred By: REFERRED SELF Confirmed By:Garcia Alan
[2022-04-02] MEDS: LEVOTHYROXINE SODIUM 125 MCG TABLET PO SCH (05:33)
[2022-04-02 06:16] LABS: Basophils # (auto) 0.02 K/uL (0-0.2); Basophils % (auto) 0.2 %; Eosinophils # (auto) 0.36 K/uL (0-0.50); Eosinophils % (auto) 4.2 %; Hematocrit (blood only) 36.5 % (34.1-44.9); Hemoglobin 12.3 g/dl (12.0-16.0); Immature Granulocytes # (auto) 0.03 K/uL (0.00-0.02); Immature Granulocytes % (auto) 0.3 %; Lymphocytes # (auto) 1.97 K/uL (1.2-3.4); Lymphocytes % (auto) 22.9 %; Mean Corpuscular Hemoglobin 31.5 pg (25.0-34.0); Mean Corpuscular Hgb Conc 33.7 g/dL (32.0-36.0); Mean Corpuscular Volume 93.4 fL (80.0-100.0); Mean Platelet Volume 9.7 fL (9.4-12.3); Monocytes # (auto) 0.77 K/uL (0.24-0.82); Monocytes % (auto) 8.9 %; Neutrophils # (auto) 5.46 K/uL (1.4-6.5); Neutrophils % (auto) 63.5 %; Platelet Count 129 K/uL (130-400); RDW Coefficient of Variation 14.1 % (11.5-14.5); Red Blood Count 3.91 M/uL (3.93-5.22); White Blood Count 8.61 K/ul (4.8-10.8)
[2022-04-02 06:41] LABS: Calcium 9.9 mg/dl (8.5-10.1); Creatinine Clr Calc Pharmacy 32.7 ml/min; Est GFR (Non-African American) 33.6 ml/min; Magnesium 2.3 mg/dl (1.7-2.4); Potassium 3.8 mmol/L (3.5-5.1)
[2022-04-02] MEDS: CHOLECALCIFEROL 400 UNITS 10 MCG TAB PO SCH (08:09)
[2022-04-02] MEDS: RIVAROXABAN 15 MG TAB PO SCH (08:10)
[2022-04-02] MEDS: CALCIUM CARBONATE 1250MG TAB PO SCH (08:10)
[2022-04-02] MEDS: METOPROLOL SUCC 50MG EXT REL TAB PO SCH (08:11)
[2022-04-02] MEDS: CHOLECALCIFEROL 1,000 UNITS 25 MCG TAB PO SCH (09:25)
[2022-04-02] MEDS: FUROSEMIDE 40 MG/4 ML VIAL IV SCH (09:26)
[2022-04-02] MEDS: INSULIN ASPART PER UNIT SC SCH ×4 (09:32→22:15)
[2022-04-02] MEDS: LANTUS PER UNIT CHARGE SQ SCH (09:45)
--- NOTE | 2022-04-02 13:45 | Hospitalist Progress Note ---
Date of Service April 02, 2022 Assessment & Plan (1) Acute on chronic diastolic (congestive) heart failure: Plan: Along with valvular heart disease; also, does have some wall motion abnormalities that may be spurious (pacemaker related). Volume status much better, off oxygenswitch back to p.o. Lasix; add low-dose spironolactone, if at all might so to act as potassium sparing agent and additional diuretic with different site of action; cardiology input (2) Pulmonary HTN: Plan: Severe; likely group 2 (3) Acute respiratory failure with hypoxia: Plan: - Improved; might need repeat two-stephad desaturated prior (4) Severe aortic stenosis: Plan: - S/p AVR in 2009, with significant restenosis in 2018. - Echo last March with EF 50 to 55%, well-seated prosthetic aortic valve. -Gradient higher though appears mild changecardiology input (5) Atrial fibrillation with normal ventricular rate: Plan: - Paced rhythm, continue Xarelto 15 mg daily, metoprolol 100 mg daily. (6) Type 2 diabetes mellitus treated with insulin: Plan: - Continue home dose of 30 units glargine in AM, as well as accuchekc ACHS with SSI - CF 45, carb ratio 15 - A1c in October 6.3%, acceptable. - Hold home metformin. -Sugars reasonableno change (7) CAD (coronary artery disease): Plan: - Mild troponin elevation but flat likely low-grade demand but does have some wall motion abnormalities; lipid panel in a.m.; cardiology inputconsider low- dose aspirin in addition to current regimendid not do so as yet (8) Pacemaker: Plan: - In 2013, due to sick sinus syndrome. (9) Hypertension: Plan: - Pressures reasonableno more change at present (10) Hyperlipidemia: Plan: - Continue atorvastatin 40 mg at night (11) Hypothyroidism: Plan: - Continue levothyroxine 25 mcg daily. - TSH 3.5. Plan PT/OT eval Admission and Anticipated Discharge Date Admission Date: March 31, 2022 Subjective LABA presentation with shortness of breathdoing much better; on room air Physical Exam Physical Exam: Constitutional and general: No acute distress, looks biologic age Head and face: No puffiness, atraumatic Eyes: No scleral icterus, extraocular movements normal Neck: Supple, JVD Musculoskeletal: No acute joint swelling, no bony abnormalities Skin/dermatologic/integument: No rash, no purpura Hematologic and lymphatic: pallor none significant, no petechia Gastrointestinal/abdomen: Nondistended, soft, nonacute Neurologic: Cranial nerves intact, nonfocal Psychiatry: Awake, alert, pleasant, communicative Cardiovascular: Heart rhythm regular, no rub, ejection systolic murmur, no gallop Respiratory: Chest movements equal, no use of accessory muscles, no adventitious sounds Extremities: edema, no cyanosis Results & Data Results & Data ([facility]) Vital Signs (Past 12 Hours) Vital Signs Temp Pulse Pulse Pulse Resp BP BP 04/02/22 11:57 36.6 C 60 20 146/68 H 04/02/22 08:00 04/02/22 07:55 37.1 C 62 18 132/64 04/02/22 07:05 60 04/02/22 03:01 36.3 C L 59 L 18 138/68 Pulse Ox O2 Del Method O2 Flow Rate 04/02/22 11:57 97 Room Air 04/02/22 08:00 Room Air 04/02/22 07:55 99 Nasal Cannula 2 04/02/22 07:05 04/02/22 03:01 95 Nasal Cannula 2 Laboratory Results Laboratory Results - last 24 hr 04/01/22 04/01/22 04/02/22 16:44 20:22 05:46 WBC 8.61 RBC 3.91 L Hgb 12.3 Hct 36.5 MCV 93.4 MCH 31.5 MCHC 33.7 RDW Std Deviation 48.0 H RDW Coeff of Patti 14.1 Plt Count 129 L MPV 9.7 Immature Gran % (Auto) 0.3 Neut % (Auto) 63.5 Lymph % (Auto) 22.9 [place] % (Auto) 8.9 Eos % (Auto) 4.2 Baso % (Auto) 0.2 Neut # (Auto) 5.46 Lymph # (Auto) 1.97 [place] # (Auto) 0.77 Eos # (Auto) 0.36 Baso # (Auto) 0.02 Immature Gran # (Auto) 0.03 H Sodium Potassium Chloride Carbon Dioxide Anion Gap BUN Creatinine Est Cr Clr Drug Dosing Est GFR ( Amer) Est GFR (Non-Af Amer) BUN/Creatinine Ratio Glucose POC Glucose 103 H 147 H Calcium Magnesium 08/04/02/22 04/02/22 05:46 07:43 12:00 WBC RBC Hgb Hct MCV MCH MCHC RDW Std Deviation RDW Coeff of Patti Plt Count MPV Immature Gran % (Auto) Neut % (Auto) Lymph % (Auto) [place] % (Auto) Eos % (Auto) Baso % (Auto) Neut # (Auto) Lymph # (Auto) [place] # (Auto) Eos # (Auto) Baso # (Auto) Immature Gran # (Auto) Sodium 136 Potassium 3.8 Chloride 98 Carbon Dioxide 36 H Anion Gap 2 L BUN 31 H Creatinine 1.41 H Est Cr Clr Drug Dosing 32.7 Est GFR ( Amer) 39.0 Est GFR (Non-Af Amer) 33.6 BUN/Creatinine Ratio 22.0 H Glucose 103 H POC Glucose 115 H 119 H Calcium 9.9 Magnesium 2.3 PG Care Time/CCT Total # of Minutes Spent Total Time Spent with Patient: Total time spent is greater than 50% in coordination of care (as documented) at patient's floor/unit and/or counseling patient: Coding Level of Care Code 48322 Subseq Hosp Care Lvl 2 Diagnoses Acute on chronic diastolic (congestive) heart failure I50.33 Pulmonary HTN I27.20 Acute respiratory failure with hypoxia J96.01 Severe aortic stenosis I35.0 Atrial fibrillation with normal ventricular rate I48.91 Type 2 diabetes mellitus treated with insulin E11.9; Z79.4 CAD (coronary artery disease) I25.10 Coronary Disease-Associated Artery/Lesion type: [place] artery [place] vs. transplanted heart: [place] heart Associated angina: without angina Pacemaker Z95.0 Hypertension I10 Hypertension type: essential hypertension Hyperlipidemia E78.5 Hyperlipidemia type: unspecified Hypothyroidism E03.9 Hypothyroidism type: unspecified (1) CAD (coronary artery disease) Coronary Disease-Associated Artery/Lesion type: [place] artery [place] vs. transplanted heart: [place] heart Associated angina: without angina Qualified Code(s): I25.10 - Atherosclerotic heart disease of [place] coronary artery without angina pectoris (2) Hypertension Hypertension type: essential hypertension Qualified Code(s): I10 - Essential (primary) hypertension (3) Hyperlipidemia Hyperlipidemia type: unspecified Qualified Code(s): E78.5 - Hyperlipidemia, unspecified (4) Hypothyroidism Hypothyroidism type: unspecified Qualified Code(s): E03.9 - Hypothyroidism, unspecified
[2022-04-02] MEDS: SPIRONOLACTONE 12.5 MG TAB PO SCH (14:36)
[2022-04-02] MEDS: PRAVASTATIN SOD 40 MG TAB PO SCH (20:04)
[2022-04-03] MEDS: LEVOTHYROXINE SODIUM 125 MCG TABLET PO SCH (05:53)
[2022-04-03 07:32] LABS: BUN Creatinine Ratio 24.6 (10-20); Calcium 9.7 mg/dl (8.5-10.1); Chol HDL Ratio 3.7 (0-5); Creatinine Clr Calc Pharmacy 34.6 ml/min; Est GFR (African American) 41.5 ml/min; Est GFR (Non-African American) 35.8 ml/min; Magnesium 2.2 mg/dl (1.7-2.4); Potassium 3.5 mmol/L (3.5-5.1)
[2022-04-03] MEDS: CHOLECALCIFEROL 400 UNITS 10 MCG TAB PO SCH (08:29)
[2022-04-03] MEDS: METOPROLOL SUCC 50MG EXT REL TAB PO SCH (08:29)
[2022-04-03] MEDS: CALCIUM CARBONATE 1250MG TAB PO SCH (08:29)
[2022-04-03] MEDS: CHOLECALCIFEROL 1,000 UNITS 25 MCG TAB PO SCH (08:30)
[2022-04-03] MEDS: SPIRONOLACTONE 12.5 MG TAB PO SCH (08:30)
[2022-04-03] MEDS: RIVAROXABAN 15 MG TAB PO SCH (08:30)
[2022-04-03] MEDS: LANTUS PER UNIT CHARGE SQ SCH (08:32)
[2022-04-03] MEDS: INSULIN ASPART PER UNIT SC SCH ×2 (08:33→12:34)
[2022-04-03] MEDS ORDERED: FUROSEMIDE 80 MG TAB PO SCH (09:00)
--- NOTE | 2022-04-03 12:36 | Cardiology Consultation ---
Date of Consultation April 03, 2022 Assessment & Plan (1) Acute on chronic diastolic (congestive) heart failure: -responded to intravenous followed by oral diuretics. -appears well compensated at this time. -tolerating the addition of low-dose spironolactone without difficulty. -she follows daily weights and sliding-scale diuretics at home. -she needs to follow a low-salt diet (eats at [employer] almost daily). (2) H/O aortic valve replacement: -elevated velocities across the bioprosthetic aortic valve on current echocardiogram. -may need to start discussing the possibility of a TAVR. Will discuss this further with the patient and her daughter at our follow- up visit. (3) CAD (coronary artery disease): -nonobstructive coronary artery disease in November 2009. (4) Hypertension: -adequate control on current regimen. (5) PAF (paroxysmal atrial fibrillation): -no recent episodes of atrial fibrillation. -continue rate control and long-term anticoagulation. (6) Pacemaker: -proper function at time of interrogation in October 2021. -another pacemaker interrogation is scheduled for next month as an outpatient. History of Present Illness Attending Physician: Andre Lambert MD History of Present Illness Mrs. Childers is an 86-year-old female admitted on March 31 with acute on chronic diastolic congestive heart failure. This consultation was ordered to a ssist in her cardiac management. Of note, the patient is well known to me from today outpatient setting. She was in her usual state of health until approximately 2-3 days prior to presentation. She began to note progressive exertional dyspnea along with orthopnea. She admitted to a 6 lb weight gain over typical dry weight. She presented to the emergency room for further care. On arrival here, she was noted to be in acute CHF. She has responded well to intravenous diuretics. She has been switched over to oral diuretics. The patient admits to poor compliance with a low-salt diet. She eats at [employer] almost every day. Of note, the patient had a bioprosthetic aortic valve placed in November 2009. An echocardiogram performed in January 2019 noted increased velocities across the bioprosthetic aortic valve. The patient carries a history of paroxysmal atrial fibrillation. She was diagnosed with a sick sinus node back in May [address] [employer] dual- chamber pacer placed at that time. Her most recent interrogation was in October which noted normal function. There was no atrial fibrillation in the prior 6 months. Battery longevity was estimated 7.3 years. Currently, patient is resting comfortably in bed without complaints. Past medical and surgical history 1. Nonobstructive coronary artery disease-November 2009 2. Bioprosthetic aortic valve replacement-November 2009 3. Bioprosthetic AVR stenosis-January 2019 4. Hypertension next 5. Hypercholesterolemia 6. Paroxysmal atrial fibrillation 7. Sick sinus syndrome 8. DDD pacemaker-[employer], May 2014 9. Chronic diastolic CHF 10. Diabetes mellitus 11. Hypothyroidism 12. History of breast carcinoma 13. History of DVT 14. Hysterectomy 15. Total knee replacement 16. Rotator cuff repair Social history , lives alone Family lives close by No tobacco alcohol Family history Noncontributory Review of systems A 10 point review systems was negative except for that described above. Allergies Allergy/AdvReac Type Severity Reaction Status Date / Time oxycodone Allergy Intermediate HIVES Verified 03/31/22 14:10 propoxyphene Allergy Intermediate RASH Verified 03/31/22 14:10 lisinopril Allergy Unknown patient Verified 03/31/22 14:10 does not remember Home Medications Medication Instructions Recorded Confirmed Type ascorbic acid (vitamin C) 100 mg 100 mg PO DAILY 06/10/19 03/31/22 History tablet cholecalciferol (vitamin D3) 25 25 mcg PO DAILY 06/10/19 03/31/22 History mcg (1,000 unit) tablet flash glucose scanning reader #1 ea 02/15/20 03/31/22 Rx (FreeStyle Shannan 14 Day [place]) flash glucose sensor (FreeStyle #1 ea 02/15/20 03/31/22 Rx Shannan 14 Day Sensor kit) calcium carbonate 600 mg-vitamin 1 tab PO DAILY 04/22/20 03/31/22 History D3 5 mcg (200 unit) tablet (Calcium 600 + D(3)) fqaihhzquldm-aptitsuq-ovdufk tablet 1 tab PO DAILY 04/22/20 03/31/22 History lancets (Accu-Chek Softclix #200 ea 06/02/20 03/31/22 Rx Lancets) levothyroxine 125 mcg tablet 125 mcg PO DAILY Hypothyroidism 04/27/21 03/31/22 Rx #90 tabs insulin glargine 100 unit/mL (3 30 unit (0.3 mL) subcut QAM #15 mL 06/24/21 03/31/22 Rx mL) subcutaneous pen (Basaglar KwikPen U-100 Insulin) furosemide 40 mg tablet 80 mg PO DAILY #180 tabs 08/08/21 03/31/22 Rx metoprolol succinate 100 mg 100 mg PO DAILY #90 tabs 01/30/22 03/31/22 Rx tablet,extended release 24 hr pen needle, diabetic 31 gauge x #100 ea 02/02/22 03/31/22 Rx 5/16" (BD Ultra-Fine Short Pen Needle) metformin 1,000 mg tablet 1,000 mg PO BID 03/31/22 03/31/22 History pravastatin 40 mg tablet 40 mg PO QPM 03/31/22 03/31/22 History rivaroxaban 15 mg tablet (Xarelto) 15 mg PO DAILY 03/31/22 03/31/22 History spironolactone 25 mg tablet 12.5 mg PO DAILY #30 tabs 04/03/22 Rx Patient History Medical History Atrial fibrillation with normal ventricular rate Cholelithiasis Diabetes DVT of lower extremity (deep venous thrombosis) History of cardioversion HX: breast cancer Hypertension Hypothyroidism Pneumonia Surgical History H/O aortic valve replacement History of hysterectomy Knee joint replacement status S/P breast lumpectomy S/P cardiac catheterization S/P rotator cuff repair S/P umbilical hernia repair, follow-up exam Family History Mother Myocardial infarction Cardiac disorder Brother Myocardial infarction Denies family history of Colon cancer Ovarian cancer Prostate cancer Breast cancer Social History Smoking Status: Former smoker Age Quit Using Tobacco: 31; Second Hand Exposure: No; Hx Alcohol Use: No Hx Substance Use: No Preferred Language: Z[place]ian Communication Ability: Effective Visual Impairment: No Limitations Hearing Ability: Hard of Hearing Lane Attendant Required: No Beliefs That Will Affect Care: None marital status: / Current Living Situation: Alone Current Living Situation Comment: Home alone in a two story, only uses first level, daughter provides food current occupational status: retired Feels Safe at Home: Yes Childhood Exposure to Second-Hand Smoke: No Dental Care, Regularly: No Physical Activity Frequency: Does not Exercise Seatbelt Use: always Sunscreen Use: Yes Assistive Devices: Glasses Physical Exam Physical Exam: In general this is well-developed well-nourished white female in no acute distress. HEENT exam is negative. Neck is supple with full carotid upstrokes. No obvious bruits. No JVD. There is no thyromegaly. Cardiovascular exam reveals a regular rhythm with a normal S1 and S2. Heart sounds are crisp. Prominent S4 is noted. Lungs are clear without rales, rhonchi, or wheezes. Chest reveals a palpable pacemaker in the left subclavicular region. Abdomen is obese without bruits. Extremities reveal intact radial artery pulses bilaterally. Trace pretibial edema is noted. Results & Data ([facility]) Vital Signs (Past 12 Hours) Vital Signs Temp Pulse Pulse Pulse Pulse Pulse Pulse 04/03/22 11:34 70 73 70 70 04/03/22 11:37 04/03/22 10:55 36.6 C 70 04/03/22 09:28 72 04/03/22 08:00 36.8 C 68 04/03/22 01:51 36.8 C 70 Resp Resp Resp Resp BP BP Pulse Ox 04/03/22 11:34 15 15 14 04/03/22 11:37 04/03/22 10:55 18 139/76 94 04/03/22 09:28 04/03/22 08:00 18 114/66 95 04/03/22 01:51 20 177/95 H 96 Pulse Ox Pulse Ox Pulse Ox Pulse Ox O2 Del Method O2 Flow Rate O2 Flow Rate 04/03/22 11:34 91 87 L 94 94 1 04/03/22 11:37 Nasal Cannula 2 04/03/22 10:55 Nasal Cannula 2 04/03/22 09:28 04/03/22 08:00 Nasal Cannula 2 04/03/22 01:51 Nasal Cannula 2 Laboratory Results CBC notes hemoglobin 12.3, crit 36.5, white count 8.6, and platelet count [id number]. Electrolytes note a sodium of 136, potassium 3.5, chloride 99, bicarb 33, BUN 33, creatinine 1.34, and glucose of 108. Initial high sensitivity troponin was 22.4 with follow-up values of 24.4, 25.9, 25.3, and 21.6. BNP was elevated 346 on presentation. Diagnostic Findings Echocardiogram noted normal systolic function with ejection fraction 50-55% along severe LVH. Velocities across the bioprosthetic aortic valve her elevated at 3.8 m/sec. EKG notes AV sequential pacing. Chest x-ray notes cardiomegaly and a pacemaker on the left side. PG Care Time/CCT Total # of Minutes Spent Total Time Spent with Patient: Total time spent is greater than 50% in coordination of care (as documented) at patient's floor/unit and/or counseling patient: Coding Level of Care Code 99990 Initial Inpt Care Lvl 3 Diagnoses Acute on chronic diastolic (congestive) heart failure I50.33 H/O aortic valve replacement Z95.2 CAD (coronary artery disease) I25.10 Coronary Disease-Associated Artery/Lesion type: [place] artery [place] vs. transplanted heart: [place] heart Associated angina: without angina Hypertension I10 Hypertension type: essential hypertension PAF (paroxysmal atrial fibrillation) I48.0 Pacemaker Z95.0 (1) CAD (coronary artery disease) Coronary Disease-Associated Artery/Lesion type: [place] artery [place] vs. transplanted heart: [place] heart Associated angina: without angina Qualified Code(s): I25.10 - Atherosclerotic heart disease of [place] coronary artery without angina pectoris (2) Hypertension Hypertension type: essential hypertension Qualified Code(s): I10 - Essential (primary) hypertension
--- NOTE | 2022-04-03 15:28 | Discharge Summary ---
Date of Service April 03, 2022 Admission HPI Per Admitting Provider Temi Childers is an 86 y/o female with a past medical history significant for aortic stenosis s/p AVR and subsequent restenosis, A. fib on Xarelto, pacemaker placed in 2013 due to sick sinus syndrome, CAD, hypertension, hyperlipidemia, DM2, and hypothyroidism who presents to the ED upon referral from her PCP due to acute shortness of breath. Patient reportedly been more short of breath with activities last several days and some weight gain. Shortness of breath was initially only with activity, worsened with lying flat, however it progressed to be present even at rest now. Reports subjective weight gain over the past week and swelling in her legs, however no chest pain, palpitations, productive cough. She reports compliance with her Lasix, as well as other medications and a low- sodium diet. She has an 8 ounce glass that she feels with water 45 times a day. In ED, SPO2 90% at rest, however with ambulation to bathroom desatted down to 83%, now on 3 L NC. Otherwise mildly hypertensive 150/61, vital signs stable. Labs remarkable for BNP of 346, hs trop 22.4, creatinine 1.26, patient baseline. Without leukocytosis, Pro-Gordon <0.05, lactate 1.8. COVID negative. Glucose slightly elevated 148. CXR shows cardiomegaly, no acute process. She did receive 80 mg IV in the ED. Principal Diagnosis Acute exacerbation of diastolic CHF Discharge Exam No edema on legs. Breathing comfortably on NC O2. RRR CTA b/l Discharge Data Allergies Allergy/AdvReac Type Severity Reaction Status Date / Time oxycodone Allergy Intermediate HIVES Verified 03/31/22 14:10 propoxyphene Allergy Intermediate RASH Verified 03/31/22 14:10 lisinopril Allergy Unknown patient Verified 03/31/22 14:10 does not remember Consultations 03/31/22 17:12 ED Decision to Admit Stat 04/02/22 12:37 Consult Cardiology Routine 04/03/22 12:03 [facility] CHF Program Referral Routine Hospital Course (1) Acute on chronic diastolic (congestive) heart failure: Along with valvular heart disease; also, does have some wall motion abnormalities that may be spurious (pacemaker related). - Volume status much better on discharge. Appears to be nearly her baseline. - Switched back to home Lasix; add low-dose spironolactone on 04/02. Appears to be tolerating well. - Discharge with CHF Clinic f/u. (2) Pulmonary HTN: Severe; likely group 2 (3) Acute respiratory failure with hypoxia: - Improved - Discharged on 1L NC at rest and exertion. (4) Severe aortic stenosis: - S/p AVR in 2009, with significant restenosis in 2018. - Echo last March with EF 50 to 55%, well-seated prosthetic aortic valve. - Gradient higher though appears mild changecardiology input (5) Atrial fibrillation with normal ventricular rate: - Paced rhythm, continue Xarelto 15 mg daily, metoprolol 100 mg daily. (6) Type 2 diabetes mellitus treated with insulin: - Continue home dose of 30 units glargine in AM, as well as accuchekc ACHS with SSI - Discharged home without change. (7) CAD (coronary artery disease): - Mild troponin elevation but flat likely low-grade demand but does have some wall motion abnormalities (8) Pacemaker: - In 2013, due to sick sinus syndrome. (9) Hypertension: - Pressures reasonableno more change at present (10) Hyperlipidemia: - Continue atorvastatin 40 mg at night (11) Hypothyroidism: - Continue levothyroxine 25 mcg daily. - TSH 3.5. Plan PT/OT eval Total Time Total Time Spent Total Time Spent (In Minutes): 35 Discharge Plan Discharge Items Patient Disposition: Home - Home Health Services Reason For Visit: ACUTE ON CHRONIC CHF Discharge Diagnosis: Acute exacerbation of heart failure Activity: Resume your previous activity Non-emergency contact: Primary Care Provider Call non-emergency contact if: your symptoms worsen Follow-up/Referrals: Nu Castro MD [Primary Care Provider] - 04/12/22 12:00 pm Claudia Zuleta PA-C [Physician Justice Court Judge] - (Please see Ms. Zuleta in close follow-up for better heart failure care.) Diet: Heart Healthy Addtl Attending Provider Instructions: Ms. Childers, You were admitted to the hospital with an episode of heart failure. You had ga ined at least 6 lbs of water weight. Luckily with some increased medication to help you get that water weight off, you are doing well. You do need some home oxygen, which we are arranging. While in the hospital, we also started a new medication that will also act a water pill and help keep the fluid off. Please have your PCP or principal ios developer check your labs in a week to be sure you are doing well. Please see Ms. Zuleta in close follow-up for better heart failure care. She will help monitor your weights and help keep any extra water weight off. Pending Studies at Discharge: No Stand-Alone Forms: My [facility] [employer], Smoking Cessation Medications and DC Order Prescriptions: New spironolactone 25 mg Tablet 12.5 mg PO DAILY Qty: 30 0RF Continued (DME) FreeStyle Shannan 14 Day Sensor Kit See Rx Instructions .ROUTE .MEDSUPPLY Qty: 1 0RF Rx Instructions: As directed (DME) FreeStyle Shannan 14 Day [place] Misc See Rx Instructions .ROUTE .MEDSUPPLY Qty: 1 0RF Rx Instructions: As directed (DME) lancets [Accu-Chek Softclix Lancets] Misc See Rx Instructions .ROUTE .MEDSUPPLY Qty: 200 5RF Rx Instructions: test twice daily; dx code-E11.9 levothyroxine 125 mcg tablet 125 mcg PO DAILY Qty: 90 3RF Basaglar KwikPen U-100 Insulin 100 unit/mL (3 mL) insulin pen 30 unit SQ QAM Qty: 15 6RF furosemide 40 mg tablet 80 mg PO DAILY Qty: 180 3RF metoprolol succinate 100 mg tablet extended release 24 hr 100 mg PO DAILY Qty: 90 3RF (DME) pen needle, diabetic [BD Ultra-Fine Short Pen Needle] 31 gauge x 5/16" needle See Dose Instructions .ROUTE .MEDSUPPLY Qty: 100 1RF Rx Instructions: Use to inject once daily ascorbic acid (vitamin C) 100 mg tablet 100 mg PO DAILY cholecalciferol (vitamin D3) 25 mcg (1,000 unit) tablet 25 mcg PO DAILY calcium carbonate-vitamin D3 [Calcium 600 + D(3)] 600 mg(1,500mg) -200 unit Tablet 1 tab PO DAILY kutddqgjgbpp-laejomhf-nywkyo Tablet 1 tab PO DAILY pravastatin 40 mg tablet 40 mg PO QPM Rx Instructions: take 1 tablet by mouth every evening Xarelto 15 mg tablet 15 mg PO DAILY Rx Instructions: take 1 tablet by mouth once daily metformin 1,000 mg tablet 1,000 mg PO BID Rx Instructions: take 1 tablet by mouth twice a day Discharge Orders: Discharge Order (Routine); Ordered 04/03/22 Ordered By: Andre Lambert Admission Data Admit Date/Time: 03/31/22 17:19 Attending Provider: Andre Lambert Admit Provider: Yury Turcios Primary Care Provider: Nu Castro Other Providers: Yury Turcios ; Christian Geller ; Hernan Delaney ; Claudia Zuleta Other Interventions: Discharge Summary Assessment (RN) Last Done: 04/03/22 13:08 Coding Level of Care Code D/C DAY MANAGEMENT >30 MINS Diagnoses Acute on chronic diastolic (congestive) heart failure I50.33 Pulmonary HTN I27.20 Acute respiratory failure with hypoxia J96.01 Severe aortic stenosis I35.0 Atrial fibrillation with normal ventricular rate I48.91 Type 2 diabetes mellitus treated with insulin E11.9; Z79.4 CAD (coronary artery disease) I25.10 Coronary Disease-Associated Artery/Lesion type: [place] artery [place] vs. transplanted heart: [place] heart Associated angina: without angina Pacemaker Z95.0 Hypertension I10 Hypertension type: essential hypertension Hyperlipidemia E78.5 Hyperlipidemia type: unspecified Hypothyroidism E03.9 Hypothyroidism type: unspecified
== END 2022-04-03 14:16 | disposition home health service (06) | DRG 291 ==
LOC: ED 15:24 → SUATTDRO 17:19 → EDINP 17:19 → 2N 04-01 01:02

== ENCOUNTER 2024-01-01 23:30 | Inpatient (IN) ==
[2024-01-02 01:01] LABS: Basophils # (auto) 0.01 K/uL (0.00-0.20); Basophils % (auto) 0.1 %; Eosinophils # (auto) 0.02 K/uL (0.00-0.50); Eosinophils % (auto) 0.2 %; Hemoglobin 8.8 g/dl (12.0-16.0); Immature Granulocytes # (auto) 0.05 K/uL (0.01-0.20); Immature Granulocytes % (auto) 0.5 %; Lymphocytes # (auto) 1.49 K/uL (1.20-3.40); Lymphocytes % (auto) 13.9 %; Mean Corpuscular Hgb Conc 33.8 g/dL (32.0-36.0); Mean Corpuscular Volume 91.5 fL (80.0-100.0); Mean Platelet Volume 10.4 fL (9.4-12.4); Monocytes # (auto) 0.69 K/uL (0.11-0.59); Monocytes % (auto) 6.4 %; Neutrophils # (auto) 8.46 K/uL (1.40-6.50); Neutrophils % (auto) 78.9 %; Platelet Count 132 K/uL (130-400); RDW Coefficient of Variation 14.6 % (11.5-14.5); RDW Standard Deviation 47.8 fL (36.4-46.3); Red Blood Count 2.84 M/uL (4.20-5.40); White Blood Count 10.72 K/ul (4.8-10.8)
--- NOTE | 2024-01-02 01:16 | Emergency Department Note ---
Impression & Plan SOB (shortness of breath), CHF (congestive heart failure), BOWMAN (dyspnea on exertion), Anemia, Acute GI bleeding, Hypercalcemia, MARJ (acute kidney injury), Elevated troponin ED Provider Note NAME: GONZÁLEZ DICKENS AGE: 88 SEX: F : 1935 ARRIVES VIA: Walk-In INFORMANT: [Patient][family] ED PROVIDER(S): [Rober Matute MD] CHIEF COMPLAINT: Shortness of breath HISTORY OF PRESENT ILLNESS: The patient is an 88-year-old female with a history aortic valve disease. She has had a previous bovine replacement. The patient states that she has had several days of increasing shortness of breath. She has home O2 to use as needed and has been using this at 0.5 L. She has noticed some increasing pedal edema and this evening, could not lie flat. She was more short of breath today than yesterday. As per the family, the patient did double her Lasix for the last 2 days but she has not made more urine. There has been no fever, no chest pain. Her dyspnea is present primarily with exertion. As per the nursing staff, the patient was hypoxic in triage and they had to increase her oxygen to 2 L. PMHx/PSHx/Social Hx: See Below PHYSICAL EXAM: GENERAL: Patient is in no acute distress. HEENT: No acute trauma, normocephalic atraumatic, mucous membranes moist, no nasal congestion. NECK: No stridor, no adenopathy, no meningismus, trachea is midline. LUNGS: Diminished breath sounds with crackles at both bases, no obvious respiratory distress HEART: 3/6 systolic murmur, regular rate, occasional extra beat heard. ABDOMEN: Soft, nontender, no peritonitis. EXTREMITIES: No cyanosis, full range of motion of all the joints without pain or difficulty. Moderate bilateral pedal edema. NEUROLOGIC: Oriented x 3, no acute motor or sensory deficits, no focal weakness. SKIN: No jaundice, no diaphoresis. Pale. Rectal: Dark brown stool, heme positive. DIFFERENTIAL DIAGNOSIS: CHF, pneumonia, bronchitis, fluid overload, anemia, renal failure, among others. EMERGENCY DEPARTMENT PROCEDURES: MEDICAL DECISION MAKING: There is no leukocytosis. The patient is anemic, this is a 3 point drop for her. I did do a rectal exam, stool was dark and he clearly heme positive. There is a normal platelet count. No coagulopathy. There was some mild acute kidney injury noted with a creatinine of 2.63. BUN was elevated consistent with upper GI bleeding. Calcium was high at 12.1. Magnesium was elevated at 3. No concerning liver enzyme elevation. ECG shows a sinus rhythm, no obvious acute ST elevation. Cardiac enzyme testing x 1 is slightly elevated. This troponin elevation could be from cardiac injury or potentially mismatch from her fluid overload and renal failure. Chest x-ray shows cardiomegaly and some mild CHF. BNP was elevated consistent with fluid overload. Respiratory bio fire was negative. On exam, the patient was hypoxic without oxygen. She had pedal edema and some crackles on her lung exam. She appeared pale. Patient was given IV Lasix 80 mg. She was given IV Protonix 80 mg. An external catheter was placed to help with her diuresis. She was maintained on nasal cannula O2. She was ordered for a type and screen, blood was not given in the ED as her hemoglobin was not below 7. Patient is in need of a hospital stay. She has multiple issues found tonight that explain her dyspnea. She may in fact require a blood transfusion if her hemoglobin drops further. I did speak with the patient and her family, I spoke with case management, the on-call hospitalist was consulted. Prior/Outside records/notes reviewed: None ECG per my interpretation: Indication was shortness of breath. The ECG shows what appears to be a sinus rhythm with a left bundle branch block. There is a first-degree AV block. No acute ST elevation, no PVCs but the QTc is 479. Continuous Cardiac Monitoring per my interpretation: An order was placed for continuous cardiac monitoring. The monitor shows a rate of 71 with sinus rhythm with a first-degree block. Imaging/x-ray results per my interpretation: Chest x-ray shows cardiomegaly and some mild to moderate CHF. No pneumonia. Chronic Medical/Social conditions affecting care: Advanced age. Care/Management discussed with: Case management, the on-call hospitalist. Level of care consideration(s): After review of the information above and other included data: --I believe the patient requires escalation of care to admission Critical Care Note: I have personally spent 41 minutes of critical care time in the direct management of this patient. This includes bedside care, interpretation of diagnostic studies, and testing, discussion with consultants, patient, and family members, and other required patient management activities. This 41 minutes is in excess of all separately billable procedures. DISPOSITION: Admission Past Med/Surg History Problem List (Updated 01/02/24 @ 03:03 by Rober Matute MD) Elevated troponin (Acute) MARJ (acute kidney injury) (Acute) Hypercalcemia (Acute) Acute GI bleeding (Acute) Anemia (Acute) BOWMAN (dyspnea on exertion) (Acute) CHF (congestive heart failure) (Acute) SOB (shortness of breath) (Acute) Sensorineural hearing loss (SNHL) of right ear with restricted hearing of left ear Cognitive changes Type 2 diabetes mellitus treated with insulin (Acute) (HFpEF) heart failure with preserved ejection fraction PAF (paroxysmal atrial fibrillation) Pulmonary HTN Severe aortic stenosis Cholelithiasis Pacemaker CAD (coronary artery disease) H/O aortic valve replacement Hypertension Atrial fibrillation with normal ventricular rate (Acute) Hyperlipidemia (Acute) Hypothyroidism (Acute) Medical History History of DVT (deep vein thrombosis) Pneumonia HX: breast cancer History of cardioversion Hypothyroidism Surgical History History of hysterectomy S/P rotator cuff repair S/P cardiac catheterization S/P breast lumpectomy S/P umbilical hernia repair, follow-up exam H/O aortic valve replacement Knee joint replacement status Family History Mother Myocardial infarction Cardiac disorder Brother Myocardial infarction Denies family history of Colon cancer Ovarian cancer Prostate cancer Breast cancer Social History Smoking Status: Never smoker Age Quit Using Tobacco: 31; Second Hand Exposure: No; Do You Dip or Chew Tobacco: No; Hx Alcohol Use: No Hx Substance Use: No Preferred Language: Romansh Communication Ability: Effective Visual Impairment: No Limitations Hearing Ability: Hard of Hearing Coronary Care Unit Nurse Required: No Beliefs That Will Affect Care: None marital status: / Current Living Situation: Alone Current Living Situation Comment: Home alone in a two story, only uses first level, daughter provides food current occupational status: retired Feels Safe at Home: Yes Childhood Exposure to Second-Hand Smoke: No Diet: regular Diet Comment: regular Dental Care, Regularly: No Physical Activity Frequency: Does not Exercise Seatbelt Use: always Sunscreen Use: Yes Assistive Devices: Glasses and Walker Allergies Allergies Allergy/AdvReac Type Severity Reaction Status Date / Time oxycodone Allergy Intermediate HIVES Verified 01/02/24 01:32 propoxyphene Allergy Intermediate RASH Verified 01/02/24 01:32 lisinopril Allergy Unknown patient Verified 01/02/24 01:32 does not remember Home Meds Home Medications Medication Instructions Recorded Confirmed ascorbic acid (vitamin C) 100 mg 100 mg PO DAILY 06/10/19 01/02/24 tablet cholecalciferol (vitamin D3) 25 25 mcg PO DAILY 06/10/19 01/02/24 mcg (1,000 unit) tablet calcium carbonate 600 mg-vitamin 1 tab PO DAILY 04/22/20 01/02/24 D3 5 mcg (200 unit) tablet (Calcium 600 + D(3)) multivitamin 1 tab PO DAILY 05/25/22 01/02/24 levothyroxine 125 mcg tablet 125 mcg PO DAILYBB 01/02/24 01/02/24 metformin 1,000 mg tablet 1,000 mg PO BID 01/02/24 01/02/24 Previous Rx's Medication Instructions Recorded lancets (Accu-Chek Softclix #200 ea 06/02/20 Lancets) pen needle, diabetic 31 gauge x #100 ea 01/17/2312/26" (BD Ultra-Fine Short Pen Needle) spironolactone 25 mg tablet 12.5 mg (1/2 x 25 mg) PO DAILY #90 03/12/23 tabs furosemide 40 mg tablet 80 mg (2 x 40 mg) PO DAILY #180 05/02/23 tabs metoprolol succinate 100 mg 100 mg PO DAILY #90 tabs 05/02/23 tablet,extended release 24 hr pen needle, diabetic 31 gauge x #100 ea 05/23/2312/26" (Droplet Pen Needle) insulin glargine 100 unit/mL (3 30 unit (0.3 mL) subcut DAILY #15 08/07/23 mL) subcutaneous pen (Basaglar mL KwikPen U-100 Insulin) pravastatin 40 mg tablet 40 mg PO QPM #90 tabs 10/08/23 Results & Data (ED) Vital Signs Vital Signs - 24 hr 01/01/24 23:39 01/02/24 01:02 01/02/24 01:02 Temperature 37.2 C Temperature Source Oral Pulse Rate 81 Pulse Rate from SpO2 Sensor Pulse Rhythm Regular Pulse Strength Normal Respiratory Rate 18 Respiratory Effort / Characteristics Non-Labored Spontaneous Non-Labored Spontaneous Respiratory Depth Normal Normal Respiratory Pattern Regular Regular Blood Pressure 138/49 L Blood Pressure Mean 78 Blood Pressure Position Sitting Pulse Oximetry 96 Oxygen Delivery Method Nasal Cannula Nasal Cannula Nasal Cannula Oxygen Flow Rate 1 0.5 0.5 Sepsis Recent Fever Within 48 Hours No Sepsis New/Unexplained Change in Mental Status No Sepsis Action Taken by Nursing No Action Required 01/02/24 01:02 01/02/24 01:09 01/02/24 01:31 Temperature Temperature Source Pulse Rate 81 71 82 Pulse Rate from SpO2 Sensor 78 Pulse Rhythm Pulse Strength Respiratory Rate 24 18 Respiratory Effort / Characteristics Respiratory Depth Respiratory Pattern Blood Pressure 149/74 H Blood Pressure Mean 99 Blood Pressure Position Pulse Oximetry 88 L 98 Oxygen Delivery Method Nasal Cannula Room Air Oxygen Flow Rate 0.5 Sepsis Recent Fever Within 48 Hours Sepsis New/Unexplained Change in Mental Status Sepsis Action Taken by Nursing 01/02/24 01:42 01/02/24 02:00 Temperature Temperature Source Pulse Rate 81 93 H Pulse Rate from SpO2 Sensor 83 93 H Pulse Rhythm Pulse Strength Respiratory Rate 22 22 Respiratory Effort / Characteristics Respiratory Depth Respiratory Pattern Blood Pressure 149/74 H 168/62 H Blood Pressure Mean 99 97 Blood Pressure Position Pulse Oximetry 94 95 Oxygen Delivery Method Nasal Cannula Nasal Cannula Oxygen Flow Rate 2 2 Sepsis Recent Fever Within 48 Hours Sepsis New/Unexplained Change in Mental Status Sepsis Action Taken by Skilled Nursing Medications Current Medication List: was personally reviewed by me Laboratory Data Attestation: I reviewed the patient's lab results. 01/02/24 00:40 01/02/24 00:40 Lab Results 01/02/24 01/02/24 Range/Units 00:40 01:03 WBC 10.72 (4.8-10.8) K/ul RBC 2.84 L (4.20-5.40) M/uL Hgb 8.8 L (12.0-16.0) g/dl Hct 26.0 L (37.0-47.0) % MCV 91.5 (80.0-100.0) fL MCH 31.0 (25.0-34.0) pg MCHC 33.8 (32.0-36.0) g/dL RDW Std Deviation 47.8 H (36.4-46.3) fL RDW Coeff of Patti 14.6 H (11.5-14.5) % Plt Count 132 (130-400) K/uL MPV 10.4 (9.4-12.4) fL Immature Gran % (Auto) 0.5 % Neut % (Auto) 78.9 % Lymph % (Auto) 13.9 % Lipscomb % (Auto) 6.4 % Eos % (Auto) 0.2 % Baso % (Auto) 0.1 % Neut # (Auto) 8.46 H (1.40-6.50) K/uL Lymph # (Auto) 1.49 (1.20-3.40) K/uL Lipscomb # (Auto) 0.69 H (0.11-0.59) K/uL Eos # (Auto) 0.02 (0.00-0.50) K/uL Baso # (Auto) 0.01 (0.00-0.20) K/uL Immature Gran # (Auto) 0.05 (0.01-0.20) K/uL PT 10.8 (9.0-12.0) Seconds INR 1.0 (0.9-1.1) APTT 23 (21-31) Seconds PTT Ratio 0.9 Sodium 133 L (136-145) mmol/L Potassium 4.7 (3.5-5.1) mmol/L Chloride 96 L (98-107) mmol/L Carbon Dioxide 28 (21-32) mmol/L Anion Gap 9 (3-11) BUN 108 H (6-23) mg/dl Creatinine 2.63 H (0.6-1.2) mg/dl Est Cr Clr Drug Dosing 16.2 ml/min Est GFR ( Amer) 18.1 ml/min Est GFR (Non-Af Amer) 15.6 ml/min BUN/Creatinine Ratio 41.1 H (10-20) Glucose 233 H (70-99(Fasting)) mg/dl Calcium 12.1 H* (8.6-10.3) mg/dl Magnesium 3.0 H (1.7-2.4) mg/dl Total Bilirubin 0.9 (0.2-1.0) mg/dl AST 23 (13-39) U/L ALT 11 (7-52) U/L Alkaline Phosphatase 49 (34-104) U/L Troponin I High Sens 277.4 H* (0-14) pg/ml B-Natriuretic Peptide 600 H (0-100) pg/ml Total Protein 6.8 (6.0-8.3) gm/dl Albumin 4.2 (3.4-5.0) gm/dl Globulin 2.6 (2.5-4.0) gm/dl Albumin/Globulin Ratio 1.6 (0.9-2) Adenovirus (PCR) Not Detected (NotDetected) B. pertussis DNA (PCR) Not Detected (NotDetected) B.parapertussis DNA PCR Not Detected (NotDetected) C. pneumoniae DNA (PCR) Not Detected (NotDetected) Coronavirus OC43 (PCR) Not Detected (NotDetected) Coronavirus HKU1 (PCR) Not Detected (NotDetected) Coronavirus 229E (PCR) Not Detected (NotDetected) SARS-CoV-2 (PCR) Not Detected (NotDetected) Coronavirus NL63 (PCR) Not Detected (NotDetected) Human Metapneumovir PCR Not Detected (NotDetected) Influenza Type A (PCR) Not Detected (NotDetected) Influenza Type B (PCR) Not Detected (NotDetected) M. pneumoniae (PCR) Not Detected (NotDetected) Parainfluenza 1 (PCR) Not Detected (NotDetected) Parainfluenza 2 (PCR) Not Detected (NotDetected) Parainfluenza 3 (PCR) Not Detected (NotDetected) Parainfluenza 4 (PCR) Not Detected (NotDetected) RSV (PCR) Not Detected (NotDetected) Entero/Rhino (PCR) Not Detected (NotDetected) Administered Medications Discontinued Medications Furosemide (Furosemide 40 Mg/4 Ml Vial) 80 mg IV ONE ONE Stop: 01/02/24 01:19 Last Admin: 01/02/24 01:40 Dose: 80 mg Documented By: MONTY Pantoprazole Sodium 80 mg/ (Dextrose) 120 mls @ 400 mls/hr IV NOW ONE Stop: 01/02/24 02:46 Last Admin: 01/02/24 02:46 Dose: 400 mls/hr Documented By: MONTY Discharge Plan Visit Data Chief Complaint: Shortness of Breath/Dyspnea Stated Complaint: SOB, SWELLING IN ANKLES/ABD, WEAKNESS ED Provider: Rober Matute Discharge Problem: SOB (shortness of breath), CHF (congestive heart failure), BOWMAN (dyspnea on exertion), Anemia, Acute GI bleeding, Hypercalcemia, MARJ (acute kidney injury), Elevated troponin Patient Disposition: Admitted As Inpatient Condition: Serious Forms Stand Alone Forms: My [facility] Prescriptions Prescriptions: No Action (DME) lancets [Accu-Chek Softclix Lancets] Misc See Rx Instructions .ROUTE .MEDSUPPLY Qty: 200 5RF Rx Instructions: test twice daily; dx code-E11.9 (DME) pen needle, diabetic [BD Ultra-Fine Short Pen Needle] 31 gauge x 5/16" needle See Dose Instructions .ROUTE .MEDSUPPLY Qty: 100 1RF Rx Instructions: Use to inject once daily spironolactone 25 mg tablet 12.5 mg PO DAILY Qty: 90 3RF metoprolol succinate 100 mg tablet extended release 24 hr 100 mg PO DAILY Qty: 90 3RF furosemide 40 mg tablet 80 mg PO DAILY Qty: 180 3RF (DME) pen needle, diabetic [Droplet Pen Needle] 31 gauge x 5/16" needle See Rx Instructions .Route Qty: 100 3RF Rx Instructions: USE/TEST ONCE DAILY OR DIRECTED insulin glargine [Basaglar KwikPen U-100 Insulin] 100 unit/mL (3 mL) insulin pen 30 unit subcut DAILY Qty: 15 6RF pravastatin 40 mg tablet 40 mg PO QPM Qty: 90 3RF Rx Instructions: take 1 tablet by mouth every evening multivitamin Tablet 1 tab PO DAILY ascorbic acid (vitamin C) 100 mg tablet 100 mg PO DAILY cholecalciferol (vitamin D3) 25 mcg (1,000 unit) tablet 25 mcg PO DAILY calcium carbonate-vitamin D3 [Calcium 600 + D(3)] 600 mg(1,500mg) -200 unit Tablet 1 tab PO DAILY metformin 1,000 mg tablet 1,000 mg PO BID Rx Instructions: TAKE 1 TABLET TWICE A DAY levothyroxine 125 mcg tablet 125 mcg PO DAILYBB Rx Instructions: take 1 tablet by mouth once daily for HYPOTHYROIDISM Referrals Referrals: Nu Castro MD [Primary Care Provider] - Discharge Problem: CHF (congestive heart failure) Qualifiers: Heart failure type: unspecified Heart failure chronicity: acute Qualified Code(s): I50.9 - Heart failure, unspecified Anemia Qualifiers: Anemia type: unspecified type Qualified Code(s): D64.9 - Anemia, unspecified
[2024-01-02 01:30] LABS: Partial Thromboplastin Ratio 0.9; Partial Thromboplastin Time 23 Seconds (21-31); Prothrombin Time 10.8 Seconds (9.0-12.0)
[2024-01-02 01:31] LABS: Albumin Globulin Ratio 1.6 (0.9-2); Albumin Level 4.2 gm/dl (3.4-5.0); BUN Creatinine Ratio 41.1 (10-20); Bilirubin,Total 0.9 mg/dl (0.2-1.0); Calcium 12.1 mg/dl (8.6-10.3); Creatinine Clr Calc Pharmacy 16.2 ml/min; Est GFR (African American) 18.1 ml/min; Est GFR (Non-African American) 15.6 ml/min; Globulin 2.6 gm/dl (2.5-4.0); Potassium 4.7 mmol/L (3.5-5.1); Total Protein 6.8 gm/dl (6.0-8.3); Troponin I High Sensitivity 277.4 pg/ml (0-14)
[2024-01-02] MEDS: FUROSEMIDE 40 MG/4 ML VIAL IV ONE (01:40)
[2024-01-02 02:19] LABS: Adenovirus PCR Not Detected (NotDetected); Bordetella parapertussis PCR Not Detected (NotDetected); Bordetella pertussis PCR Not Detected (NotDetected); Chlamydia pneumoniae PCR Not Detected (NotDetected); Coronavirus 229E PCR Not Detected (NotDetected); Coronavirus CoV-2 (COVID19)PCR Not Detected (NotDetected); Coronavirus HKU1 PCR Not Detected (NotDetected); Coronavirus NL63 PCR Not Detected (NotDetected); Coronavirus OC43PCR Not Detected (NotDetected); Human Metapneumovirus PCR Not Detected (NotDetected); Influenza A PCR Not Detected (NotDetected); Influenza B PCR Not Detected (NotDetected); Mycoplasma pneumoniae PCR Not Detected (NotDetected); Parainfluenza Virus 1 PCR Not Detected (NotDetected); Parainfluenza Virus 2 PCR Not Detected (NotDetected); Parainfluenza Virus 3 PCR Not Detected (NotDetected); Parainfluenza Virus 4 PCR Not Detected (NotDetected); Respiratory Syncytial VirusPCR Not Detected (NotDetected); Rhinovirus/Enterovirus PCR Not Detected (NotDetected)
--- NOTE | 2024-01-02 02:42 | History & Physical Report ---
Date of Service January 02, 2024 Assessment & Plan (1) CHF (congestive heart failure): Plan: 88yo female with history of HFpEF (echo 10/02/23 with LVH, EF 50-55%, well seated prosthetic valve, moderate TR), 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 Daughter reports decreased UOP despite increased doses of PO Lasix. Suspect acute exacerbation of CHF -Admit to PCU -Continue diuresis with Lasix 80mg IV daily -Monitor I/Os, daily weights -Check 2D echo -Continue Spironolactone 12.5mg po daily (2) Acute GI bleeding: Plan: Suspected UGIB. Patient with heme positive stools. Has had acute drop in her Hgb 11.2 --> 8.8. Elevation of APJ=820 Patient is not on blood thinners or anti-platelets. Denies use of NSAIDs or EtOH -Maintain two PIV -Keep NPO -Trend CBC - transfuse for active bleed, symptomatic anemia or Hgb < 8 -Protonix 40mg IV BID -GI consultation appreciated (3) Acute blood loss anemia: Plan: Hgb was 11.2 in November 2023. Hgb on arrival 8.8 --> 7.8. Heme positive stools, marked elevation of BUN raises concern for UGIB -Protonix BID -Trend CBC -Transfuse PRBCs x 1 unit for Hgb < 8 with end organ dysfunction (4) Elevated troponin: Plan: Troponin elevated on arrival at 277.4. Has sine decreased to 267.4 --> 264.3. Patient denies chest pain. Possible demand ischemia in setting of acute exacerbation of CHF. -Telemetry monitoring -Repeat echo (5) MARJ (acute kidney injury): Plan: Cr 1.69 --> 2.63. Etiology unclear - ?hypercalcemia, ?CHF. -Check urine Na and Urea -Check CK -Transfusion of PRBCs as above for anemia Hgb <8.5 with end organ dysfunction -Repeat chemistry -Avoid nephrotoxic agents -Renal dosing where needed -Will hold off on crystalloid IVF for now as patient will be receiving blood - already appears to be volume overloaded (possible delay, antibodies noted on screen) (6) Hypercalcemia: Plan: Elevated calcium=12.1. Confirmed with elevated ionized Ca at 1.48. Patient does have Calcium supplements on her list. Calcium has been high on occasion intermittently since 2018. However, 12.1 marte the highest value. Possibly secondary to Ca supplements -Check PTH and Vitamin D levels -Lasix for CHF as above -Repeat chemistry (7) Type 2 diabetes mellitus treated with insulin: Plan: Chronic. Overall well controlled with [id number]=7.1 -Decreased insulin to Lantus 12u BID -ISS -Goal blood sugar 110 - 140 (8) PAF (paroxysmal atrial fibrillation): Plan: Chronic. Stable. -Continue Metoprolol with caution in suspected active bleed -No anticoagulation (9) Hyperlipidemia: Plan: Chronic. Stable -Continue Pravastatin (10) Hypothyroidism: Plan: Chronic. Stable -Continue Synthroid History of Present Illness Chief Complaint: shortness of breath Primary Care Provider: MD Torres Osunavaleriano Carter is an 88yo female with multiple medical comorbidities including AF, HTN, HLP, HFpEF and bioprosthetic aortic valve replacement presenting from home with 3-4 days of progressive weakness, fatigue as well as shortness of breath, edema and orthopnea. Patient did double her daily Lasix dose two days ago but she has not urinated more. No report of fever, chills, cough, chest pain, nausea, vomiting, diarrhea or constipation. In the ER she is afebrile, HD stable Rectal exam revealed dark colored stool, Heme POSITIVE Allergies Allergy/AdvReac Type Severity Reaction Status Date / Time oxycodone Allergy Intermediate HIVES Verified 01/02/24 01:32 propoxyphene Allergy Intermediate RASH Verified 01/02/24 01:32 lisinopril Allergy Unknown patient Verified 01/02/24 01:32 does not remember Home Medications Medication Instructions Recorded Confirmed Type ascorbic acid (vitamin C) 100 mg 100 mg PO DAILY 06/10/19 01/02/24 History tablet cholecalciferol (vitamin D3) 25 25 mcg PO DAILY 06/10/19 01/02/24 History mcg (1,000 unit) tablet calcium carbonate 600 mg-vitamin 1 tab PO DAILY 04/22/20 01/02/24 History D3 5 mcg (200 unit) tablet (Calcium 600 + D(3)) lancets (Accu-Chek Softclix #200 ea 06/02/20 12/18/23 Rx Lancets) multivitamin 1 tab PO DAILY 05/25/22 01/02/24 History pen needle, diabetic 31 gauge x #100 ea 01/17/23 12/18/23 Rx 5/16" (BD Ultra-Fine Short Pen Needle) spironolactone 25 mg tablet 12.5 mg (1/2 x 25 mg) PO DAILY #90 03/12/23 01/02/24 Rx tabs furosemide 40 mg tablet 80 mg (2 x 40 mg) PO DAILY #180 05/02/23 01/02/24 Rx tabs metoprolol succinate 100 mg 100 mg PO DAILY #90 tabs 05/02/23 01/02/24 Rx tablet,extended release 24 hr pen needle, diabetic 31 gauge x #100 ea 05/23/23 12/18/23 Rx 5/16" (Droplet Pen Needle) insulin glargine 100 unit/mL (3 30 unit (0.3 mL) subcut DAILY #15 08/07/23 01/02/24 Rx mL) subcutaneous pen (Basaglar mL KwikPen U-100 Insulin) pravastatin 40 mg tablet 40 mg PO QPM #90 tabs 10/08/23 01/02/24 Rx levothyroxine 125 mcg tablet 125 mcg PO DAILYBB 01/02/24 01/02/24 History metformin 1,000 mg tablet 1,000 mg PO BID 01/02/24 01/02/24 History Past Med/Surg History Problem List (Updated 01/02/24 @ 05:30 by Chiqui Weaver DO) Acute blood loss anemia Elevated troponin (Acute) MARJ (acute kidney injury) (Acute) Hypercalcemia (Acute) Acute GI bleeding (Acute) Anemia (Acute) BOWMAN (dyspnea on exertion) (Acute) CHF (congestive heart failure) (Acute) SOB (shortness of breath) (Acute) Sensorineural hearing loss (SNHL) of right ear with restricted hearing of left ear Cognitive changes Type 2 diabetes mellitus treated with insulin (Acute) (HFpEF) heart failure with preserved ejection fraction PAF (paroxysmal atrial fibrillation) Pulmonary HTN Severe aortic stenosis Cholelithiasis Pacemaker CAD (coronary artery disease) H/O aortic valve replacement Hypertension Atrial fibrillation with normal ventricular rate (Acute) Hyperlipidemia (Acute) Hypothyroidism (Acute) Medical History History of DVT (deep vein thrombosis) Pneumonia HX: breast cancer History of cardioversion Hypothyroidism Surgical History History of hysterectomy S/P rotator cuff repair S/P cardiac catheterization S/P breast lumpectomy S/P umbilical hernia repair, follow-up exam Knee joint replacement status Family History Mother Myocardial infarction Cardiac disorder Brother Myocardial infarction Denies family history of Colon cancer Ovarian cancer Prostate cancer Breast cancer Social History Smoking Status: Never smoker Age Quit Using Tobacco: 31; Second Hand Exposure: No; Do You Dip or Chew Tobacco: No; Hx Alcohol Use: No Hx Substance Use: No Preferred Language: Nigerien Communication Ability: Effective Visual Impairment: No Limitations Hearing Ability: Hard of Hearing Aviation Mechanic Required: No Beliefs That Will Affect Care: None marital status: / Current Living Situation: Alone Current Living Situation Comment: home alone, caregiver comes in 4 hours a day, and daughters switch out. current occupational status: retired Other Information That Helps Us Care for You: No Feels Safe at Home: Yes Safety Concerns: Feels Safe At This Time Childhood Exposure to Second-Hand Smoke: No Diet: regular Diet Comment: regular Dental Care, Regularly: No Physical Activity Frequency: Does not Exercise Seatbelt Use: always Sunscreen Use: Yes Assistive Devices: Denture - Upper, Denture - Lower, Glasses, Hearing Aid - Bilateral and Oxygen - at Night Review of Systems Review of Systems: All systems reviewed & are unremarkable except as noted in HPI & below Physical Exam Physical Exam: General: patient ill in appearance, NAD Skin: warm, dry, intact, no rashes or lesions, +Pallor HEENT: NC/AT, PERRL, EOMI, anicteric sclera, conjunctiva without injection, external ear normal to inspection and nontender, nares patent, moist mucus membranes, dentition intact, no oropharyngeal lesions, neck supple, trachea midline, no LAD, no thyromegaly, +JVD to mid-jaw Heart: +S1/S2, regular with frequent ectopy, 3/6 THAO across precordium, blowing murmur auscultated in axilla Lungs: equal air entry bilaterally, no rales/rhonchi/wheezes Abd: +BS, soft, NT/ND, no masses/organomegaly/ascites Ext: warm, 2+ pulses in UE/LE bilaterally, no clubbing/cyanosis. 2+ pitting edema of bilateral LE Neuro: nonfocal, patient AA&O x 4, speech intact, no facial droop, moving all extremities on command with equal strength 5/5 Results & Data Results & Data Vital Signs (Past 12 Hours) Vital Signs Temp Pulse Resp BP Pulse Ox O2 Del Method O2 Flow Rate 01/02/24 02:00 93 H 22 168/62 H 95 Nasal Cannula 2 01/02/24 01:42 81 22 149/74 H 94 Nasal Cannula 2 01/02/24 01:31 82 18 149/74 H 98 Room Air 01/02/24 01:09 71 01/02/24 01:02 81 24 88 L Nasal Cannula 0.5 01/02/24 01:02 Nasal Cannula 0.5 01/02/24 01:02 Nasal Cannula 0.5 01/01/24 23:39 37.2 C 81 18 138/49 L 96 Nasal Cannula 1 Laboratory Results Laboratory Results WBC 9.00 K/ul (4.8-10.8) 01/02/24 03:55 RBC 2.50 M/uL (4.20-5.40) L 01/02/24 03:55 Hgb 7.8 g/dl (12.0-16.0) L 01/02/24 03:55 Hct 22.6 % (37.0-47.0) L 01/02/24 03:55 MCV 90.4 fL (80.0-100.0) 01/02/24 03:55 MCH 31.2 pg (25.0-34.0) 01/02/24 03:55 MCHC 34.5 g/dL (32.0-36.0) 01/02/24 03:55 RDW Std Deviation 47.8 fL (36.4-46.3) H 01/02/24 03:55 RDW Coeff of Patti 14.8 % (11.5-14.5) H 01/02/24 03:55 Plt Count 110 K/uL (130-400) L 01/02/24 03:55 MPV 10.2 fL (9.4-12.4) 01/02/24 03:55 Immature Gran % (Auto) 0.5 % 01/02/24 00:40 Neut % (Auto) 78.9 % 01/02/24 00:40 Lymph % (Auto) 13.9 % 01/02/24 00:40 [place] % (Auto) 6.4 % 01/02/24 00:40 Eos % (Auto) 0.2 % 01/02/24 00:40 Baso % (Auto) 0.1 % 01/02/24 00:40 Neut # (Auto) 8.46 K/uL (1.40-6.50) H 01/02/24 00:40 Lymph # (Auto) 1.49 K/uL (1.20-3.40) 01/02/24 00:40 [place] # (Auto) 0.69 K/uL (0.11-0.59) H 01/02/24 00:40 Eos # (Auto) 0.02 K/uL (0.00-0.50) 01/02/24 00:40 Baso # (Auto) 0.01 K/uL (0.00-0.20) 01/02/24 00:40 Immature Gran # (Auto) 0.05 K/uL (0.01-0.20) 01/02/24 00:40 PT 10.8 Seconds (9.0-12.0) 01/02/24 00:40 INR 1.0 (0.9-1.1) 01/02/24 00:40 APTT 23 Seconds (21-31) 01/02/24 00:40 PTT Ratio 0.9 01/02/24 00:40 Sodium 133 mmol/L (136-145) L 01/02/24 00:40 Potassium 4.7 mmol/L (3.5-5.1) 01/02/24 00:40 Chloride 96 mmol/L (98-107) L 01/02/24 00:40 Carbon Dioxide 28 mmol/L (21-32) 01/02/24 00:40 Anion Gap 9 (3-11) 01/02/24 00:40 BUN 108 mg/dl (6-23) H 01/02/24 00:40 Creatinine 2.63 mg/dl (0.6-1.2) H 01/02/24 00:40 Est Cr Clr Drug Dosing 16.2 ml/min 01/02/24 00:40 Est GFR ( Amer) 18.1 ml/min 01/02/24 00:40 Est GFR (Non-Af Amer) 15.6 ml/min 01/02/24 00:40 BUN/Creatinine Ratio 41.1 (10-20) H 01/02/24 00:40 Glucose 233 mg/dl (70-99(Fasting)) H 01/02/24 00:40 Calcium 12.1 mg/dl (8.6-10.3) H* 01/02/24 00:40 Ionized Calcium 1.48 mmol/L (1.12-1.32) H 01/02/24 03:55 Magnesium 3.0 mg/dl (1.7-2.4) H 01/02/24 00:40 Total Bilirubin 0.9 mg/dl (0.2-1.0) 01/02/24 00:40 AST 23 U/L (13-39) 01/02/24 00:40 ALT 11 U/L (7-52) 01/02/24 00:40 Alkaline Phosphatase 49 U/L (34-104) 01/02/24 00:40 Total Creatine Kinase 293 U/L (26-192) H 01/02/24 03:55 Troponin I High Sens 267.4 pg/ml (0-14) H* 01/02/24 02:39 B-Natriuretic Peptide 600 pg/ml (0-100) H 01/02/24 00:40 Total Protein 6.8 gm/dl (6.0-8.3) 01/02/24 00:40 Albumin 4.2 gm/dl (3.4-5.0) 01/02/24 00:40 Globulin 2.6 gm/dl (2.5-4.0) 01/02/24 00:40 Albumin/Globulin Ratio 1.6 (0.9-2) 01/02/24 00:40 25-OH Vitamin D Total 103.6 ng/ml (30-100) H 01/02/24 03:55 PTH Intact 39.3 pg/ml (12.0-88.0) 01/02/24 03:55 Adenovirus (PCR) Not Detected (NotDetected) 01/02/24 01:03 B. pertussis DNA (PCR) Not Detected (NotDetected) 01/02/24 01:03 B.parapertussis DNA PCR Not Detected (NotDetected) 01/02/24 01:03 C. pneumoniae DNA (PCR) Not Detected (NotDetected) 01/02/24 01:03 Coronavirus OC43 (PCR) Not Detected (NotDetected) 01/02/24 01:03 Coronavirus HKU1 (PCR) Not Detected (NotDetected) 01/02/24 01:03 Coronavirus 229E (PCR) Not Detected (NotDetected) 01/02/24 01:03 SARS-CoV-2 (PCR) Not Detected (NotDetected) 01/02/24 01:03 Coronavirus NL63 (PCR) Not Detected (NotDetected) 01/02/24 01:03 Human Metapneumovir PCR Not Detected (NotDetected) 01/02/24 01:03 Influenza Type A (PCR) Not Detected (NotDetected) 01/02/24 01:03 Influenza Type B (PCR) Not Detected (NotDetected) 01/02/24 01:03 M. pneumoniae (PCR) Not Detected (NotDetected) 01/02/24 01:03 Parainfluenza 1 (PCR) Not Detected (NotDetected) 01/02/24 01:03 Parainfluenza 2 (PCR) Not Detected (NotDetected) 01/02/24 01:03 Parainfluenza 3 (PCR) Not Detected (NotDetected) 01/02/24 01:03 Parainfluenza 4 (PCR) Not Detected (NotDetected) 01/02/24 01:03 RSV (PCR) Not Detected (NotDetected) 01/02/24 01:03 Entero/Rhino (PCR) Not Detected (NotDetected) 01/02/24 01:03 Blood Type A Negative 01/02/24 02:39 Antibody Screen POSITIVE A 01/02/24 02:39 ECG Additional Comments: EKG with paced beats, SR at 76bpm, 1st degree AV block with ML=950, LBBB PG Care Time/CCT Total # of Minutes Spent Total Time Spent with Patient: Total time spent is greater than 50% in coordination of care (as documented) at patient's floor/unit and/or counseling patient: Coding Level of Care Code 32717 INT INP/OBS CARE MIN Diagnoses CHF (congestive heart failure) I50.9 Heart failure chronicity: acute Heart failure type: unspecified Acute GI bleeding K92.2 Acute blood loss anemia D62 Elevated troponin R79.89 MARJ (acute kidney injury) N17.9 Hypercalcemia E83.52 Type 2 diabetes mellitus treated with insulin E11.9; Z79.4 PAF (paroxysmal atrial fibrillation) I48.0 Hyperlipidemia, unspecified hyperlipidemia type E78.5 Hyperlipidemia type: unspecified Hypothyroidism, unspecified type E03.9 Hypothyroidism type: unspecified (1) CHF (congestive heart failure) Heart failure chronicity: acute Heart failure type: unspecified Qualified Code(s): I50.9 - Heart failure, unspecified (9) Hyperlipidemia Hyperlipidemia type: unspecified Qualified Code(s): E78.5 - Hyperlipidemia, unspecified (10) Hypothyroidism Hypothyroidism type: unspecified Qualified Code(s): E03.9 - Hypothyroidism, unspecified
[2024-01-02] MEDS: PANTOprazole 80 MG in DEXTROSE 5% 100 ML IV ONE (02:46)
[2024-01-02] MEDS ORDERED: GLUCOSE 10 TAB/TUBE PO PRN (03:21)
[2024-01-02] MEDS ORDERED: GLUCOSE 40% GEL 15 GM TUBE PO PRN (03:21)
[2024-01-02] MEDS ORDERED: ONDANSETRON INJ 2 MG/ML 2 ML VIAL IV PRN (03:21)
[2024-01-02] MEDS ORDERED: DEXTROSE 50% 50 ML SYRINGE IV PRN (03:21)
[2024-01-02] MEDS ORDERED: GLUCAGON FOR INJ 1 MG VIAL SQ PRN (03:21)
[2024-01-02] MEDS ORDERED: CARBOHYDRATES FOR HYPOGLYCEMIA PO PRN (03:21)
[2024-01-02 04:08] LABS: Hematocrit (blood only) 22.6 % (37.0-47.0); Hemoglobin 7.8 g/dl (12.0-16.0); Mean Corpuscular Hemoglobin 31.2 pg (25.0-34.0); Mean Corpuscular Hgb Conc 34.5 g/dL (32.0-36.0); Mean Corpuscular Volume 90.4 fL (80.0-100.0); Mean Platelet Volume 10.2 fL (9.4-12.4); Platelet Count 110 K/uL (130-400); RDW Coefficient of Variation 14.8 % (11.5-14.5); RDW Standard Deviation 47.8 fL (36.4-46.3)
[2024-01-02 05:24] LABS: Troponin I High Sensitivity 264.3 pg/ml (0-14)
[2024-01-02] MEDS ORDERED: SODIUM CHLORIDE 0.9% 250 ML IV PRN (05:32)
--- NOTE | 2024-01-02 07:21 | XRay Report ---
XR chest 1V portable HISTORY: Dyspnea COMPARISON: Chest 05/21/2022. FINDINGS: No pneumothorax. No pleural effusions. There are postoperative changes, and aortic valve pr osthesis, and left-sided dual-chamber pacemaker again noted. No acute fractures identified. Cardiomeg trista and mild pulmonary vascular congestion persists. No new focal lung consolidations to suggest a pn eumonia. IMPRESSION: Stable cardiomegaly and mild pulmonary vascular congestion. ACT 112: Negative or not required by law. Electronically signed by: Jarred Quintanilla M.D. 01/02/2024 7:19 AM
[2024-01-02] MEDS: SPIRONOLACTONE 12.5 MG TAB PO SCH (09:34)
[2024-01-02] MEDS: PANTOprazole 40 MG in SYRINGE 0 ML IV SCH (09:34)
[2024-01-02] MEDS: FUROSEMIDE 40 MG/4 ML VIAL IV SCH (09:34)
[2024-01-02] MEDS: LEVOTHYROXINE SODIUM 125 MCG TABLET PO SCH (09:34)
[2024-01-02] MEDS: METOPROLOL SUCC 50MG EXT REL TAB PO SCH (09:34)
[2024-01-02] MEDS: LANTUS PER UNIT CHARGE SQ SCH (09:35)
[2024-01-02] MEDS: INSULIN ASPART PER UNIT CHARGE SC SCH (09:35)
--- NOTE | 2024-01-02 10:50 | Gastrointestinal Consultation ---
Date of Consultation January 02, 2024 Assessment & Plan (1) Anemia: Patient is an 88 year old female admitted with complaints of SOB and CHF exacerbation. GI consult was placed due to heme positive stools. hgb is down from 11.2 in November. hgb on admission was 8.8. Per nursing, no obvious bleeding at this time. she has not moved her bowels since arrival at the hospital. - follow hgb/hct, transfuse as needed. - I discussed with both the patient and her daughter Valarie and at this time they do not want any invasive GI testing done given age and other comorbidities. they prefer to just monitor. - continue with protonix 40mg IV BID. Supervising Physician Co-Signing Physician Notes Agree with HERACLIO Parks as above Interviewed and examined patient and agree with above Continue current therapy and supportive care No plans for any invasive testing per patient and daughter request History of Present Illness Reason for Consultation: ? GIB Requesting Physician: Chiqui Weaver DO Attending Physician: Tika Castro MD History of Present Illness Patient is an 88 year old female with multiple medical comorbidities including AF, HTN, HLP, HFpEF and bioprosthetic aortic valve replacement presenting to the ER from home with 3-4 days of progressive weakness, fatigue as well as shortness of breath, lower extremity edema, and orthopnea. Patient has a history of dementia but seems alert and fairly oriented. GI consulted for possible GI bleeding as she had her stools checked that were dark and heme positive. ROS from patient is unremarkable. I spoke with Nursing in the ED and no signs of active GI bleeding as she has not moved her bowels since coming to the hospital. Patient tells me that she was not interested in any invasive work up given her age. She asked that I call to discuss with her daughter Valarie. I called and spoke with Valarie and she notes that patient has not had a change in bowels and usually moves bowels once daily. stools can be dark at times. no brbpr. she tells me patient does not use blood thinners or take nsaids. her daughter tells me decision was made to hold blood thinners as she started having recurrent issue with falls last year. 11/28 hgb 11.2 01/01 hgb 8.8 on admission, this fell to 7.8. she has been ordered 1 unit PRBC. Allergies Allergy/AdvReac Type Severity Reaction Status Date / Time oxycodone Allergy Intermediate HIVES Verified 01/02/24 01:32 propoxyphene Allergy Intermediate RASH Verified 01/02/24 01:32 lisinopril Allergy Unknown patient Verified 01/02/24 01:32 does not remember Home Medications Medication Instructions Recorded Confirmed Type ascorbic acid (vitamin C) 100 mg 100 mg PO DAILY 06/10/19 01/02/24 History tablet cholecalciferol (vitamin D3) 25 25 mcg PO DAILY 06/10/19 01/02/24 History mcg (1,000 unit) tablet calcium carbonate 600 mg-vitamin 1 tab PO DAILY 04/22/20 01/02/24 History D3 5 mcg (200 unit) tablet (Calcium 600 + D(3)) lancets (Accu-Chek Softclix #200 ea 06/02/20 12/18/23 Rx Lancets) multivitamin 1 tab PO DAILY 05/25/22 01/02/24 History pen needle, diabetic 31 gauge x #100 ea 01/17/23 12/18/23 Rx 5/16" (BD Ultra-Fine Short Pen Needle) spironolactone 25 mg tablet 12.5 mg (1/2 x 25 mg) PO DAILY #90 03/12/23 01/02/24 Rx tabs furosemide 40 mg tablet 80 mg (2 x 40 mg) PO DAILY #180 05/02/23 01/02/24 Rx tabs metoprolol succinate 100 mg 100 mg PO DAILY #90 tabs 05/02/23 01/02/24 Rx tablet,extended release 24 hr pen needle, diabetic 31 gauge x #100 ea 05/23/23 12/18/23 Rx 5/16" (Droplet Pen Needle) insulin glargine 100 unit/mL (3 30 unit (0.3 mL) subcut DAILY #15 08/07/23 01/02/24 Rx mL) subcutaneous pen (Basaglar mL KwikPen U-100 Insulin) pravastatin 40 mg tablet 40 mg PO QPM #90 tabs 10/08/23 01/02/24 Rx levothyroxine 125 mcg tablet 125 mcg PO DAILYBB 01/02/24 01/02/24 History metformin 1,000 mg tablet 1,000 mg PO BID 01/02/24 01/02/24 History Patient History Medical History History of DVT (deep vein thrombosis) Pneumonia HX: breast cancer History of cardioversion Hypothyroidism Surgical History History of hysterectomy S/P rotator cuff repair S/P cardiac catheterization S/P breast lumpectomy S/P umbilical hernia repair, follow-up exam Knee joint replacement status Family History Mother Myocardial infarction Cardiac disorder Brother Myocardial infarction Denies family history of Colon cancer Ovarian cancer Prostate cancer Breast cancer Social History Smoking Status: Never smoker Age Quit Using Tobacco: 31; Second Hand Exposure: No; Do You Dip or Chew Tobacco: No; Hx Alcohol Use: No Hx Substance Use: No Preferred Language: Mohawk Communication Ability: Effective Visual Impairment: No Limitations Hearing Ability: Hard of Hearing Jelly Maker Required: No Beliefs That Will Affect Care: None marital status: / Current Living Situation: Alone Current Living Situation Comment: home alone, caregiver comes in 4 hours a day, and daughters switch out. current occupational status: retired Other Information That Helps Us Care for You: No Feels Safe at Home: Yes Safety Concerns: Feels Safe At This Time Childhood Exposure to Second-Hand Smoke: No Diet: regular Diet Comment: regular Dental Care, Regularly: No Physical Activity Frequency: Does not Exercise Seatbelt Use: always Sunscreen Use: Yes Assistive Devices: Denture - Upper, Denture - Lower, Glasses, Hearing Aid - Bilateral and Oxygen - at Night Review of Systems Review of Systems: All systems reviewed & are unremarkable except as noted in HPI & below Physical Exam Constitutional: WD/WN, vitals as above Respiratory: normal respiratory effort, lungs clear to auscultation Cardiovascular: RRR, no murmur, no edema Gastrointestinal (Abdomen): normal bowel sounds, soft, nontender, no hepatosplenomegaly Psychiatric: Orientation: alert Affect: euthymic affect not completely oriented due to dementia. Results & Data Vital Signs (Past 12 Hours) Vital Signs Temp Pulse Resp BP Pulse Ox Pulse Ox O2 Del Method 01/02/24 08:33 98.1 F 72 18 141/54 H 95 01/02/24 07:35 98.1 F 78 18 147/57 H 95 01/02/24 07:05 98.1 F 73 18 128/55 L 95 01/02/24 07:00 98.1 F 73 18 135/55 L 95 01/02/24 06:58 85 01/02/24 06:45 98.1 F 75 18 141/38 H 92 01/02/24 06:45 98.1 F 01/02/24 06:45 76 18 141/38 H 92 Nasal Cannula 01/02/24 06:30 98.1 F 77 20 117/42 L 94 01/02/24 06:05 81 20 134/38 L 92 Nasal Cannula 01/02/24 04:35 Nasal Cannula 01/02/24 04:30 90 21 91 Nasal Cannula 01/02/24 04:07 88 01/02/24 04:04 86 19 122/60 95 Nasal Cannula 01/02/24 03:59 96 01/02/24 03:29 88 21 135/66 95 Nasal Cannula 01/02/24 02:31 86 24 158/47 H 91 Nasal Cannula 01/02/24 02:00 93 H 22 168/62 H 95 Nasal Cannula 01/02/24 01:42 81 22 149/74 H 94 Nasal Cannula 01/02/24 01:31 82 18 149/74 H 98 Room Air 01/02/24 01:09 71 01/02/24 01:02 81 24 88 L Nasal Cannula 01/02/24 01:02 Nasal Cannula 01/02/24 01:02 Nasal Cannula 01/01/24 23:39 99.0 F 81 18 138/49 L 96 Nasal Cannula O2 Del Method O2 Flow Rate O2 Flow Rate 01/02/24 08:33 2 01/02/24 07:35 2 01/02/24 07:05 2 01/02/24 07:00 2 01/02/24 06:58 01/02/24 06:45 2 01/02/24 06:45 01/02/24 06:45 2 01/02/24 06:30 2 01/02/24 06:05 2 01/02/24 04:35 2 01/02/24 04:30 2 01/02/24 04:07 01/02/24 04:04 2 01/02/24 03:59 Nasal Cannula 2 01/02/24 03:29 2 01/02/24 02:31 2 01/02/24 02:00 2 01/02/24 01:42 2 01/02/24 01:31 01/02/24 01:09 01/02/24 01:02 0.5 01/02/24 01:02 0.5 01/02/24 01:02 0.5 01/01/24 23:39 1 Coding Level of Care Code 45662 OFFICE CONSULT LVL M Diagnoses Anemia D64.9 Anemia type: unspecified type Time Spent (min) 40 (1) Anemia Anemia type: unspecified type Qualified Code(s): D64.9 - Anemia, unspecified
--- NOTE | 2024-01-02 16:32 | Electrocardiogram Report ---
Test Reason : Blood Pressure : / mmHG Vent. Rate : 076 BPM Atrial Rate : 076 BPM P-R Int : 396 ms QRS Dur : 160 ms QT Int : 426 ms P-R-T Axes : 000 -53 093 degrees QTc Int : 479 ms Sinus rhythm with 1st degree A-V block ventricular-paced complexes Left axis deviation Left bundle branch block Abnormal ECG When compared with ECG of 31-MAR-2022 15:50, No significant change Confirmed by Hernan Delaney ([id number]) on 01/02/2024 4:31:55 PM Referred By: REFERRED SELF Confirmed By:Hernan Delaney
[2024-01-02 16:49] LABS: Hematocrit (blood only) 26.4 % (37.0-47.0); Hemoglobin 8.9 g/dl (12.0-16.0); Mean Corpuscular Hemoglobin 30.8 pg (25.0-34.0); Mean Corpuscular Hgb Conc 33.7 g/dL (32.0-36.0); Mean Corpuscular Volume 91.3 fL (80.0-100.0); Mean Platelet Volume 10.4 fL (9.4-12.4); Platelet Count 106 K/uL (130-400); RDW Coefficient of Variation 15.2 % (11.5-14.5); Red Blood Count 2.89 M/uL (4.20-5.40); White Blood Count 9.05 K/ul (4.8-10.8)
--- NOTE | 2024-01-02 17:02 | XCELERA ---
[id number]
[2024-01-02] MEDS: PRAVASTATIN SOD 40 MG TAB PO SCH (21:49)
[2024-01-03 06:13] LABS: Hematocrit (blood only) 27.4 % (37.0-47.0); Mean Corpuscular Hemoglobin 30.5 pg (25.0-34.0); Mean Corpuscular Hgb Conc 32.8 g/dL (32.0-36.0); Mean Corpuscular Volume 92.9 fL (80.0-100.0); Mean Platelet Volume 10.7 fL (9.4-12.4); Platelet Count 110 K/uL (130-400); RDW Coefficient of Variation 15.3 % (11.5-14.5); RDW Standard Deviation 50.6 fL (36.4-46.3); Red Blood Count 2.95 M/uL (4.20-5.40); White Blood Count 8.15 K/ul (4.8-10.8)
[2024-01-03 06:32] LABS: BUN Creatinine Ratio 32.5 (10-20); Calcium 11.3 mg/dl (8.6-10.3); Creatinine Clr Calc Pharmacy 13.8 ml/min; Est GFR (Non-African American) 12.9 ml/min; Potassium 3.9 mmol/L (3.5-5.1)
--- NOTE | 2024-01-03 10:44 | Hospitalist Progress Note ---
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 Likely due to acute on chronic CHF with preserved EF Reduce dose of Lasix to 40mg daily, due to worsening renal function Monitor I/o, daily weight Continue Spironolactone 12.5mg po daily (2) Acute GI bleeding: Plan: Evaluated by gastroenterology, patient and family declined any workup like EGD or colonoscopy Will continue to monitor hemoglobin for now. Transfuse if hemoglobin drops below 7 -Protonix 40mg IV BID -GI consultation appreciated (3) Hypoxia: Plan: From CHF exacerbation X-ray shows evidence of pulmonary congestion Continue supplemental oxygen currently on 2 L oxygen through nasal cannula Wean as tolerated. (4) Acute blood loss anemia: Plan: Hgb was 11.2 in November 2023. Hgb on arrival 8.8 --> 7.8. Heme positive stools, marked elevation of BUN raises concern for UGIB -Protonix BID -Trend CBC -Transfuse PRBCs x 1 unit for Hgb < 8 with end organ dysfunction (5) Elevated troponin: Plan: Troponin elevated on arrival at 277.4. Has sine decreased to 267.4 --> 264.3. Patient denies chest pain. Possible demand ischemia in setting of acute exacerbation of CHF. -Telemetry monitoring -Repeat echo (6) MARJ (acute kidney injury): Plan: MARJ on CKD Worsening renal function on account of diuresis Cut dose of Lasix to 40 mg daily, from 80mg Avoid nephrotoxic's (7) Hypercalcemia: Plan: Elevated calcium=12.1. Confirmed with elevated ionized Ca at 1.48. Patient does have Calcium supplements on her list. Calcium has been high on occasion intermittently since 2018. However, 12.1 marte the highest value. Possibly secondary to Ca supplements -Check PTH and Vitamin D levels -Lasix for CHF as above -Repeat chemistry (8) Type 2 diabetes mellitus treated with insulin: Plan: Chronic. Overall well controlled with SguE3J=2.1 -Decreased insulin to Lantus 12u BID -ISS -Goal blood sugar 110 - 140 (9) PAF (paroxysmal atrial fibrillation): Plan: Chronic. Stable. -Continue Metoprolol with caution in suspected active bleed -No anticoagulation (10) Hyperlipidemia: Plan: Chronic. Stable -Continue Pravastatin (11) Hypothyroidism: Plan: Chronic. Stable -Continue Synthroid Plan Patient and family willing to discuss options for hospice, case management has been notified. CODE STATUS DNR/DNI DVT prophylaxis SCDs Admission and Anticipated Discharge Date Admission Date: January 02, 2024 Subjective Patient seen and examined, lying quietly in bed, states shortness of breath is at baseline. Review of Systems Review of Systems: All systems reviewed are negative, apart from the ones contained in the history. Physical Exam Physical Exam: The patient is awake, alert and oriented 3, well developed and well nourished, normocephalic and atraumatic, lying in bed and in no acute distress. HEENT--PERRL, EOMI, mucous membranes and oropharynx mildly dry Neck--supple. No JVD. No bruits. Thyroid normal, trachea midline, no adenopathy. Heart--normal S1 and S2. No murmurs, rubs or gallops. Lungs--clear bilaterally, no respiratory distress, no accessory muscle use. Abdomen--normal bowel sounds and soft. Extremities--no cyanosis or clubbing. trace leg edema. Dermatologic--normal skin turgor, normal color, no abnormal lymph nodes, no rash. Neurologic--cranial nerves II through XII grossly intact. Rheumatologic--normal range of motion. Psychiatric--normal affect. Results & Data Results & Data Vital Signs (Past 12 Hours) Vital Signs Temp Pulse Resp BP Pulse Ox O2 Del Method O2 Flow Rate 01/03/24 07:47 Nasal Cannula 2 01/03/24 07:20 97.9 F 72 17 138/54 L 94 Nasal Cannula 2.0 01/03/24 03:18 98.4 F 75 18 150/60 H 96 Room Air 01/02/24 22:37 97.9 F 69 18 148/62 H 97 Nasal Cannula 2 PG Care Time/CCT Total # of Minutes Spent Total Time Spent with Patient: Total time spent is greater than 50% in coordination of care (as documented) at patient's floor/unit and/or counseling patient: Coding Level of Care Code 23956 SUB INP/OBS CARE 2/35MIN Diagnoses CHF (congestive heart failure) I50.9 Heart failure chronicity: acute Heart failure type: unspecified Acute GI bleeding K92.2 Hypoxia R09.02 Acute blood loss anemia D62 Elevated troponin R79.89 MARJ (acute kidney injury) N17.9 Hypercalcemia E83.52 Type 2 diabetes mellitus treated with insulin E11.9; Z79.4 PAF (paroxysmal atrial fibrillation) I48.0 Hyperlipidemia, unspecified hyperlipidemia type E78.5 Hyperlipidemia type: unspecified Hypothyroidism, unspecified type E03.9 Hypothyroidism type: unspecified Time Spent (min) 35 (1) CHF (congestive heart failure) Heart failure chronicity: acute Heart failure type: unspecified Qualified Code(s): I50.9 - Heart failure, unspecified (10) Hyperlipidemia Hyperlipidemia type: unspecified Qualified Code(s): E78.5 - Hyperlipidemia, unspecified (11) Hypothyroidism Hypothyroidism type: unspecified Qualified Code(s): E03.9 - Hypothyroidism, unspecified
--- NOTE | 2024-01-03 11:48 | Communication Note ---
Date of Service: January 03, 2024 Palliative Medicine Consult received/appreciated/chart reviewed Consult requested for "want to talk about hospice" - no indication for high acuity inpatient Pall Med consult. Patient is desiring dc option with hospice, therefore this discussion about disposition planning is deferred to care mgt teams; additionally, CM can arrange for hospice rep to come speak with pt and family for more in depth conversation. Consult deferred. Pt not seen, no charge submitted. D/w primary team. TS 34min Thank you, Dr. Mery Olivares DNP Director, Palliative Care
[2024-01-04 06:03] LABS: BUN Creatinine Ratio 38.7 (10-20); Calcium 10.3 mg/dl (8.6-10.3); Creatinine Clr Calc Pharmacy 15.2 ml/min; Est GFR (African American) 17.6 ml/min; Est GFR (Non-African American) 15.2 ml/min; Potassium 3.8 mmol/L (3.5-5.1)
[2024-01-04] MEDS: FUROSEMIDE 40 MG/4 ML VIAL IV SCH (08:45)
--- NOTE | 2024-01-04 10:58 | Hospitalist Progress Note ---
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 Likely due to acute on chronic CHF with preserved EF Reduce dose of Lasix to 40mg daily, due to worsening renal function Monitor I/o, daily weight Continue Spironolactone 12.5mg po daily (2) Acute GI bleeding: Plan: Evaluated by gastroenterology, patient and family declined any workup like EGD or colonoscopy Will continue to monitor hemoglobin for now. Transfuse if hemoglobin drops below 7 -Protonix 40mg IV BID -GI consultation appreciated (3) Hypoxia: Plan: From CHF exacerbation X-ray shows evidence of pulmonary congestion Continue supplemental oxygen currently on 2 L oxygen through nasal cannula Wean as tolerated. (4) Acute blood loss anemia: Plan: Hgb was 11.2 in November 2023. Hgb on arrival 8.8 --> 7.8. Heme positive stools, marked elevation of BUN raises concern for UGIB -Protonix BID -Trend CBC -Transfuse PRBCs x 1 unit for Hgb < 8 with end organ dysfunction (5) Elevated troponin: Plan: Slight elevation in Trop, Possible demand ischemia in setting of acute exacerbation of CHF. Patient denies chest pain. -Telemetry monitoring -Repeat echo (6) MARJ (acute kidney injury): Plan: MARJ on CKD Some improvement in cr following reduction of laix dose from 80 to 40mg Avoid nephrotoxic's (7) Hypercalcemia: Plan: Resolved (8) Type 2 diabetes mellitus treated with insulin: Plan: Chronic. Overall well controlled with WywY4I=5.1 -Decreased insulin to Lantus 12u BID -ISS -Goal blood sugar 110 - 140 (9) PAF (paroxysmal atrial fibrillation): Plan: Chronic. Stable. -Continue Metoprolol with caution in suspected active bleed -No anticoagulation (10) Hyperlipidemia: Plan: Chronic. Stable -Continue Pravastatin (11) Hypothyroidism: Plan: Chronic. Stable -Continue Synthroid Plan Patient participating in PT, they recommend SNF rehab CODE STATUS DNR/DNI DVT prophylaxis SCDs Admission and Anticipated Discharge Date Admission Date: January 02, 2024 Subjective Patient seen and examined, lying quietly in bed, states shortness of breath is at baseline. Review of Systems Review of Systems: All systems reviewed are negative, apart from the ones contained in the history. Physical Exam Physical Exam: The patient is awake, alert and oriented 3, well developed and well nourished, normocephalic and atraumatic, lying in bed and in no acute distress. HEENT--PERRL, EOMI, mucous membranes and oropharynx mildly dry Neck--supple. No JVD. No bruits. Thyroid normal, trachea midline, no adenopathy. Heart--normal S1 and S2. No murmurs, rubs or gallops. Lungs--clear bilaterally, no respiratory distress, no accessory muscle use. Abdomen--normal bowel sounds and soft. Extremities--no cyanosis or clubbing. trace leg edema. Dermatologic--normal skin turgor, normal color, no abnormal lymph nodes, no rash. Neurologic--cranial nerves II through XII grossly intact. Rheumatologic--normal range of motion. Psychiatric--normal affect. Results & Data Results & Data Vital Signs (Past 12 Hours) Vital Signs Temp Pulse Resp BP Pulse Ox O2 Del Method O2 Flow Rate 01/04/24 07:20 97.9 F 70 18 132/56 L 97 Nasal Cannula 2.0 01/04/24 02:28 97.7 F 70 18 111/60 96 Nasal Cannula 2.0 PG Care Time/CCT Total # of Minutes Spent Total Time Spent with Patient: Total time spent is greater than 50% in coordination of care (as documented) at patient's floor/unit and/or counseling patient: Coding Level of Care Code 08832 SUB INP/OBS CARE 2/35MIN Diagnoses CHF (congestive heart failure) I50.9 Heart failure chronicity: acute Heart failure type: unspecified Acute GI bleeding K92.2 Hypoxia R09.02 Acute blood loss anemia D62 Elevated troponin R79.89 MARJ (acute kidney injury) N17.9 Hypercalcemia E83.52 Type 2 diabetes mellitus treated with insulin E11.9; Z79.4 PAF (paroxysmal atrial fibrillation) I48.0 Hyperlipidemia, unspecified hyperlipidemia type E78.5 Hyperlipidemia type: unspecified Hypothyroidism, unspecified type E03.9 Hypothyroidism type: unspecified Time Spent (min) 35 (1) CHF (congestive heart failure) Heart failure chronicity: acute Heart failure type: unspecified Qualified Code(s): I50.9 - Heart failure, unspecified (10) Hyperlipidemia Hyperlipidemia type: unspecified Qualified Code(s): E78.5 - Hyperlipidemia, unspecified (11) Hypothyroidism Hypothyroidism type: unspecified Qualified Code(s): E03.9 - Hypothyroidism, unspecified
[2024-01-04] MEDS: POLYETHYLENE (MIRALAX) 17 GM PACK PO SCH (15:43)
[2024-01-05 06:50] LABS: Calcium 10.1 mg/dl (8.6-10.3)
[2024-01-05 06:56] LABS: Creatinine Clr Calc Pharmacy 15.9 ml/min; Est GFR (African American) 18.8 ml/min; Est GFR (Non-African American) 16.2 ml/min
[2024-01-05] MEDS: ACETAMINOPHEN 325 MG TAB PO PRN (09:05)
--- NOTE | 2024-01-05 17:04 | Hospitalist Progress Note ---
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 Likely due to acute on chronic CHF with preserved EF Reduce dose of Lasix to 40mg daily, due to worsening renal function Discontinue IV Lasix today Start p.o. Lasix 40 mg tomorrow. Monitor I/o, daily weight Continue Spironolactone 12.5mg po daily (2) Acute GI bleeding: Plan: Evaluated by gastroenterology, patient and family declined any workup like EGD or colonoscopy Will continue to monitor hemoglobin for now. Transfuse if hemoglobin drops below 7 -Protonix 40mg IV BID -GI consultation appreciated (3) Hypoxia: Plan: From CHF exacerbation X-ray shows evidence of pulmonary congestion Continue supplemental oxygen currently on 2 L oxygen through nasal cannula Wean as tolerated. (4) Acute blood loss anemia: Plan: Hgb was 11.2 in November 2023. Hgb on arrival 8.8 --> 7.8. Heme positive stools, marked elevation of BUN raises concern for UGIB -Protonix BID -Trend CBC -Transfuse PRBCs x 1 unit for Hgb < 8 with end organ dysfunction (5) Elevated troponin: Plan: Slight elevation in Trop, Possible demand ischemia in setting of acute exacerbation of CHF. Patient denies chest pain. -Telemetry monitoring -Repeat echo (6) MARJ (acute kidney injury): Plan: MARJ on CKD Some improvement in cr following reduction of laix dose from 80 to 40mg Avoid nephrotoxic's (7) Hypercalcemia: Plan: Resolved (8) Type 2 diabetes mellitus treated with insulin: Plan: Chronic. Overall well controlled with WykT8N=7.1 -Decreased insulin to Lantus 12u BID -ISS -Goal blood sugar 110 - 140 (9) PAF (paroxysmal atrial fibrillation): Plan: Chronic. Stable. -Continue Metoprolol with caution in suspected active bleed -No anticoagulation (10) Hyperlipidemia: Plan: Chronic. Stable -Continue Pravastatin (11) Hypothyroidism: Plan: Chronic. Stable -Continue Synthroid Plan Patient participating in PT, they recommend SNF rehab. Will need insurance authorization which will need to wait until after the . CODE STATUS DNR/DNI DVT prophylaxis SCDs Admission and Anticipated Discharge Date Admission Date: January 02, 2024 Subjective Patient feels well from a breathing standpoint. Her legs are not as swollen per the daughter Review of Systems Review of Systems: All systems reviewed & are unremarkable except as noted in Subjective Physical Exam Physical Exam: General: Awake, conversant Heart: S1, S2/regular rate and rhythm, no murmur rubs or gallops Lungs: Clear to auscultation bilaterally. Normal effort Abdomen: Soft/nontender/nondistended. No hepatosplenomegaly Extremities: No clubbing/cyanosis. No edema Behavior: Appropriate, cooperative Results & Data Results & Data Vital Signs (Past 12 Hours) Vital Signs Temp Pulse Resp BP Pulse Ox O2 Del Method O2 Flow Rate 01/05/24 15:21 36.6 C 70 19 113/40 L 94 Nasal Cannula 2.0 01/05/24 11:13 36.6 C 70 18 110/56 L 94 Nasal Cannula 01/05/24 08:00 Nasal Cannula 2 01/05/24 07:38 36.4 C L 84 18 113/64 93 Nasal Cannula 2.0 Laboratory Results Abnormal lab results 01/04/24 01/05/24 01/05/24 Range/Units 20:02 06:05 07:39 BUN 97 H (6-23) mg/dl Creatinine 2.55 H (0.6-1.2) mg/dl BUN/Creatinine Ratio 38.0 H (10-20) Glucose 109 H (70-99(Fasting)) mg/dl POC Glucose 188 H 124 H (70-99) mg/dl 01/05/24 01/05/24 Range/Units 12:13 16:24 BUN (6-23) mg/dl Creatinine (0.6-1.2) mg/dl BUN/Creatinine Ratio (10-20) Glucose (70-99(Fasting)) mg/dl POC Glucose 192 H 215 H (70-99) mg/dl PG Care Time/CCT Total # of Minutes Spent Total Time Spent with Patient: Total time spent is greater than 50% in coordination of care (as documented) at patient's floor/unit and/or counseling patient: Coding Level of Care Code 80338 SUB INP/OBS CARE 2/35MIN Diagnoses CHF (congestive heart failure) I50.9 Heart failure chronicity: acute Heart failure type: unspecified Acute GI bleeding K92.2 Hypoxia R09.02 Acute blood loss anemia D62 Elevated troponin R79.89 MARJ (acute kidney injury) N17.9 Hypercalcemia E83.52 Type 2 diabetes mellitus treated with insulin E11.9; Z79.4 PAF (paroxysmal atrial fibrillation) I48.0 Hyperlipidemia, unspecified hyperlipidemia type E78.5 Hyperlipidemia type: unspecified Hypothyroidism, unspecified type E03.9 Hypothyroidism type: unspecified (1) CHF (congestive heart failure) Heart failure chronicity: acute Heart failure type: unspecified Qualified Code(s): I50.9 - Heart failure, unspecified (10) Hyperlipidemia Hyperlipidemia type: unspecified Qualified Code(s): E78.5 - Hyperlipidemia, unspecified (11) Hypothyroidism Hypothyroidism type: unspecified Qualified Code(s): E03.9 - Hypothyroidism, unspecified
[2024-01-05] MEDS: MELATONIN 3 MG TAB PO PRN (23:47)
[2024-01-06] MEDS: ACETAMINOPHEN 1,000 MG/100 ML VIAL IV STA (04:02)
[2024-01-06] MEDS: FUROSEMIDE 40 MG TAB PO SCH (08:50)
[2024-01-06 09:41] LABS: BUN Creatinine Ratio 39.6 (10-20); Calcium 10.4 mg/dl (8.6-10.3); Creatinine Clr Calc Pharmacy 14.7 ml/min; Est GFR (African American) 17.1 ml/min; Est GFR (Non-African American) 14.8 ml/min; Potassium 3.9 mmol/L (3.5-5.1)
--- NOTE | 2024-01-06 16:15 | Hospitalist Progress Note ---
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 Likely due to acute on chronic CHF with preserved EF Reduce dose of Lasix to 40mg daily, due to worsening renal function Discontinued IV Lasix 01/04 Start p.o. Lasix 40 mg today 01/05 Monitor I/o, daily weight Continue Spironolactone 12.5mg po daily (2) Acute GI bleeding: Plan: Evaluated by gastroenterology, patient and family declined any workup like EGD or colonoscopy Will continue to monitor hemoglobin for now. Transfuse if hemoglobin drops below 7 -Protonix 40mg IV BID -GI consultation appreciated (3) Hypoxia: Plan: From CHF exacerbation X-ray shows evidence of pulmonary congestion Continue supplemental oxygen currently on 2 L oxygen through nasal cannula Wean as tolerated. (4) Acute blood loss anemia: Plan: Hgb was 11.2 in November 2023. Hgb on arrival 8.8 --> 7.8. Heme positive stools, marked elevation of BUN raises concern for UGIB -Protonix BID -Trend CBC -Transfuse PRBCs x 1 unit for Hgb < 8 with end organ dysfunction (5) Elevated troponin: Plan: Slight elevation in Trop, Possible demand ischemia in setting of acute exacerbation of CHF. Patient denies chest pain. -Telemetry monitoring -Repeat echo showed no change (6) MARJ (acute kidney injury): Plan: MARJ on CKD Some improvement in cr following reduction of laix dose from 80 to 40mg Avoid nephrotoxic's (7) Hypercalcemia: Plan: Resolved (8) Type 2 diabetes mellitus treated with insulin: Plan: Chronic. Overall well controlled with DiaI0G=3.1 -Decreased insulin to Lantus 12u BID -ISS -Goal blood sugar 110 - 140 (9) PAF (paroxysmal atrial fibrillation): Plan: Chronic. Stable. -Continue Metoprolol with caution in suspected active bleed -No anticoagulation (10) Hyperlipidemia: Plan: Chronic. Stable -Continue Pravastatin (11) Hypothyroidism: Plan: Chronic. Stable -Continue Synthroid Plan Patient participating in PT, they recommend SNF rehab. Will need insurance authorization which will need to wait until after the hol. CODE STATUS DNR/DNI DVT prophylaxis SCDs Admission and Anticipated Discharge Date Admission Date: January 02, 2024 Subjective Per nurse, patient was super agitated overnight. Did not sleep well at home. This morning, however, she is alert and awake. She is conversant. She does not report any complaints. No chest pain or shortness of breath Review of Systems Review of Systems: All systems reviewed & are unremarkable except as noted in Subjective Physical Exam Physical Exam: General: Awake, conversant Heart: S1, S2/regular rate and rhythm, no murmur rubs or gallops Lungs: Clear to auscultation bilaterally. Normal effort Abdomen: Soft/nontender/nondistended. No hepatosplenomegaly Extremities: No clubbing/cyanosis. No edema Behavior: Appropriate, cooperative Results & Data Results & Data Vital Signs (Past 12 Hours) Vital Signs Temp Pulse Resp BP Pulse Ox O2 Del Method O2 Flow Rate 01/06/24 15:23 36.3 C L 69 18 94/55 L 93 Nasal Cannula 3 01/06/24 12:00 36.7 C 69 19 113/60 98 Nasal Cannula 2.0 01/06/24 08:00 Nasal Cannula 2 01/06/24 08:00 36.7 C 75 18 113/56 L 98 Room Air Laboratory Results Abnormal lab results 01/05/24 01/05/24 01/06/24 Range/Units 16:24 20:30 08:06 BUN (6-23) mg/dl Creatinine (0.6-1.2) mg/dl BUN/Creatinine Ratio (10-20) Glucose (70-99(Fasting)) mg/dl POC Glucose 215 H 230 H 149 H (70-99) mg/dl Calcium (8.6-10.3) mg/dl 01/06/24 01/06/24 Range/Units 08:47 12:07 BUN 109 H (6-23) mg/dl Creatinine 2.75 H (0.6-1.2) mg/dl BUN/Creatinine Ratio 39.6 H (10-20) Glucose 141 H (70-99(Fasting)) mg/dl POC Glucose 203 H (70-99) mg/dl Calcium 10.4 H (8.6-10.3) mg/dl PG Care Time/CCT Total # of Minutes Spent Total Time Spent with Patient: Total time spent is greater than 50% in coordination of care (as documented) at patient's floor/unit and/or counseling patient: Coding Level of Care Code 78835 SUB INP/OBS CARE 2/35MIN Diagnoses CHF (congestive heart failure) I50.9 Heart failure chronicity: acute Heart failure type: unspecified Acute GI bleeding K92.2 Hypoxia R09.02 Acute blood loss anemia D62 Elevated troponin R79.89 MARJ (acute kidney injury) N17.9 Hypercalcemia E83.52 Type 2 diabetes mellitus treated with insulin E11.9; Z79.4 PAF (paroxysmal atrial fibrillation) I48.0 Hyperlipidemia, unspecified hyperlipidemia type E78.5 Hyperlipidemia type: unspecified Hypothyroidism, unspecified type E03.9 Hypothyroidism type: unspecified (1) CHF (congestive heart failure) Heart failure chronicity: acute Heart failure type: unspecified Qualified Code(s): I50.9 - Heart failure, unspecified (10) Hyperlipidemia Hyperlipidemia type: unspecified Qualified Code(s): E78.5 - Hyperlipidemia, unspecified (11) Hypothyroidism Hypothyroidism type: unspecified Qualified Code(s): E03.9 - Hypothyroidism, unspecified
[2024-01-06] MEDS: SODIUM CHLORIDE 0.65% NA SOLN 45 ML (OCEAN) ONE (17:00)
[2024-01-06] MEDS: QUEtiapine FUMARATE 25 MG TABLET PO SCH (19:51)
[2024-01-07 10:12] LABS: BUN Creatinine Ratio 40.1 (10-20); Creatinine Clr Calc Pharmacy 14.4 ml/min; Est GFR (African American) 16.6 ml/min; Est GFR (Non-African American) 14.4 ml/min; Potassium 3.8 mmol/L (3.5-5.1)
--- NOTE | 2024-01-07 14:02 | Hospitalist Progress Note ---
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 Likely due to acute on chronic CHF with preserved EF Reduce dose of Lasix to 40mg daily, due to worsening renal function Discontinued IV Lasix 01/04 Start p.o. Lasix 40 mg today 01/05. Noted that her creatinine is slowly trending upward. Spoke to the family. Some degree of renal failure is to be expected for breathing comfort. Monitor I/o, daily weight Continue Spironolactone 12.5mg po daily (2) Acute GI bleeding: Plan: Evaluated by gastroenterology, patient and family declined any workup like EGD or colonoscopy Will continue to monitor hemoglobin for now. Transfuse if hemoglobin drops below 7 -Protonix 40mg IV BID -GI consultation appreciated (3) Hypoxia: Plan: From CHF exacerbation X-ray shows evidence of pulmonary congestion Continue supplemental oxygen currently on 2 L oxygen through nasal cannula Wean as tolerated. (4) Acute blood loss anemia: Plan: Hgb was 11.2 in November 2023. Hgb on arrival 8.8 --> 7.8. Heme positive stools, marked elevation of BUN raises concern for UGIB -Protonix BID -Trend CBC -Transfuse PRBCs x 1 unit for Hgb < 8 with end organ dysfunction (5) Elevated troponin: Plan: Slight elevation in Trop, Possible demand ischemia in setting of acute exacerbation of CHF. Patient denies chest pain. -Telemetry monitoring -Repeat echo showed no change (6) MARJ (acute kidney injury): Plan: MARJ on CKD Some improvement in cr following reduction of laix dose from 80 to 40mg Avoid nephrotoxic's Noted that creatinine is trending upward slowly. Some degree of renal failure is to be expected for breathing comfort in the setting of CHF. (7) Hypercalcemia: Plan: Resolved (8) Type 2 diabetes mellitus treated with insulin: Plan: Chronic. Overall well controlled with [id number]=8.1 -Decreased insulin to Lantus 12u BID -ISS -Goal blood sugar 110 - 140 (9) PAF (paroxysmal atrial fibrillation): Plan: Chronic. Stable. -Continue Metoprolol with caution in suspected active bleed -No anticoagulation (10) Hyperlipidemia: Plan: Chronic. Stable -Continue Pravastatin (11) Hypothyroidism: Plan: Chronic. Stable -Continue Synthroid Plan Patient participating in PT, they recommend SNF rehab. Will need insurance authorization which will need to wait until after the hol. CODE STATUS DNR/DNI DVT prophylaxis SCDs Admission and Anticipated Discharge Date Admission Date: January 02, 2024 Subjective Patient feels well. Denies chest pain or shortness of breath. Patient slept well through the night Review of Systems Review of Systems: All systems reviewed & are unremarkable except as noted in Subjective Physical Exam Physical Exam: General: Awake, conversant Heart: S1, S2/regular rate and rhythm, no murmur rubs or gallops Lungs: Clear to auscultation bilaterally. Normal effort Abdomen: Soft/nontender/nondistended. No hepatosplenomegaly Extremities: No clubbing/cyanosis. No edema Behavior: Appropriate, cooperative Results & Data Results & Data Vital Signs (Past 12 Hours) Vital Signs Temp Pulse Pulse Resp BP Pulse Ox O2 Del Method 01/07/24 11:31 36.3 C L 74 18 108/50 L 94 Nasal Cannula 01/07/24 07:43 Nasal Cannula 01/07/24 07:24 77 01/07/24 07:13 36.3 C L 72 18 137/52 L 100 Nasal Cannula 01/07/24 02:48 36.4 C L 74 19 124/65 100 Nasal Cannula O2 Flow Rate 01/07/24 11:31 01/07/24 07:43 1 01/07/24 07:24 01/07/24 07:13 3 01/07/24 02:48 3 Laboratory Results Abnormal lab results 01/06/24 01/06/24 01/07/24 Range/Units 16:54 20:05 09:25 BUN 113 H (6-23) mg/dl Creatinine 2.82 H (0.6-1.2) mg/dl BUN/Creatinine Ratio 40.1 H (10-20) POC Glucose 188 H 189 H (70-99) mg/dl 01/07/24 Range/Units 11:19 BUN (6-23) mg/dl Creatinine (0.6-1.2) mg/dl BUN/Creatinine Ratio (10-20) POC Glucose 106 H (70-99) mg/dl PG Care Time/CCT Total # of Minutes Spent Total Time Spent with Patient: Total time spent is greater than 50% in coordination of care (as documented) at patient's floor/unit and/or counseling patient: Coding Level of Care Code 66858 SUB INP/OBS CARE 2/35MIN Diagnoses CHF (congestive heart failure) I50.9 Heart failure chronicity: acute Heart failure type: unspecified Acute GI bleeding K92.2 Hypoxia R09.02 Acute blood loss anemia D62 Elevated troponin R79.89 MARJ (acute kidney injury) N17.9 Hypercalcemia E83.52 Type 2 diabetes mellitus treated with insulin E11.9; Z79.4 PAF (paroxysmal atrial fibrillation) I48.0 Hyperlipidemia, unspecified hyperlipidemia type E78.5 Hyperlipidemia type: unspecified Hypothyroidism, unspecified type E03.9 Hypothyroidism type: unspecified (1) CHF (congestive heart failure) Heart failure chronicity: acute Heart failure type: unspecified Qualified Code(s): I50.9 - Heart failure, unspecified (10) Hyperlipidemia Hyperlipidemia type: unspecified Qualified Code(s): E78.5 - Hyperlipidemia, unspecified (11) Hypothyroidism Hypothyroidism type: unspecified Qualified Code(s): E03.9 - Hypothyroidism, unspecified
[2024-01-08 10:24] LABS: BUN Creatinine Ratio 42.3 (10-20); Calcium 9.8 mg/dl (8.6-10.3); Creatinine Clr Calc Pharmacy 14.5 ml/min; Est GFR (African American) 16.7 ml/min; Est GFR (Non-African American) 14.4 ml/min; Potassium 3.8 mmol/L (3.5-5.1)
[2024-01-08 11:47] LABS: Hematocrit (blood only) 24.9 % (37.0-47.0); Hemoglobin 8.3 g/dl (12.0-16.0); Mean Corpuscular Hemoglobin 31.2 pg (25.0-34.0); Mean Corpuscular Hgb Conc 33.3 g/dL (32.0-36.0); Mean Corpuscular Volume 93.6 fL (80.0-100.0); Mean Platelet Volume 11.1 fL (9.4-12.4); Platelet Count 130 K/uL (130-400); RDW Coefficient of Variation 15.2 % (11.5-14.5); RDW Standard Deviation 51.7 fL (36.4-46.3); Red Blood Count 2.66 M/uL (4.20-5.40); White Blood Count 8.24 K/ul (4.8-10.8)
--- NOTE | 2024-01-08 15:40 | Hospitalist Progress Note ---
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 Likely due to acute on chronic CHF with preserved EF Reduce dose of Lasix to 40mg daily, due to worsening renal function Discontinued IV Lasix 01/04 Started p.o. Lasix 40 mg 01/05. Noted that her creatinine slowly trended upward and now stabilized at 2.8. Spoke to the family. Some degree of renal failure is to be expected for breathing comfort. Monitor I/o, daily weight Discontinue spironolactone 12.5mg po daily (2) Acute GI bleeding: Plan: Evaluated by gastroenterology, patient and family declined any workup like EGD or colonoscopy Will continue to monitor hemoglobin for now. Transfuse if hemoglobin drops below 7 -Protonix 40mg IV BID -GI consultation appreciated (3) Hypoxia: Plan: From CHF exacerbation X-ray shows evidence of pulmonary congestion Continue supplemental oxygen currently on 2 L oxygen through nasal cannula Wean as tolerated. (4) Acute blood loss anemia: Plan: Hgb was 11.2 in November 2023. Hgb on arrival 8.8 --> 7.8. Heme positive stools, marked elevation of BUN raises concern for UGIB -Protonix BID -Trend CBC -Transfuse PRBCs x 1 unit for Hgb < 8 with end organ dysfunction (5) Elevated troponin: Plan: Slight elevation in Trop, Possible demand ischemia in setting of acute exacerbation of CHF. Patient denies chest pain. -Telemetry monitoring -Repeat echo showed no change (6) MARJ (acute kidney injury): Plan: MARJ on CKD Some improvement in cr following reduction of laix dose from 80 to 40mg Avoid nephrotoxic's Noted that creatinine trended up slowly and has stabilized at 2.8 Some degree of renal failure is to be expected for breathing comfort in the setting of CHF. Discontinue spironolactone (7) Hypercalcemia: Plan: Resolved (8) Type 2 diabetes mellitus treated with insulin: Plan: Chronic. Overall well controlled with [id number]=7.1 -Decreased insulin to Lantus 12u BID -ISS -Goal blood sugar 110 - 140 (9) PAF (paroxysmal atrial fibrillation): Plan: Chronic. Stable. -Continue Metoprolol with caution in suspected active bleed -No anticoagulation (10) Hyperlipidemia: Plan: Chronic. Stable -Continue Pravastatin (11) Hypothyroidism: Plan: Chronic. Stable -Continue Synthroid Plan Patient participating in PT, they recommend SNF rehab. optimization manager working on placement CODE STATUS DNR/DNI DVT prophylaxis SCDs Admission and Anticipated Discharge Date Admission Date: January 02, 2024 Subjective Patient feels well. Denies chest pain or shortness of breath. Review of Systems Review of Systems: All systems reviewed & are unremarkable except as noted in Subjective Physical Exam Physical Exam: General: Awake, conversant Heart: S1, S2/regular rate and rhythm, no murmur rubs or gallops Lungs: Clear to auscultation bilaterally. Normal effort Abdomen: Soft/nontender/nondistended. No hepatosplenomegaly Extremities: No clubbing/cyanosis. No edema Behavior: Appropriate, cooperative Results & Data Results & Data Vital Signs (Past 12 Hours) Vital Signs Temp Pulse Pulse Resp BP BP Pulse Ox 01/08/24 15:06 36.4 C L 73 17 115/67 95 01/08/24 11:15 75 16 129/55 L 96 01/08/24 10:46 01/08/24 07:51 73 01/08/24 07:08 36.3 C L 77 17 115/43 L 94 O2 Del Method O2 Flow Rate 01/08/24 15:06 Nasal Cannula 01/08/24 11:15 Nasal Cannula 01/08/24 10:46 Nasal Cannula 1.5 01/08/24 07:51 01/08/24 07:08 Nasal Cannula 1.5 Laboratory Results Abnormal lab results 01/07/24 01/07/24 01/08/24 Range/Units 16:07 20:58 07:07 RBC (4.20-5.40) M/uL Hgb (12.0-16.0) g/dl Hct (37.0-47.0) % RDW Std Deviation (36.4-46.3) fL RDW Coeff of Patti (11.5-14.5) % BUN (6-23) mg/dl Creatinine (0.6-1.2) mg/dl BUN/Creatinine Ratio (10-20) Glucose (70-99(Fasting)) mg/dl POC Glucose 196 H 170 H 102 H (70-99) mg/dl 01/08/24 01/08/24 01/08/24 Range/Units 09:45 11:12 11:21 RBC 2.66 L (4.20-5.40) M/uL Hgb 8.3 L (12.0-16.0) g/dl Hct 24.9 L (37.0-47.0) % RDW Std Deviation 51.7 H (36.4-46.3) fL RDW Coeff of Patti 15.2 H (11.5-14.5) % BUN 119 H (6-23) mg/dl Creatinine 2.81 H (0.6-1.2) mg/dl BUN/Creatinine Ratio 42.3 H (10-20) Glucose 236 H (70-99(Fasting)) mg/dl POC Glucose 239 H (70-99) mg/dl PG Care Time/CCT Total # of Minutes Spent Total Time Spent with Patient: Total time spent is greater than 50% in coordination of care (as documented) at patient's floor/unit and/or counseling patient: Coding Level of Care Code 57704 SUB INP/OBS CARE 2/35MIN Diagnoses CHF (congestive heart failure) I50.9 Heart failure chronicity: acute Heart failure type: unspecified Acute GI bleeding K92.2 Hypoxia R09.02 Acute blood loss anemia D62 Elevated troponin R79.89 MARJ (acute kidney injury) N17.9 Hypercalcemia E83.52 Type 2 diabetes mellitus treated with insulin E11.9; Z79.4 PAF (paroxysmal atrial fibrillation) I48.0 Hyperlipidemia, unspecified hyperlipidemia type E78.5 Hyperlipidemia type: unspecified Hypothyroidism, unspecified type E03.9 Hypothyroidism type: unspecified (1) CHF (congestive heart failure) Heart failure chronicity: acute Heart failure type: unspecified Qualified Code(s): I50.9 - Heart failure, unspecified (10) Hyperlipidemia Hyperlipidemia type: unspecified Qualified Code(s): E78.5 - Hyperlipidemia, unspecified (11) Hypothyroidism Hypothyroidism type: unspecified Qualified Code(s): E03.9 - Hypothyroidism, unspecified
--- NOTE | 2024-01-09 15:47 | Hospitalist Progress Note ---
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 Likely due to acute on chronic CHF with preserved EF Reduce dose of Lasix to 40mg daily, due to worsening renal function Discontinued IV Lasix 01/04 Started p.o. Lasix 40 mg 01/05. Noted that her creatinine slowly trended upward and now stabilized at 2.8. Spoke to the family. Some degree of renal failure is to be expected for breathing comfort. Monitor I/o, daily weight Discontinued spironolactone (2) Acute GI bleeding: Plan: Evaluated by gastroenterology, patient and family declined any workup like EGD or colonoscopy Will continue to monitor hemoglobin for now. Transfuse if hemoglobin drops below 7 -Protonix 40mg IV BID -GI consultation appreciated (3) Hypoxia: Plan: From CHF exacerbation X-ray shows evidence of pulmonary congestion Continue supplemental oxygen currently on 2 L oxygen through nasal cannula Wean as tolerated. (4) Acute blood loss anemia: Plan: Hgb was 11.2 in November 2023. Hgb on arrival 8.8 --> 7.8. Heme positive stools, marked elevation of BUN raises concern for UGIB -Protonix BID -Trend CBC -Transfuse PRBCs x 1 unit for Hgb < 8 with end organ dysfunction (5) Elevated troponin: Plan: Slight elevation in Trop, Possible demand ischemia in setting of acute exacerbation of CHF. Patient denies chest pain. -Telemetry monitoring -Repeat echo showed no change (6) MARJ (acute kidney injury): Plan: MARJ on CKD Some improvement in cr following reduction of laix dose from 80 to 40mg Avoid nephrotoxic's Noted that creatinine trended up slowly and has stabilized at 2.8 Some degree of renal failure is to be expected for breathing comfort in the set ting of CHF. Discontinued spironolactone (7) Hypercalcemia: Plan: Resolved (8) Type 2 diabetes mellitus treated with insulin: Plan: Chronic. Overall well controlled with VuzX3Y=6.1 -Decreased insulin to Lantus 12u BID -ISS -Goal blood sugar 110 - 140 (9) PAF (paroxysmal atrial fibrillation): Plan: Chronic. Stable. -Continue Metoprolol with caution in suspected active bleed -No anticoagulation (10) Hyperlipidemia: Plan: Chronic. Stable -Continue Pravastatin (11) Hypothyroidism: Plan: Chronic. Stable -Continue Synthroid Plan Patient participating in PT, they recommend SNF rehab. entry level manager working on placement CODE STATUS DNR/DNI DVT prophylaxis SCDs Admission and Anticipated Discharge Date Admission Date: January 02, 2024 Subjective Patient feels well. Denies chest pain or shortness of breath Review of Systems Review of Systems: All systems reviewed & are unremarkable except as noted in Subjective Physical Exam Physical Exam: General: Awake, conversant Heart: S1, S2/regular rate and rhythm, no murmur rubs or gallops Lungs: Clear to auscultation bilaterally. Normal effort Abdomen: Soft/nontender/nondistended. No hepatosplenomegaly Extremities: No clubbing/cyanosis. No edema Behavior: Appropriate, cooperative Results & Data Results & Data Vital Signs (Past 12 Hours) Vital Signs Temp Pulse Pulse Resp BP Pulse Ox O2 Del Method 01/09/24 11:46 37.0 C 81 20 128/51 L 94 Nasal Cannula 01/09/24 09:39 73 01/09/24 07:57 36.7 C 82 20 119/42 L 91 Room Air 01/09/24 07:56 Nasal Cannula O2 Flow Rate 01/09/24 11:46 2 01/09/24 09:39 01/09/24 07:57 01/09/24 07:56 1 Laboratory Results Abnormal lab results 01/08/24 01/08/24 01/09/24 Range/Units 16:57 20:36 07:30 POC Glucose 233 H 231 H 166 H (70-99) mg/dl 01/09/24 Range/Units 11:46 POC Glucose 260 H (70-99) mg/dl PG Care Time/CCT Total # of Minutes Spent Total Time Spent with Patient: Total time spent is greater than 50% in coordination of care (as documented) at patient's floor/unit and/or counseling patient: Coding Level of Care Code 52498 SUB INP/OBS CARE 2/35MIN Diagnoses CHF (congestive heart failure) I50.9 Heart failure chronicity: acute Heart failure type: unspecified Acute GI bleeding K92.2 Hypoxia R09.02 Acute blood loss anemia D62 Elevated troponin R79.89 MARJ (acute kidney injury) N17.9 Hypercalcemia E83.52 Type 2 diabetes mellitus treated with insulin E11.9; Z79.4 PAF (paroxysmal atrial fibrillation) I48.0 Hyperlipidemia, unspecified hyperlipidemia type E78.5 Hyperlipidemia type: unspecified Hypothyroidism, unspecified type E03.9 Hypothyroidism type: unspecified (1) CHF (congestive heart failure) Heart failure chronicity: acute Heart failure type: unspecified Qualified Code(s): I50.9 - Heart failure, unspecified (10) Hyperlipidemia Hyperlipidemia type: unspecified Qualified Code(s): E78.5 - Hyperlipidemia, unspecified (11) Hypothyroidism Hypothyroidism type: unspecified Qualified Code(s): E03.9 - Hypothyroidism, u nspecified
--- NOTE | 2024-01-10 14:30 | Hospitalist Progress Note ---
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 Likely due to acute on chronic CHF with preserved EF Reduce dose of Lasix to 40mg daily, due to worsening renal function Discontinued IV Lasix 01/04 Started p.o. Lasix 40 mg 01/05. Noted that her creatinine slowly trended upward and now stabilized at 2.8. Spoke to the family. Some degree of renal failure is to be expected for breathing comfort. Discontinued spironolactone (2) Acute GI bleeding: Plan: Evaluated by gastroenterology, patient and family declined any workup like EGD or colonoscopy Will continue to monitor hemoglobin for now. Transfuse if hemoglobin drops below 7 -Protonix 40mg IV BID -GI consultation appreciated (3) Hypoxia: Plan: From CHF exacerbation X-ray shows evidence of pulmonary congestion Continue supplemental oxygen currently on 2 L oxygen through nasal cannula Wean as tolerated. (4) Acute blood loss anemia: Plan: Hgb was 11.2 in November 2023. Hgb on arrival 8.8 --> 7.8. Heme positive stools, marked elevation of BUN raises concern for UGIB -Protonix BID -Trend CBC -Transfuse PRBCs x 1 unit for Hgb < 8 with end organ dysfunction (5) Elevated troponin: Plan: Slight elevation in Trop, Possible demand ischemia in setting of acute exacerbation of CHF. Patient denies chest pain. -Telemetry monitoring -Repeat echo showed no change (6) MARJ (acute kidney injury): Plan: MARJ on CKD Some improvement in cr following reduction of laix dose from 80 to 40mg Avoid nephrotoxic's Noted that creatinine trended up slowly and has stabilized at 2.8 Some degree of renal failure is to be expected for breathing comfort in the setting of CHF. Discontinued spironolactone (7) Hypercalcemia: Plan: Resolved (8) Type 2 diabetes mellitus treated with insulin: Plan: Chronic. Overall well controlled with WtdT5U=2.1 -Decreased insulin to Lantus 12u BID -ISS -Goal blood sugar 110 - 140 (9) PAF (paroxysmal atrial fibrillation): Plan: Chronic. Stable. -Continue Metoprolol with caution in suspected active bleed -No anticoagulation (10) Hyperlipidemia: Plan: Chronic. Stable -Continue Pravastatin (11) Hypothyroidism: Plan: Chronic. Stable -Continue Synthroid Plan Patient participating in PT, they recommend SNF rehab. exhibits manager working on placement CODE STATUS DNR/DNI DVT prophylaxis SCDs Admission and Anticipated Discharge Date Admission Date: January 02, 2024 Subjective Patient feels well. Denies chest pain or shortness of breath. Review of Systems Review of Systems: All systems reviewed & are unremarkable except as noted in Subjective Physical Exam Physical Exam: General: Awake, conversant Heart: S1, S2/regular rate and rhythm, no murmur rubs or gallops Lungs: Clear to auscultation bilaterally. Normal effort Abdomen: Soft/nontender/nondistended. No hepatosplenomegaly Extremities: No clubbing/cyanosis. No edema Behavior: Appropriate, cooperative Results & Data Results & Data Vital Signs (Past 12 Hours) Vital Signs Temp Pulse Resp BP Pulse Ox O2 Del Method O2 Flow Rate 01/10/24 11:25 36.9 C 71 18 103/34 L 98 Nasal Cannula 2 01/10/24 08:04 36.3 C L 71 20 124/45 L 99 Room Air 01/10/24 03:00 36.5 C 70 16 126/52 L 92 Nasal Cannula 1 PG Care Time/CCT Total # of Minutes Spent Total Time Spent with Patient: Total time spent is greater than 50% in coordination of care (as documented) at patient's floor/unit and/or counseling patient: Coding Level of Care Code 89294 SUB INP/OBS CARE 2/35MIN Diagnoses CHF (congestive heart failure) I50.9 Heart failure chronicity: acute Heart failure type: unspecified Acute GI bleeding K92.2 Hypoxia R09.02 Acute blood loss anemia D62 Elevated troponin R79.89 MARJ (acute kidney injury) N17.9 Hypercalcemia E83.52 Type 2 diabetes mellitus treated with insulin E11.9; Z79.4 PAF (paroxysmal atrial fibrillation) I48.0 Hyperlipidemia, unspecified hyperlipidemia type E78.5 Hyperlipidemia type: unspecified Hypothyroidism, unspecified type E03.9 Hypothyroidism type: unspecified (1) CHF (congestive heart failure) Heart failure chronicity: acute Heart failure type: unspecified Qualified Code(s): I50.9 - Heart failure, unspecified (10) Hyperlipidemia Hyperlipidemia type: unspecified Qualified Code(s): E78.5 - Hyperlipidemia, unspecified (11) Hypothyroidism Hypothyroidism type: unspecified Qualified Code(s): E03.9 - Hypothyroidism, unspecified
--- NOTE | 2024-01-11 16:52 | Hospitalist Progress Note ---
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 Likely due to acute on chronic CHF with preserved EF Reduce dose of Lasix to 40mg daily, due to worsening renal function Discontinued IV Lasix 01/04 Started p.o. Lasix 40 mg 01/05. Noted that her creatinine slowly trended upward and now stabilized at 2.8. Spoke to the family. Some degree of renal failure is to be expected for breathing comfort. Discontinued spironolactone (2) Acute GI bleeding: Plan: Evaluated by gastroenterology, patient and family declined any workup like EGD or colonoscopy Will continue to monitor hemoglobin for now. Transfuse if hemoglobin drops below 7 -Protonix 40mg IV BID -GI consultation appreciated (3) Hypoxia: Plan: From CHF exacerbation X-ray shows evidence of pulmonary congestion Continue supplemental oxygen currently on 2 L oxygen through nasal cannula Wean as tolerated. (4) Acute blood loss anemia: Plan: Hgb was 11.2 in November 2023. Hgb on arrival 8.8 --> 7.8. Heme positive stools, marked elevation of BUN raises concern for UGIB -Protonix BID -Trend CBC -Transfuse PRBCs x 1 unit for Hgb < 8 with end organ dysfunction (5) Elevated troponin: Plan: Slight elevation in Trop, Possible demand ischemia in setting of acute exacerbation of CHF. Patient denies chest pain. -Telemetry monitoring -Repeat echo showed no change (6) MARJ (acute kidney injury): Plan: MARJ on CKD Some improvement in cr following reduction of laix dose from 80 to 40mg Avoid nephrotoxic's Noted that creatinine trended up slowly and has stabilized at 2.8 Some degree of renal failure is to be expected for breathing comfort in the setting of CHF. Discontinued spironolactone (7) Hypercalcemia: Plan: Resolved (8) Type 2 diabetes mellitus treated with insulin: Plan: Chronic. Overall well controlled with [id number]=7.1 -Decreased insulin to Lantus 12u BID -ISS -Goal blood sugar 110 - 140 (9) PAF (paroxysmal atrial fibrillation): Plan: Chronic. Stable. -Continue Metoprolol with caution in suspected active bleed -No anticoagulation (10) Hyperlipidemia: Plan: Chronic. Stable -Continue Pravastatin (11) Hypothyroidism: Plan: Chronic. Stable -Continue Synthroid Plan Patient participating in PT, they recommend SNF rehab. Peer to peer completed. Insurance denied [employer]. Case management working on placement CODE STATUS DNR/DNI DVT prophylaxis SCDs Admission and Anticipated Discharge Date Admission Date: January 02, 2024 Subjective Patient feels well overall. Denies chest pain or shortness of breath. Review of Systems Review of Systems: All systems reviewed & are unremarkable except as noted in Subjective Physical Exam Physical Exam: General: Awake, conversant Heart: S1, S2/regular rate and rhythm, no murmur rubs or gallops Lungs: Clear to auscultation bilaterally. Normal effort Abdomen: Soft/nontender/nondistended. No hepatosplenomegaly Extremities: No clubbing/cyanosis. No edema Behavior: Appropriate, cooperative Results & Data Results & Data Vital Signs (Past 12 Hours) Vital Signs Temp Pulse Pulse Resp BP Pulse Ox O2 Del Method 01/11/24 16:03 36.7 C 73 20 105/51 L 95 Nasal Cannula 01/11/24 11:36 36.9 C 70 19 127/78 99 Nasal Cannula 01/11/24 11:00 36.5 C 72 16 183/81 H 95 Room Air 01/11/24 07:51 36.2 C L 73 24 122/46 L 98 Nasal Cannula 01/11/24 07:00 71 O2 Flow Rate 01/11/24 16:03 1 01/11/24 11:36 1 01/11/24 11:00 01/11/24 07:51 1 01/11/24 07:00 Laboratory Results Abnormal lab results 01/10/24 01/11/24 01/11/24 Range/Units 20:35 07:49 11:38 POC Glucose 165 H 124 H 196 H (70-99) mg/dl 01/11/24 Range/Units 16:46 POC Glucose 111 H (70-99) mg/dl PG Care Time/CCT Total # of Minutes Spent Total Time Spent with Patient: Total time spent is greater than 50% in coordination of care (as documented) at patient's floor/unit and/or counseling patient: Coding Level of Care Code 46640 SUB INP/OBS CARE 2/35MIN Diagnoses CHF (congestive heart failure) I50.9 Heart failure chronicity: acute Heart failure type: unspecified Acute GI bleeding K92.2 Hypoxia R09.02 Acute blood loss anemia D62 Elevated troponin R79.89 MARJ (acute kidney injury) N17.9 Hypercalcemia E83.52 Type 2 diabetes mellitus treated with insulin E11.9; Z79.4 PAF (paroxysmal atrial fibrillation) I48.0 Hyperlipidemia, unspecified hyperlipidemia type E78.5 Hyperlipidemia type: unspecified Hypothyroidism, unspecified type E03.9 Hypothyroidism type: unspecified (1) CHF (congestive heart failure) Heart failure chronicity: acute Heart failure type: unspecified Qualified Code(s): I50.9 - Heart failure, unspecified (10) Hyperlipidemia Hyperlipidemia type: unspecified Qualified Code(s): E78.5 - Hyperlipidemia, unspecified (11) Hypothyroidism Hypothyroidism type: unspecified Qualified Code(s): E03.9 - Hypothyroidism, unspecified
--- NOTE | 2024-01-12 13:25 | Hospitalist Progress Note ---
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 Likely due to acute on chronic CHF with preserved EF Reduce dose of Lasix to 40mg daily, due to worsening renal function Discontinued IV Lasix 01/04 Started p.o. Lasix 40 mg 01/05. Noted that her creatinine slowly trended upward and now stabilized at 2.8. Spoke to the family. Some degree of renal failure is to be expected for breathing comfort. Discontinued spironolactone Stable Transfer to [facility] (2) Acute GI bleeding: Plan: Evaluated by gastroenterology, patient and family declined any workup like EGD or colonoscopy Will continue to monitor hemoglobin for now. Transfuse if hemoglobin drops below 7 -Protonix 40mg p.o. BID -GI consultation appreciated (3) Hypoxia: Plan: From CHF exacerbation X-ray shows evidence of pulmonary congestion Continue supplemental oxygen currently on 2 L oxygen through nasal cannula Wean as tolerated. (4) Acute blood loss anemia: Plan: Hgb was 11.2 in November 2023. Hgb on arrival 8.8 --> 7.8. Heme positive stools, marked elevation of BUN raises concern for UGIB -Protonix BID -Trend CBC -Transfuse PRBCs x 1 unit for Hgb < 8 with end organ dysfunction (5) Elevated troponin: Plan: Slight elevation in Trop, Possible demand ischemia in setting of acute exacerbation of CHF. Patient denies chest pain. -Telemetry monitoring -Repeat echo showed no change (6) MARJ (acute kidney injury): Plan: MARJ on CKD Some improvement in cr following reduction of laix dose from 80 to 40mg Avoid nephrotoxic's Noted that creatinine trended up slowly and has stabilized at 2.8 Some degree of renal failure is to be expected for breathing comfort in the s etting of CHF. Discontinued spironolactone (7) Hypercalcemia: Plan: Resolved (8) Type 2 diabetes mellitus treated with insulin: Plan: Chronic. Overall well controlled with VyvR5H=6.1 -Decreased insulin to Lantus 12u BID -ISS -Goal blood sugar 110 - 140 (9) PAF (paroxysmal atrial fibrillation): Plan: Chronic. Stable. -Continue Metoprolol with caution in suspected active bleed -No anticoagulation (10) Hyperlipidemia: Plan: Chronic. Stable -Continue Pravastatin (11) Hypothyroidism: Plan: Chronic. Stable -Continue Synthroid Plan Patient participating in PT, they recommend SNF rehab. Peer to peer completed. Insurance denied [employer]. Case management working on placement to [facility]. Likely Sunday. CODE STATUS DNR/DNI DVT prophylaxis SCDs Admission and Anticipated Discharge Date Admission Date: January 02, 2024 Subjective Patient feels well overall. Denies chest pain or shortness of breath. She says that she is getting tired of waiting. Review of Systems Review of Systems: All systems reviewed & are unremarkable except as noted in Subjective Physical Exam Physical Exam: General: Awake, conversant Heart: S1, S2/regular rate and rhythm, no murmur rubs or gallops Lungs: Clear to auscultation bilaterally. Normal effort Abdomen: Soft/nontender/nondistended. No hepatosplenomegaly Extremities: No clubbing/cyanosis. No edema Behavior: Appropriate, cooperative Results & Data Results & Data Vital Signs (Past 12 Hours) Vital Signs Temp Pulse Pulse Resp BP Pulse Ox O2 Del Method 01/12/24 11:55 36.9 C 70 20 115/36 L 97 Nasal Cannula 01/12/24 07:53 36.5 C 72 22 124/43 L 97 Nasal Cannula 01/12/24 07:00 75 01/12/24 03:19 36.5 C 71 18 120/52 L 98 Nasal Cannula O2 Flow Rate 01/12/24 11:55 2 01/12/24 07:53 2 01/12/24 07:00 01/12/24 03:19 1 Laboratory Results Abnormal lab results 01/11/24 01/11/24 01/12/24 Range/Units 16:46 20:24 07:53 POC Glucose 111 H 227 H 137 H (70-99) mg/dl 01/12/24 Range/Units 11:57 POC Glucose 115 H (70-99) mg/dl PG Care Time/CCT Total # of Minutes Spent Total Time Spent with Patient: Total time spent is greater than 50% in coordination of care (as documented) at patient's floor/unit and/or counseling patient: Coding Level of Care Code 85180 SUB INP/OBS CARE MIN Diagnoses CHF (congestive heart failure) I50.9 Heart failure chronicity: acute Heart failure type: unspecified Acute GI bleeding K92.2 Hypoxia R09.02 Acute blood loss anemia D62 Elevated troponin R79.89 MARJ (acute kidney injury) N17.9 Hypercalcemia E83.52 Type 2 diabetes mellitus treated with insulin E11.9; Z79.4 PAF (paroxysmal atrial fibrillation) I48.0 Hyperlipidemia, unspecified hyperlipidemia type E78.5 Hyperlipidemia type: unspecified Hypothyroidism, unspecified type E03.9 Hypothyroidism type: unspecified (1) CHF (congestive heart failure) Heart failure chronicity: acute Heart failure type: unspecified Qualified Code(s): I50.9 - Heart failure, unspecified (10) Hyperlipidemia Hyperlipidemia type: unspecified Qualified Code(s): E78.5 - Hyperlipidemia, unspecified (11) Hypothyroidism Hypothyroidism type: unspecified Qualified Code(s): E03.9 - Hypothyroidism, unspecified
[2024-01-12] MEDS: PANTOprazole 40 MG TAB PO SCH (21:34)
[2024-01-13 10:27] LABS: Hematocrit (blood only) 21.2 % (37.0-47.0); Hemoglobin 6.9 g/dl (12.0-16.0); Mean Corpuscular Hgb Conc 32.5 g/dL (32.0-36.0); Mean Corpuscular Volume 92.2 fL (80.0-100.0); Mean Platelet Volume 10.6 fL (9.4-12.4); Nucleated RBC # (auto) 0.02 K/uL (0.00-0.12); Nucleated RBC % (auto) 0.3 %; Platelet Count 142 K/uL (130-400); RDW Standard Deviation 50.2 fL (36.4-46.3); White Blood Count 7.51 K/ul (4.8-10.8)
[2024-01-13 10:28] LABS: BUN Creatinine Ratio 53.1 (10-20); Calcium 10.1 mg/dl (8.6-10.3); Creatinine Clr Calc Pharmacy 16.9 ml/min; Est GFR (African American) 19.9 ml/min; Est GFR (Non-African American) 17.2 ml/min; Potassium 3.9 mmol/L (3.5-5.1)
[2024-01-13] MEDS ORDERED: SODIUM CHLORIDE 0.9% 250 ML IV PRN (10:48)
--- NOTE | 2024-01-13 14:41 | Hospitalist Progress Note ---
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 Likely due to acute on chronic CHF with preserved EF Reduce dose of Lasix to 40mg daily, due to worsening renal function Discontinued IV Lasix 01/04 Started p.o. Lasix 40 mg 01/05. Noted that her creatinine slowly trended upward and now stabilized at 2.8. Spoke to the family. Some degree of renal failure is to be expected for breathing comfort. Discontinued spironolactone Stable Transfer to [facility] (2) Acute GI bleeding: Plan: Evaluated by gastroenterology, patient and family declined any workup like EGD or colonoscopy Hemoglobin 6.9 today. Will transfuse a unit of blood -Protonix 40mg p.o. BID -GI consultation appreciated (3) Hypoxia: Plan: From CHF exacerbation X-ray shows evidence of pulmonary congestion Continue supplemental oxygen currently on 2 L oxygen through nasal cannula Wean as tolerated. (4) Acute blood loss anemia: Plan: Hgb was 11.2 in November 2023. Hgb on arrival 8.8 --> 7.8. Heme positive stools, marked elevation of BUN raises concern for UGIB -Protonix BID -Trend CBC -Transfuse PRBCs x 1 unit for Hgb < 8 with end organ dysfunction 01/12: Hemoglobin 6.9. Transfuse today (5) Elevated troponin: Plan: Slight elevation in Trop, Possible demand ischemia in setting of acute exacerbation of CHF. Patient denies chest pain. -Telemetry monitoring -Repeat echo showed no change (6) MARJ (acute kidney injury): Plan: MARJ on CKD Some improvement in cr following reduction of laix dose from 80 to 40mg Avoid nephrotoxic's Noted that creatinine trended up slowly and has stabilized at 2.8 Some degree of renal failure is to be expected for breathing comfort in the setting of CHF. Discontinued spironolactone (7) Hypercalcemia: Plan: Resolved (8) Type 2 diabetes mellitus treated with insulin: Plan: Chronic. Overall well controlled with HugI5C=1.1 -Decreased insulin to Lantus 12u BID -ISS -Goal blood sugar 110 - 140 (9) PAF (paroxysmal atrial fibrillation): Plan: Chronic. Stable. -Continue Metoprolol with caution in suspected active bleed -No anticoagulation (10) Hyperlipidemia: Plan: Chronic. Stable -Continue Pravastatin (11) Hypothyroidism: Plan: Chronic. Stable -Continue Synthroid Plan Patient participating in PT, they recommend SNF rehab. Peer to peer completed. Insurance denied [employer]. Case management working on placement to [facility]. Likely Sunday. CODE STATUS DNR/DNI DVT prophylaxis SCDs Admission and Anticipated Discharge Date Admission Date: January 02, 2024 Subjective Patient feels well. Denies chest pain or shortness of breath. She says she is tired of waiting in the hospital. Review of Systems Review of Systems: All systems reviewed & are unremarkable except as noted in Subjective Physical Exam Physical Exam: General: Awake, conversant Heart: S1, S2/regular rate and rhythm, no murmur rubs or gallops Lungs: Clear to auscultation bilaterally. Normal effort Abdomen: Soft/nontender/nondistended. No hepatosplenomegaly Extremities: No clubbing/cyanosis. No edema Behavior: Appropriate, cooperative Results & Data Results & Data Vital Signs (Past 12 Hours) Vital Signs Temp Pulse Pulse Resp BP BP Pulse Ox 01/13/24 14:15 36.7 C 76 16 114/57 L 01/13/24 14:00 36.4 C L 75 16 103/38 L 97 01/13/24 13:39 36.4 C L 74 16 89/42 L 92 01/13/24 10:36 01/13/24 08:37 36.5 C 118 H 17 111/34 L 96 O2 Del Method O2 Flow Rate 01/13/24 14:15 01/13/24 14:00 2 01/13/24 13:39 2 01/13/24 10:36 Nasal Cannula 2 01/13/24 08:37 Nasal Cannula 2 Laboratory Results Abnormal lab results 01/12/24 01/12/24 01/13/24 Range/Units 16:43 21:23 07:56 RBC (4.20-5.40) M/uL Hgb (12.0-16.0) g/dl Hct (37.0-47.0) % RDW Std Deviation (36.4-46.3) fL RDW Coeff of Patti (11.5-14.5) % Sodium (136-145) mmol/L BUN (6-23) mg/dl Creatinine (0.6-1.2) mg/dl BUN/Creatinine Ratio (10-20) Glucose (70-99(Fasting)) mg/dl POC Glucose 264 H 298 H 144 H (70-99) mg/dl Antibody Screen Crossmatch 01/13/24 01/13/24 01/13/24 Range/Units 09:56 11:21 11:28 RBC 2.30 L (4.20-5.40) M/uL Hgb 6.9 L* (12.0-16.0) g/dl Hct 21.2 L (37.0-47.0) % RDW Std Deviation 50.2 H (36.4-46.3) fL RDW Coeff of Patti 15.0 H (11.5-14.5) % Sodium 135 L (136-145) mmol/L BUN 129 H (6-23) mg/dl Creatinine 2.43 H (0.6-1.2) mg/dl BUN/Creatinine Ratio 53.1 H (10-20) Glucose 227 H (70-99(Fasting)) mg/dl POC Glucose 250 H (70-99) mg/dl Antibody Screen POSITIVE A Crossmatch See Detail PG Care Time/CCT Total # of Minutes Spent Total Time Spent with Patient: Total time spent is greater than 50% in coordination of care (as documented) at patient's floor/unit and/or counseling patient: Coding Level of Care Code 13001 SUB INP/OBS CARE 235MIN Diagnoses CHF (congestive heart failure) I50.9 Heart failure chronicity: acute Heart failure type: unspecified Acute GI bleeding K92.2 Hypoxia R09.02 Acute blood loss anemia D62 Elevated troponin R79.89 MARJ (acute kidney injury) N17.9 Hypercalcemia E83.52 Type 2 diabetes mellitus treated with insulin E11.9; Z79.4 PAF (paroxysmal atrial fibrillation) I48.0 Hyperlipidemia, unspecified hyperlipidemia type E78.5 Hyperlipidemia type: unspecified Hypothyroidism, unspecified type E03.9 Hypothyroidism type: unspecified (1) CHF (congestive heart failure) Heart failure chronicity: acute Heart failure type: unspecified Qualified Code(s): I50.9 - Heart failure, unspecified (10) Hyperlipidemia Hyperlipidemia type: unspecified Qualified Code(s): E78.5 - Hyperlipidemia, unspecified (11) Hypothyroidism Hypothyroidism type: unspecified Qualified Code(s): E03.9 - Hypothyroidism, unspecified
[2024-01-14 07:28] LABS: Hematocrit (blood only) 22.9 % (37.0-47.0); Hemoglobin 7.3 g/dl (12.0-16.0)
[2024-01-14] MEDS ORDERED: SODIUM CHLORIDE 0.9% 250 ML IV PRN (08:02)
--- NOTE | 2024-01-14 15:41 | Hospitalist Progress Note ---
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 Likely due to acute on chronic CHF with preserved EF Reduce dose of Lasix to 40mg daily, due to worsening renal function Discontinued IV Lasix 01/04 Started p.o. Lasix 40 mg 01/05. Noted that her creatinine slowly trended upward and now stabilized at 2.8. Spoke to the family. Some degree of renal failure is to be expected for breathing comfort. Discontinued spironolactone Stable Held p.o. Lasix and metoprolol this morning for borderline hypotension (2) Acute GI bleeding: Plan: Evaluated by gastroenterology, patient and family declined any workup like EGD or colonoscopy Hemoglobin 7.3 today after a unit of blood transfusion 01/12 This morning she was slightly hypotensive and thus I decided to give her another unit today. -Protonix 40mg p.o. BID -GI consultation appreciated (3) Hypoxia: Plan: From CHF exacerbation X-ray shows evidence of pulmonary congestion Continue supplemental oxygen currently on 2 L oxygen through nasal cannula Wean as tolerated. (4) Acute blood loss anemia: Plan: Hgb was 11.2 in November 2023. Hgb on arrival 8.8 --> 7.8. Heme positive stools, marked elevation of BUN raises concern for UGIB -Protonix BID -Trend CBC -Transfuse PRBCs x 1 unit for Hgb < 8 with end organ dysfunction 01/12: Hemoglobin 6.9. Transfuse today 01/13: Hemoglobin 7.3 with hypotension. Transfuse again today. (5) Elevated troponin: Plan: Slight elevation in Trop, Possible demand ischemia in setting of acute exacerbation of CHF. Patient denies chest pain. -Telemetry monitoring -Repeat echo showed no change (6) MARJ (acute kidney injury): Plan: AMRJ on CKD Some improvement in cr following reduction of laix dose from 80 to 40mg Avoid nephrotoxic's Noted that creatinine trended up slowly and has stabilized at 2.8 Some degree of renal failure is to be expected for breathing comfort in the setting of CHF. Discontinued spironolactone (7) Hypercalcemia: Plan: Resolved (8) Type 2 diabetes mellitus treated with insulin: Plan: Chronic. Overall well controlled with [id number]=8.1 -Decreased insulin to Lantus 12u BID -ISS -Goal blood sugar 110 - 140 (9) PAF (paroxysmal atrial fibrillation): Plan: Chronic. Stable. -Continue Metoprolol with caution in suspected active bleed. Hold metoprolol today 01/13 -No anticoagulation (10) Hyperlipidemia: Plan: Chronic. Stable -Continue Pravastatin (11) Hypothyroidism: Plan: Chronic. Stable -Continue Synthroid Plan Patient participating in PT, they recommend SNF rehab. Peer to peer completed. Insurance denied [employer]. Case management working on placement to [facility]. CODE STATUS DNR/DNI DVT prophylaxis SCDs Admission and Anticipated Discharge Date Admission Date: January 02, 2024 Subjective Patient feels well. Denies chest pain or shortness of breath. Denies dizziness. Review of Systems Review of Systems: All systems reviewed & are unremarkable except as noted in Subjective Physical Exam Physical Exam: General: Awake, conversant Heart: S1, S2/regular rate and rhythm, no murmur rubs or gallops Lungs: Clear to auscultation bilaterally. Normal effort Abdomen: Soft/nontender/nondistended. No hepatosplenomegaly Extremities: No clubbing/cyanosis. No edema Behavior: Appropriate, cooperative Results & Data Results & Data Vital Signs (Past 12 Hours) Vital Signs Temp Pulse Pulse Resp BP BP Pulse Ox 01/14/24 15:00 36.2 C L 79 18 110/64 96 01/14/24 14:00 36.4 C L 72 18 93/52 L 99 01/14/24 13:00 36.4 C L 72 16 106/36 L 97 01/14/24 12:30 36.6 C 73 16 111/45 L 99 01/14/24 12:15 36.6 C 81 16 133/38 L 99 01/14/24 11:56 36.7 C 75 20 122/55 L 01/14/24 07:42 113/31 L 01/14/24 07:40 36.6 C 75 18 120/38 L 98 01/14/24 07:35 O2 Del Method O2 Flow Rate 01/14/24 15:00 2 01/14/24 14:00 2 01/14/24 13:00 2 01/14/24 12:30 2 01/14/24 12:15 2 01/14/24 11:56 01/14/24 07:42 01/14/24 07:40 Nasal Cannula 2 01/14/24 07:35 Nasal Cannula 2 Laboratory Results Abnormal lab results 01/13/24 01/13/24 01/13/24 Range/Units 11:21 16:49 20:45 Hgb (12.0-16.0) g/dl Hct (37.0-47.0) % POC Glucose 173 H 259 H (70-99) mg/dl Antibody Screen POSITIVE A Crossmatch See Detail 01/14/24 01/14/24 01/14/24 Range/Units 06:45 07:31 11:36 Hgb 7.3 L (12.0-16.0) g/dl Hct 22.9 L (37.0-47.0) % POC Glucose 153 H 244 H (70-99) mg/dl Antibody Screen Crossmatch PG Care Time/CCT Total # of Minutes Spent Total Time Spent with Patient: Total time spent is greater than 50% in coordination of care (as documented) at patient's floor/unit and/or counseling patient: Coding Level of Care Code 19505 SUB INP/OBS CARE MIN Diagnoses CHF (congestive heart failure) I50.9 Heart failure chronicity: acute Heart failure type: unspecified Acute GI bleeding K92.2 Hypoxia R09.02 Acute blood loss anemia D62 Elevated troponin R79.89 MARJ (acute kidney injury) N17.9 Hypercalcemia E83.52 Type 2 diabetes mellitus treated with insulin E11.9; Z79.4 PAF (paroxysmal atrial fibrillation) I48.0 Hyperlipidemia, unspecified hyperlipidemia type E78.5 Hyperlipidemia type: unspecified Hypothyroidism, unspecified type E03.9 Hypothyroidism type: unspecified (1) CHF (congestive heart failure) Heart failure chronicity: acute Heart failure type: unspecified Qualified Code(s): I50.9 - Heart failure, unspecified (10) Hyperlipidemia Hyperlipidemia type: unspecified Qualified Code(s): E78.5 - Hyperlipidemia, unspecified (11) Hypothyroidism Hypothyroidism type: unspecified Qualified Code(s): E03.9 - Hypothyroidism, unspecified
[2024-01-14] MEDS: LIDOCAINE 5% 1 PATCH TD STA (23:23)
[2024-01-15] MEDS: DICLOFENAC SOD 1% GEL 100 GM TUBE EXT SCH (08:23)
[2024-01-15 09:13] LABS: Hematocrit (blood only) 25.5 % (37.0-47.0); Hemoglobin 8.3 g/dl (12.0-16.0)
--- NOTE | 2024-01-15 14:54 | Discharge Summary ---
Date of Service January 15, 2024 Admission HPI Per Admitting Provider Temi Carter is an 88yo female with multiple medical comorbidities including AF, HTN, HLP, HFpEF and bioprosthetic aortic valve replacement presenting from home with 3-4 days of progressive weakness, fatigue as well as shortness of breath, edema and orthopnea. Patient did double her daily Lasix dose two days ago but she has not urinated more. No report of fever, chills, cough, chest pain, nausea, vomiting, diarrhea or constipation. In the ER she is afebrile, HD stable Rectal exam revealed dark colored stool, Heme POSITIVE Admission Exam Per Admitting Provider General: patient ill in appearance, NAD Skin: warm, dry, intact, no rashes or lesions, +Pallor HEENT: NC/AT, PERRL, EOMI, anicteric sclera, conjunctiva without injection, external ear normal to inspection and nontender, nares patent, moist mucus membranes, dentition intact, no oropharyngeal lesions, neck supple, trachea midline, no LAD, no thyromegaly, +JVD to mid-jaw Heart: +S1/S2, regular with frequent ectopy, 3/6 THAO across precordium, blowing murmur auscultated in axilla Lungs: equal air entry bilaterally, no rales/rhonchi/wheezes Abd: +BS, soft, NT/ND, no masses/organomegaly/ascites Ext: warm, 2+ pulses in UE/LE bilaterally, no clubbing/cyanosis. 2+ pitting edema of bilateral LE Neuro: nonfocal, patient AA&O x 4, speech intact, no facial droop, moving all extremities on command with equal strength 5/5 Principal Diagnosis Acute diastolic congestive heart failure Acute GI bleed. Family did not want to work up the GI bleed. She was treated with blood transfusions and Protonix. Acute hypoxic respiratory failure Acute blood loss anemia Acute kidney injury on CKD Discharge Exam General: Awake, conversant Heart: S1, S2/regular rate and rhythm, no murmur rubs or gallops Lungs: Clear to auscultation bilaterally. Normal effort Abdomen: Soft/nontender/nondistended. No hepatosplenomegaly Extremities: No clubbing/cyanosis. No edema Behavior: Appropriate, cooperative Discharge Data Allergies Allergy/AdvReac Type Severity Reaction Status Date / Time oxycodone Allergy Intermediate HIVES Verified 01/02/24 01:32 propoxyphene Allergy Intermediate RASH Verified 01/02/24 01:32 lisinopril Allergy Unknown patient Verified 01/02/24 01:32 does not remember Consultations 01/02/24 01:41 ED Decision to Admit Stat 01/02/24 02:41 Consult Gastroenterology Routine 01/02/24 16:09 Consult Palliative Care Routine Hospital Course (1) CHF (congestive heart failure): 88yo female with history of HFpEF (echo 10/02/23 with LVH, EF 50-55%, well seated prosthetic valve, moderate TR), 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 Likely due to acute on chronic CHF with preserved EF Reduce dose of Lasix to 40mg daily, due to worsening renal function Discontinued IV Lasix 01/04 Started p.o. Lasix 40 mg 01/05. Noted that her creatinine slowly trended upward and now stabilized at 2.4. Spoke to the family. Some degree of renal failure is to be expected for breathing comfort. Discontinued spironolactone Stable Held p.o. Lasix and metoprolol this morning for borderline hypotension (2) Acute GI bleeding: Evaluated by gastroenterology, patient and family declined any workup like EGD or colonoscopy Patient needed blood transfusions during the hospital stay -Protonix 40mg p.o. BID -GI consultation appreciated (3) Hypoxia: From CHF exacerbation X-ray shows evidence of pulmonary congestion Continue supplemental oxygen currently on 2 L oxygen through nasal cannula Wean as tolerated. (4) Acute blood loss anemia: Hgb was 11.2 in November 2023. Hgb on arrival 8.8 --> 7.8. Heme positive stools, marked elevation of BUN raises concern for UGIB -Protonix BID -Trend CBC -Transfuse PRBCs x 1 unit for Hgb < 8 with end organ dysfunction /: Hemoglobin 6.9. Transfused 01/13: Hemoglobin 7.3 with hypotension. Transfused again (5) Elevated troponin: Slight elevation in Trop, Possible demand ischemia in setting of acute exacerbation of CHF. Patient denies chest pain. -Telemetry monitoring -Repeat echo showed no change (6) MARJ (acute kidney injury): MARJ on CKD Some improvement in cr following reduction of laix dose from 80 to 40mg Avoid nephrotoxic's Noted that creatinine trended up slowly and has stabilized at 2.4 Some degree of renal failure is to be expected for breathing comfort in the setting of CHF. Discontinued spironolactone (7) Hypercalcemia: Resolved (8) Type 2 diabetes mellitus treated with insulin: Chronic. Overall well controlled with LjkL2D=6.1 -Decreased insulin to Lantus 12u BID -ISS -Goal blood sugar 110 - 140 (9) PAF (paroxysmal atrial fibrillation): Chronic. Stable. -Continue Metoprolol with caution in suspected active bleed. Hold metoprolol on 01/13 and 01/14 -No anticoagulation (10) Hyperlipidemia: Chronic. Stable -Continue Pravastatin (11) Hypothyroidism: Chronic. Stable -Continue Synthroid Plan Plan to discharge today Total Time Total Time Spent Total Time Spent (In Minutes): 35 Discharge Plan Discharge Items Patient Disposition: Transfer [facility] Fac Reason For Visit: CHF, GIB Discharge Diagnosis: Acute diastolic congestive heart failure Acute GI bleed. Family did not want to work up the GI bleed. She was treated with blood transfusions and Protonix. Acute hypoxic respiratory failure Acute blood loss anemia Acute kidney injury on CKD Activity: As commented below Activity Comment: Per PT/OT recommendation Non-emergency contact: Primary Care Provider Call non-emergency contact if: you have any medication questions and your symptoms worsen Follow-up/Referrals: Nu Castro MD [Primary Care Provider] - Claudia Zuleta PA-C [Physician Tow Picker] - 01/18/24 11:00 am (Congestive Heart Failure Program Appointment Information Early follow up is essential to managing your heart failure. An appointment has been scheduled for you with the [facility] Heart Failure Program within 7 days of discharge. Anticipate this visit to be 30-60 minutes long. Please expect a financial assistance advisor phone call from one of our nurses approximately 48 hours from discharge. They will also be placing an order for lab work to be completed 1-2 days prior to your heart failure follow up appointment. Please be sure to have this done so we can go over the results when you come in. Office Location The cardiology office building is located in front of the hospital at [address] [facility] [address]. Bring the following with you to your follow-up doctor appointments: Please bring your daily weight log any discharge paperwork all of your medication bottles with you to this visit. ) Diet: Heart Healthy and Low Sodium (2gm) Addtl Attending Provider Instructions: Advised to follow-up with PCP in 1 week Pending Studies at Discharge: No Stand-Alone Forms: My [facility] Skilled Items Patient informed of condition?: Yes DNR: Yes Discharge Level of Care: Skilled Communicable Disease: No Discharge Prognosis: Stable Lines: None Urinary Catheter: No Medications and DC Order Prescriptions: New furosemide 40 mg Tablet 40 mg PO QAM 30 Days Qty: 30 0RF pantoprazole 40 mg Tablet,Delayed Release (Dr/Ec) 40 mg PO BID 30 Days Qty: 60 0RF Continued (DME) lancets [Accu-Chek Softclix Lancets] Misc See Rx Instructions .ROUTE .MEDSUPPLY Qty: 200 5RF Rx Instructions: test twice daily; dx code-E11.9 (DME) pen needle, diabetic [BD Ultra-Fine Short Pen Needle] 31 gauge x 5/16" needle See Dose Instructions .ROUTE .MEDSUPPLY Qty: 100 1RF Rx Instructions: Use to inject once daily metoprolol succinate 100 mg tablet extended release 24 hr 100 mg PO DAILY Qty: 90 3RF (DME) pen needle, diabetic [Droplet Pen Needle] 31 gauge x 5/16" needle See Rx Instructions .Route Qty: 100 3RF Rx Instructions: USE/TEST ONCE DAILY OR DIRECTED insulin glargine [Basaglar KwikPen U-100 Insulin] 100 unit/mL (3 mL) insulin pen 30 unit subcut DAILY Qty: 15 6RF pravastatin 40 mg tablet 40 mg PO QPM Qty: 90 3RF Rx Instructions: take 1 tablet by mouth every evening multivitamin Tablet 1 tab PO DAILY ascorbic acid (vitamin C) 100 mg tablet 100 mg PO DAILY cholecalciferol (vitamin D3) 25 mcg (1,000 unit) tablet 25 mcg PO DAILY calcium carbonate-vitamin D3 [Calcium 600 + D(3)] 600 mg(1,500mg) -200 unit Tablet 1 tab PO DAILY metformin 1,000 mg tablet 1,000 mg PO BID Rx Instructions: TAKE 1 TABLET TWICE A DAY levothyroxine 125 mcg tablet 125 mcg PO DAILYBB Rx Instructions: take 1 tablet by mouth once daily for HYPOTHYROIDISM Discontinued spironolactone 25 mg tablet 12.5 mg PO DAILY Qty: 90 3RF furosemide 40 mg tablet 80 mg PO DAILY Qty: 180 3RF Discharge Orders: Discharge Order (Routine); Ordered 01/15/24 Ordered By: Don Quintana/Other Patient Handouts: Diabetes and Heart Disease Admission Data Admit Date/Time: 01/02/24 02:41 Attending Provider: Don Reyez Admit Provider: Chiqui Weaver Primary Care Provider: Nu Castro Other Providers: Harish White; Chiqui Weaver; Ben Lara; Mery Olivares Coding Level of Care Code 47230 INP/OBS DISCH >30 MIN Diagnoses CHF (congestive heart failure) I50.9 Heart failure chronicity: acute Heart failure type: unspecified Acute GI bleeding K92.2 Hypoxia R09.02 Acute blood loss anemia D62 Elevated troponin R79.89 MARJ (acute kidney injury) N17.9 Hypercalcemia E83.52 Type 2 diabetes mellitus treated with insulin E11.9; Z79.4 PAF (paroxysmal atrial fibrillation) I48.0 Hyperlipidemia, unspecified hyperlipidemia type E78.5 Hyperlipidemia type: unspecified Hypothyroidism, unspecified type E03.9 Hypothyroidism type: unspecified
== END 2024-01-15 16:46 | DRG 291 ==
LOC: ED 23:30 → EDINP 01-02 02:41 → SUATTDRO 01-02 02:41 → EDINP 01-02 19:58 → 4W 01-02 20:31 → 3W 01-12 15:47